=== PATIENT | female | born 1945 | race Caucasian/White ===

== ENCOUNTER → 2016-09-04 | Outpatient (CLI) | payer MEDICARE ==
--- NOTE | 2016-09-05 08:41 | US ---
EXAMINATION TYPE: US kidneys/renal and bladder DATE OF EXAM: 09/04/2016 5:45 PM COMPARISON: NONE CLINICAL HISTORY: E11.65 Type 2 diabetes w/hyperglycemia. EXAM MEASUREMENTS: Right Kidney: 10.5 x 5.2 x 4.9 cm Left Kidney: 10.2 x 4.8 x 4.7 cm Post Void Residual Volume: 9.6 mL Right Kidney: No hydronephrosis or masses seen Left Kidney: No hydronephrosis or masses seen Bladder: wnl Bilateral Jets seen: Yes Normal Post Void Residual: Yes IMPRESSION: No significant abnormalities.
== END | disposition home or self-care (01) ==
LOC: RADUSMAIN 17:23
PROVIDERS: ATTEND Family Medicine
DX: E11.65 Type 2 diabetes mellitus with hyperglycemia (principal)
CPT/HCPCS: 76770

== ENCOUNTER → 2017-01-24 | Outpatient (CLI) | payer MEDICARE ==
--- NOTE | 2017-01-25 11:05 | MM ---
Reason for exam: screening (asymptomatic). Last mammogram was performed 3 years ago. History: Patient is postmenopausal. Physical Findings: A clinical breast exam by your physician is recommended on an annual basis and results should be correlated with mammographic findings. MG 3D Screening Mammo W/Cad Bilateral CC and MLO view(s) were taken. Prior study comparison: January 28, 2014, bilateral MG screening mammo w CAD. July 25, 2012, bilateral digital screening mammo w/CAD. There are scattered fibroglandular densities. Benign calcifications in the left breast. No significant changes when compared with prior studies. ASSESSMENT: Benign, BI-RAD 2 RECOMMENDATION: Routine screening mammogram of both breasts in 1 year.
== END | disposition home or self-care (01) ==
LOC: RADMAMWWP 10:53
PROVIDERS: ATTEND Family Medicine
DX: Z12.31 Encounter for screening mammogram for malignant neoplasm of breast (principal)
CPT/HCPCS: 77063; G0202

== ENCOUNTER 2019-01-02 07:19 | Inpatient (IN) | payer MEDICARE ==
[2019-01-02] MEDS ORDERED: ASPIRIN 81 MG PO STA (07:35)
--- NOTE | 2019-01-02 07:39 | ED ---
General Adult HPI - General Chief complaint: Chest Pain Stated complaint: Chest Pain Time Seen by Provider: 01/02/19 07:28 Source: patient Mode of arrival: ambulatory Limitations: no limitations - History of Present Illness Initial comments: Dictation was produced using [employer] dictation software. please excuse any grammatical, word or spelling errors. Chief Complaint: 73-year-old female presents chief complaint of chest pain. History of Present Illness: Patient is 73-year-old female she presents today with chest pain. Patient was asleep when she was suddenly awoken by chest pain. She states that her symptoms, felt like epigastric abdominal pain. She did report some paresthesias to the left jaw and upper extremity. Patient has never had any symptoms like this before. She did feels nauseous however did not have any episodes of emesis. Patient has history of hypertension diabetes. Denies her seen toppiece chopper aspirin. Denies any worsening of symptoms with deep inspiration. She did feel slightly clammy however no diaphoresis. The ROS documented in this emergency department record has been reviewed and confirmed by me. Those systems with pertinent positive or negative responses have been documented in the HPI. All other systems are other negative and/or noncontributory. PHYSICAL EXAM: General Impression: Alert and oriented x3, mild distress secondary to pain HEENT: Normocephalic atraumatic, extra-ocular movements intact, pupils equal and reactive to light bilaterally, mucous membranes moist. Cardiovascular: Heart regular rate and rhythm, S1&S2 audible, no murmurs, rubs or gallops Chest: Lungs clear to auscultation bilaterally, no rhonchi, no wheeze, no rales Abdomen: Bowel sounds present, abdomen soft, non-tender, non-distended, no organomegaly Musculoskeletal: Pulses present and equal in all extremities, no peripheral edema Motor: no focal deficits noted Neurological: CN II-XII grossly intact, no focal motor or sensory deficits noted Skin: Intact with no visualized rashes Psych: Normal affect and mood ED course: 73-year-old female presents with chief complaint of chest pain. Clinical presentation is concerning for acute coronary syndrome given symptomatology. Vital signs upon arrival shows blood pressure 231/99. Rest vital signs within acceptable limits. EKG does not suggest ST segment elevation CT. Patient given aspirin and nitroglycerin with significant improvement of symptoms.Laboratory evaluation obtained. CBC, coag panel, metabolic panels obtained. Anemia is 1.1. Troponin 0.126. Patient reevaluated at bedside and is asymptomatic at this time. Repeat EKG was performed showing concerning findings for ischemia. There are T-wave inversions and possible ST elevations in the septal precordial leads that was not seen on initial EKG. There are no signs of reciprocal changes. Showed poor set her symptoms are very minimal at this time. Discussed patient case immediately with Dr. Reyes who will evaluate patient at bedside. Cardiology evaluated patient and will take patient to poultry farm laborer for coronary artery catheterization possible intervention. Discussed patient case with Dr. Harden who is willing to accept care for this patient. EKG interpretation: Ventricular rate 81, normal sinus rhythm, KS interval 152, care is 80, QTc 441. No KS prolongation, no QTC prolongation, no ST or T-wave changes noted. No old EKG for comparison. Overall, this EKG is unremarkable - Related Data Home Medications Medication Instructions Recorded Confirmed Omeprazole 20 mg PO QAM 08/01/15 01/02/19 Cetirizine HCl [Zyrtec] 10 mg PO DAILY 01/02/19 01/02/19 Losartan Potassium 100 mg PO BID 01/02/19 01/02/19 Multivit-Min/Iron/Folic/Lutein 1 tab PO DAILY 01/02/19 01/02/19 [Centrum Silver Women Tablet] sitaGLIPtin PHOS/metFORMIN HCL 1 tab PO BID 01/02/19 01/02/19 [Janumet 50-1,000 mg Tablet] Allergies Allergy/AdvReac Type Severity Reaction Status Date / Time codeine AdvReac Vomiting Verified 01/02/19 07:43 metoclopramide HCl AdvReac Hallucinati Verified 01/02/19 07:43 [From Reglan] ons morphine AdvReac Vomiting Verified 01/02/19 07:43 Review of Systems ROS Statement: Those systems with pertinent positive or pertinent negative responses have been documented in the HPI. ROS Other: All systems not noted in ROS Statement are negative. Past Medical History Past Medical History: Diabetes Mellitus, GERD/Reflux, Hypertension Additional Past Medical History / Comment(s): diarrhea since 01/2015 History of Any Multi-Drug Resistant Organisms: None Reported Past Surgical History: Tonsillectomy, Tubal Ligation Additional Past Surgical History / Comment(s): D & C Past Anesthesia/Blood Transfusion Reactions: Family History of Problems w/ Anesthesia, Postoperative Nausea & Vomiting (PONV) Past Psychological History: No Psychological Hx Reported Smoking Status: Never smoker Past Alcohol Use History: None Reported - Past Family History Mother Family Medical History: CVA/TIA, Diabetes Mellitus Additional Family Medical History / Comment(s): "blood clots in her legs when she was in her 40's from taking control" "she's 89" "just had a tia 3 months ago [05/2015] Father Family Medical History: Cancer, Congestive Heart Failure (CHF), Coronary Artery Disease (CAD), Diabetes Mellitus, Myocardial Infarction (CT) Additional Family Medical History / Comment(s): CA: skin ("tip top of his ear") General Exam Limitations: no limitations Course Vital Signs 01/02/19 01/02/19 01/02/19 07:21 07:59 08:01 Temperature 98 F Pulse Rate 85 87 87 Respiratory 18 18 18 Rate Blood Pressure 231/99 203/114 181/110 O2 Sat by Pulse 97 98 97 Oximetry 01/02/19 01/02/19 01/02/19 08:03 08:31 09:21 Temperature Pulse Rate 77 79 Respiratory 18 18 18 Rate Blood Pressure 154/95 163/110 O2 Sat by Pulse 97 96 Oximetry Medical Decision Making - Lab Data Result diagrams: 01/02/19 07:45 01/02/19 07:45 Lab Results 01/02/19 01/02/19 01/02/19 Range/Units 07:45 07:45 07:45 WBC 7.5 (3.8-10.6) k/uL RBC 4.81 (3.80-5.40) m/uL Hgb 13.2 (11.4-16.0) gm/dL Hct 39.8 (34.0-46.0) % MCV 82.7 (80.0-100.0) fL MCH 27.4 (25.0-35.0) pg MCHC 33.2 (31.0-37.0) g/dL RDW 15.0 (11.5-15.5) % Plt Count 219 (150-450) k/uL Neutrophils % 61 % Lymphocytes % 28 % Monocytes % 5 % Eosinophils % 3 % Basophils % 1 % Neutrophils # 4.6 (1.3-7.7) k/uL Lymphocytes # 2.1 (1.0-4.8) k/uL Monocytes # 0.4 (0-1.0) k/uL Eosinophils # 0.3 (0-0.7) k/uL Basophils # 0.1 (0-0.2) k/uL PT 10.0 (9.0-12.0) sec INR 0.9 (<1.2) APTT 24.3 (22.0-30.0) sec Sodium 144 (137-145) mmol/L Potassium 4.1 (3.5-5.1) mmol/L Chloride 107 (98-107) mmol/L Carbon Dioxide 23 (22-30) mmol/L Anion Gap 14 mmol/L BUN 22 H (7-17) mg/dL Creatinine 0.96 (0.52-1.04) mg/dL Est GFR (CKD-EPI)AfAm 69 (>60 ml/min/1.73 sqM) Est GFR (CKD-EPI)NonAf 60 (>60 ml/min/1.73 sqM) Glucose 242 H (74-99) mg/dL Calcium 10.2 (8.4-10.2) mg/dL Magnesium 1.1 L (1.6-2.3) mg/dL Total Bilirubin 0.5 (0.2-1.3) mg/dL AST 34 (14-36) U/L ALT 31 (9-52) U/L Alkaline Phosphatase 141 H (38-126) U/L Troponin I (0.000-0.034) ng/mL Total Protein 8.3 H (6.3-8.2) g/dL Albumin 4.7 (3.5-5.0) g/dL Lipase 165 (23-300) U/L 01/02/19 Range/Units 07:45 WBC (3.8-10.6) k/uL RBC (3.80-5.40) m/uL Hgb (11.4-16.0) gm/dL Hct (34.0-46.0) % MCV (80.0-100.0) fL MCH (25.0-35.0) pg MCHC (31.0-37.0) g/dL RDW (11.5-15.5) % Plt Count (150-450) k/uL Neutrophils % % Lymphocytes % % Monocytes % % Eosinophils % % Basophils % % Neutrophils # (1.3-7.7) k/uL Lymphocytes # (1.0-4.8) k/uL Monocytes # (0-1.0) k/uL Eosinophils # (0-0.7) k/uL Basophils # (0-0.2) k/uL PT (9.0-12.0) sec INR (<1.2) APTT (22.0-30.0) sec Sodium (137-145) mmol/L Potassium (3.5-5.1) mmol/L Chloride (98-107) mmol/L Carbon Dioxide (22-30) mmol/L Anion Gap mmol/L BUN (7-17) mg/dL Creatinine (0.52-1.04) mg/dL Est GFR (CKD-EPI)AfAm (>60 ml/min/1.73 sqM) Est GFR (CKD-EPI)NonAf (>60 ml/min/1.73 sqM) Glucose (74-99) mg/dL Calcium (8.4-10.2) mg/dL Magnesium (1.6-2.3) mg/dL Total Bilirubin (0.2-1.3) mg/dL AST (14-36) U/L ALT (9-52) U/L Alkaline Phosphatase (38-126) U/L Troponin I 0.126 H* (0.000-0.034) ng/mL Total Protein (6.3-8.2) g/dL Albumin (3.5-5.0) g/dL Lipase (23-300) U/L Disposition Clinical Impression: Chest pain Disposition: ADMITTED IP TO THIS HOSP Condition: Critical Decision Time: 09:32
[2019-01-02] MEDS: NITROGLYCERIN SL TABS 0.4 MG TAB SUBLINGUAL STA ×3 (07:46→08:08)
[2019-01-02 07:54] LABS: Basophils # (A) 0.1 k/uL (0-0.2); Basophils % (A) 1 %; Eosinophils # (A) 0.3 k/uL (0-0.7); Eosinophils % (A) 3 %; HCT 39.8 % (34.0-46.0); HGB 13.2 gm/dL (11.4-16.0); Lymphocytes # (A) 2.1 k/uL (1.0-4.8); Lymphocytes % (A) 28 %; MCH 27.4 pg (25.0-35.0); MCHC 33.2 g/dL (31.0-37.0); MCV 82.7 fL (80.0-100.0); Mean Platelet Volume 9.5; Monocytes # (A) 0.4 k/uL (0-1.0); Monocytes % (A) 5 %; Neutrophils # (A) 4.6 k/uL (1.3-7.7); Neutrophils % (A) 61 %; Platelet Count 219 k/uL (150-450); RBC 4.81 m/uL (3.80-5.40); WBC 7.5 k/uL (3.8-10.6)
[2019-01-02 08:04] LABS: Albumin 4.7 g/dL (3.5-5.0); Calcium 10.2 mg/dL (8.4-10.2); INR 0.9 (<1.2); Magnesium 1.1 mg/dL (1.6-2.3); Partial Thromboplastin Time 24.3 sec (22.0-30.0); Potassium 4.1 mmol/L (3.5-5.1); Total Bilirubin 0.5 mg/dL (0.2-1.3); Total Protein 8.3 g/dL (6.3-8.2)
[2019-01-02] MEDS ORDERED: NITROGLYCERIN OINT 1 INCH/GM PACKET TOPICAL STA (08:12)
--- NOTE | 2019-01-02 08:39 | XR ---
EXAMINATION TYPE: XR chest 2V DATE OF EXAM: 01/02/2019 COMPARISON: None INDICATION: Chest pain nausea TECHNIQUE: Frontal and lateral views of the chest are obtained. FINDINGS: The heart size is normal. The pulmonary vasculature is normal. The lungs are clear. IMPRESSION: 1. No acute pulmonary process.
--- NOTE | 2019-01-02 08:41 | XR ---
EXAMINATION TYPE: XR abdomen 1V DATE OF EXAM: 01/02/2019 COMPARISON: 07/02/2011 INDICATION: Nausea TECHNIQUE: Single view abdomen upright view FINDINGS: Specific bowel gas is present within the midabdomen. No free air is evident. No suspicious differenti al air-fluid levels are present. Psoas margins are normal. No organomegaly is present. There is a 0.8 cm calcification in the left hemipelvis, present previously. This may be within the sp bakari. IMPRESSION: 1. Stable left abdomen calcification. 2. Nonspecific abdomen
[2019-01-02] MEDS ORDERED: HEPARIN SODIUM,PORCINE 5,000 UNIT/ML 1 ML VIAL IV PRN (08:50)
[2019-01-02] MEDS ORDERED: HEPARIN SODIUM,PORCINE 5,000 UNIT/ML 1 ML VIAL IV ONE (08:50)
[2019-01-02] MEDS ORDERED: NITROGLYCERIN SL TABS 0.4 MG TAB SUBLINGUAL PRN ×3 (08:55→11:09)
[2019-01-02] MEDS ORDERED: METOPROLOL TARTRATE 25 MG TAB PO SCH (09:00)
[2019-01-02] MEDS ORDERED: HEPARIN SOD,PORK IN 0.45% NACL 25,000 UNIT in 0.45% NACL 1 250ML.BAG IV SCH (09:00)
[2019-01-02] MEDS: MAGNESIUM SULFATE-D5W PMX 1 GM in DEXTROSE/WATER 1 100ML.BAG IVPB SCH ×2 (09:12→11:42)
[2019-01-02] MEDS ORDERED: LIDOCAINE 1% INJ 10MG/ML (20 ML MDV) ONE (09:40)
[2019-01-02] MEDS ORDERED: VERAPAMIL 2.5 MG/ML 2 ML AMP ONE (09:40)
[2019-01-02] MEDS ORDERED: fentaNYL (PF) 50 MCG/ML 2 ML AMP ONE (09:40)
[2019-01-02] MEDS ORDERED: ALPRAZolam 0.5 MG TAB PO PRN (09:48)
[2019-01-02] MEDS ORDERED: ASPIRIN 325 MG TAB PO STA (09:48)
[2019-01-02] MEDS ORDERED: ATORVASTATIN 80 MG TAB PO STA (09:48)
[2019-01-02] MEDS ORDERED: ALPRAZolam 0.25 MG TAB PO PRN (09:48)
[2019-01-02] MEDS ORDERED: SODIUM CHLORIDE 0.9% 1,000 ML in EMPTY BAG 1 BAG IV ONE (09:48)
[2019-01-02] MEDS ORDERED: IV FLUID CONTINUATION 1,000 ML IV ONE (09:50)
[2019-01-02] MEDS ORDERED: fentaNYL (PF) 50 MCG/ML 2 ML AMP IV ONE (10:00)
[2019-01-02] MEDS ORDERED: LIDOCAINE 1% INJ 10MG/ML (20 ML MDV) SQ ONE (10:00)
[2019-01-02] MEDS ORDERED: NITROGLYCERIN SL TABS 0.4 MG TAB SUBLINGUAL ONE ×2 (10:01→10:02)
[2019-01-02] MEDS ORDERED: VERAPAMIL SYRINGE (5 MG/10 ML) INTRAARTER ONE (10:01)
[2019-01-02] MEDS ORDERED: BIVALIRUDIN BOLUS 250 MG/50 ML IV ONE (10:15)
[2019-01-02] MEDS ORDERED: BIVALIRUDIN 250 MG in SODIUM CHLORIDE 0.9% 50 ML IV ONE (10:16)
[2019-01-02] MEDS ORDERED: TICAGRELOR 90 MG TAB ONE (10:20)
[2019-01-02] MEDS ORDERED: TICAGRELOR 90 MG TAB PO ONE (10:23)
[2019-01-02] MEDS ORDERED: IOPAMIDOL-370 100ML BTL INJ ONE ×2 (10:24→10:44)
--- NOTE | 2019-01-02 10:35 | CONS ---
CONSULTATION Mrs. Jones is a 73-year-old female with known history of family history of premature coronary artery disease, history of diabetes, hypertension, no history of smoking, who presented with symptoms of chest discomfort. She started yesterday complaining of indigestion, subsequently had chest discomfort radiating to the neck and to the left arm. Because of her persistent symptoms, she came into the emergency room. The patient at the time of my evaluation, has improvement in her symptoms. She is usually average in exercise tolerance, has no exertional chest discomfort. She has mild dyspnea. No dizziness. No palpitation. No syncope. She has no prior documented history of obstructive coronary artery disease. She has no clear PND or orthopnea. No significant peripheral edema. Her initial EKG showed minimal ST-segment elevation on the lateral precordial leads. Subsequent EKG showed T-wave inversion in the anterolateral leads consistent with anterior wall ischemia. REVIEW OF SYSTEMS: RESPIRATORY SYSTEM: She has no documented history of asthma, emphysema or bronchitis. GI SYSTEM: She has history of reflux, but no recent GI bleeding. No peptic ulcer disease. SYSTEM: No dysuria or hematuria. NERVOUS SYSTEM: No history of stroke or seizure. SOCIAL HISTORY: She drinks about 4 cups of coffee a day. No history of alcohol intake. MEDICATIONS: Her medication her home include losartan 100 mg daily, Janumet 50-1000 daily, and omeprazole. PHYSICAL EXAMINATION: She is a 73-year-old female, alert, oriented, in no apparent distress. Blood pressure 163/110 with the heart rate in the 70s. HEAD: Normocephalic. EYES: Sclerae anicteric. NECK: Good carotid upstroke. No bruit. No jugular venous distention. LUNGS: Clear to auscultation. HEART: Regular rate and rhythm. S1, S2. No S3 with systolic murmur heard at the base, early peaking. No diastolic murmur. No rub. ABDOMEN: Soft, nontender. Positive bowel sounds. No organomegaly. EXTREMITIES: No edema. Intact distal pulses. LAB DATA: Lab data revealed a hemoglobin of 13.2. BUN and creatinine 22 and 0.96. Blood sugar 242. Troponin 0.126. Initial EKG revealed a sinus mechanism with a normal axis, evidence of left ventricular hypertrophy with minimal ST-segment elevation in lead V2 through V6. Subsequent EKG revealed T-wave inversion in the same leads with minimal ST-segment changes. IMPRESSION: 1. Evidence of acute myocardial infarction in a patient with multiple risk factors. 2. History of hypertension. 3. Diabetes. 4. Family history of premature coronary artery disease. RECOMMENDATION: I recommend proceeding with coronary angiography to assess her status and guide her treatment. The rationale behind the procedure as well as the risks and complications were discussed with the patient and her daughter and they are in full understanding and agreement. Thank you for this consult. We will follow with you. RITU / IJN: [id number] /
[2019-01-02] MEDS ORDERED: MAG HYDROX/AL HYDROX/SIMETH 30 ML CUP PO PRN (11:09)
[2019-01-02] MEDS ORDERED: ZOLPIDEM 5 MG TAB PO PRN (11:09)
[2019-01-02] MEDS ORDERED: ATROPINE SULFATE 0.1 MG/ML 10ML SYRINGE IV PRN (11:09)
[2019-01-02] MEDS ORDERED: RX INFO: IV CONTRAST WAS GIVEN 1 EACH MISC MISCELLANE PRN (11:09)
[2019-01-02] MEDS ORDERED: SODIUM CHLORIDE 0.9% 1,000 ML IV SCH (11:15)
[2019-01-02] MEDS: LOSARTAN 50 MG TAB PO SCH (11:43)
[2019-01-02 11:50] LABS: Glucose,Whole Blood 214 mg/dL (75-99)
[2019-01-02 12:29] LABS: Glucose,Whole Blood 219 mg/dL (75-99)
--- NOTE | 2019-01-02 12:35 | CC ---
CARDIAC CATHETERIZATION REPORT Mrs. Jones is a 73-year-old female with known history of diabetes, history of hypertension, family history of premature coronary disease who presented to the emergency room with symptoms of chest discomfort radiating to the neck and to the jaw. She had minimal ST-segment elevation initially and subsequently she had T-wave inversion in the anterolateral leads. In view of her presentation and her history, recommendation made regarding cardiac catheterization, the procedures, risks, and complications were discussed with the patient who is in full understanding and agreement. PROCEDURE: Patient was brought to sleep lab technician in a fasting semi-sedated state after receiving fentanyl and Benadryl and achieving moderate conscious sedated state. Using Xylocaine anesthesia and Seldinger technique, a 6-[place] sheath was introduced in the right radial artery. There was a big loop in the right subclavian artery that prevented torquing of the catheter. In view of that, using Xylocaine anesthesia and Seldinger technique, a 6-[place] sheath was introduced right femoral artery, left coronary angiography performed with 6-[place] FR4 guiding catheter after obtaining images of the left coronary system and angioplasty and stenting. A 6-[place] right Gurwinder catheter was used to cannulate the right coronary ostium and images of the right coronary artery was performed. Following that, a 6-[place] tight pigtail catheter was introduced in the left ventricle and pressures were calculated, following that, catheter and sheaths were removed. Hemostasis was obtained with deployment of an Angio-Seal in the right femoral artery and compression of the right radial artery. There was no immediate complication. Patient is returned to her room in stable condition. FINDINGS: LEFT MAIN: This is a large-sized vessel, bifurcating into left circumflex, left anterior descending artery. Left main coronary artery has no evidence of high-grade stenosis. LEFT ANTERIOR DESCENDING ARTERY: This is a large-sized vessel, reaching toward the apex, tapers down distally giving rise to a small diagonal branch proximally, the second diagonal branch is large in caliber, very tortuous. The LAD after the takeoff of second diagonal branch has a 99% stenosis with slow flow distally. The second diagonal branch is very tortuous and toward the distal segment has a lesion of 95%. LEFT CIRCUMFLEX: This is a nondominant vessel, giving rise to two obtuse marginal branch, the vessel is quite tortuous. The left circumflex proximally, prior to the takeoff of the obtuse marginal branch has a 30% plaque. The rest of the vessel has no high-grade stenosis. RIGHT CORONARY ARTERY: This is a large dominant vessel, bifurcating into PDA and posterolateral segment and branches. The right PDA reaches toward the infero apical wall of the right coronary artery as well as branches have no evidence of obstructive coronary artery disease. LEFT VENTRICULOGRAM: Left ventriculogram is not performed. HEMODYNAMICS: There was no gradient across the aortic valve, the left ventricular end-diastolic pressure was 24 to 26 mmHg. CONCLUSION: 1. 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 2. Critical stenosis and a very tortuous second obtuse marginal branch. 3. Mild to moderate disease in the proximal left circumflex. RECOMMENDATION: In view of finding anatomy, I recommend proceeding with angioplasty and stenting of the LAD. The procedures, risks and complication were discussed with the patient who is in full understanding and agreement. MMBALJEET / IJN: [id number] /
--- NOTE | 2019-01-02 12:56 | PTCA ---
PERCUTANEOUSTRANS CORORONARY ANGIOGRAPHY ANGIOPLASTY PROCEDURE NOTE: Mrs. Jones is a 73-year-old female who presented with an acute anterior myocardial infarction, underwent cardiac catheterization, was found to have critical stenosis involving the mid LAD. In view of that, recommendation made regarding angioplasty and stenting. The procedures, risks and complication were discussed with the patient who is in full understanding and agreement. PROCEDURE DESCRIPTION: Using the 6-[place] FR4 guiding catheter, a 0.014 balanced medium weight J-wire was advanced across the lesion, positioned distally. Then a 2.5 x 12 mm Trek balloon was advanced and one inflation was done at 8 atmospheres. Following that, the balloon was removed and a 3.0 x 18 mm Xience Kellen stent was deployed, postdilated to 16 atmospheres. After the last inflation, after appropriate wait, the balloon was withdrawn back in the guiding catheter. Following that, a 0.014 balanced medium weight J-wire was advanced in the system and passed into the second diagonal branch. Because of the severe tortuosity, there was inability to advance that wire. That wire was kept in place and another 0.014 whisper J-wire was advanced and positioned across the lesion. Subsequently, attempt to advance a 2.5 x 8 mm Trek balloon were unsuccessful because of the severe tortuosity at that point, the guiding wire, the balloon were withdrawn back in the guiding catheter. Images were obtained, repeated. Those images reveal stable successful stenting. At that point, the guiding catheter, the balloon and the guidewire were removed and right coronary angiography and left ventricular end- diastolic pressure were calculated. Following that catheter and sheaths were removed. Hemostasis was obtained with deployment of an Angio-Seal in the right femoral artery and TR band on the right radial artery. Of note, the patient received Angiomax per protocol as well as oral loading dose of Brilinta. She was pain-free at the end of the procedure. RESULTS: Successful stenting of the mid right coronary artery with reduction of stenosis from 99% to 0%. RECOMMENDATION: Patient will be continued on aspirin, Brilinta, beta ramos, IRWIN inhibitor, statin. The importance of dual antiplatelet treatment was discussed with the patient and her family and they are in full understanding and agreement. Duration of procedure is 51 minutes. MMODL / IJN: [id number] /
[2019-01-02] MEDS: INSULIN ASPART (NovoLOG) 100 UNIT/ML VIAL SQ SCH ×3 (13:01→20:46)
[2019-01-02 14:20] VITALS: BMI 31.1
[2019-01-02] MEDS ORDERED: METOPROLOL TARTRATE 25 MG TAB PO STA (15:07)
[2019-01-02] MEDS ORDERED: ONDANSETRON 4 MG/2 ML VIAL IVP PRN (15:08)
[2019-01-02 17:52] LABS: Glucose,Whole Blood 194 mg/dL (75-99)
[2019-01-02] MEDS ORDERED: FUROSEMIDE 10 MG/ML 2 ML VIAL IV ONE (19:01)
[2019-01-02] MEDS ORDERED: hydrALAZINE HCL 50 MG TAB PO SCH (19:02)
[2019-01-02] MEDS ORDERED: hydrALAZINE HCL 50 MG TAB PO STA (19:28)
[2019-01-02] MEDS: TICAGRELOR 90 MG TAB PO SCH (20:32)
[2019-01-02] MEDS: ATORVASTATIN 80 MG TAB PO SCH (20:32)
[2019-01-02 20:41] LABS: Glucose,Whole Blood 147 mg/dL (75-99)
[2019-01-02] MEDS ORDERED: hydrALAZINE HCL 25 MG TAB PO SCH (21:00)
[2019-01-02] MEDS: METOPROLOL TARTRATE 25 MG TAB PO SCH (22:15)
[2019-01-03 05:05] LABS: Basophils # (A) 0.1 k/uL (0-0.2); Basophils % (A) 0 %; Eosinophils # (A) 0.2 k/uL (0-0.7); Eosinophils % (A) 2 %; HCT 35.9 % (34.0-46.0); HGB 11.9 gm/dL (11.4-16.0); Lymphocytes # (A) 2.9 k/uL (1.0-4.8); Lymphocytes % (A) 23 %; MCH 26.9 pg (25.0-35.0); MCHC 33.1 g/dL (31.0-37.0); MCV 81.1 fL (80.0-100.0); Mean Platelet Volume 9.6; Monocytes # (A) 0.6 k/uL (0-1.0); Monocytes % (A) 5 %; Neutrophils # (A) 8.4 k/uL (1.3-7.7); Neutrophils % (A) 68 %; Platelet Count 218 k/uL (150-450); RBC 4.43 m/uL (3.80-5.40); RDW 15.1 % (11.5-15.5); WBC 12.4 k/uL (3.8-10.6)
[2019-01-03 05:17] LABS: Calcium 8.9 mg/dL (8.4-10.2); Potassium 3.8 mmol/L (3.5-5.1)
--- NOTE | 2019-01-03 06:45 | ECHOF ---
Referral Reason:mi MEASUREMENTS -------- HEIGHT: 157.5 cm WEIGHT: 77.1 kg BP: 163/92 RVIDd: 2.9 cm (< 3.3) IVSd: 1.3 cm (0.6 - 1.1) LVIDd: 4.2 cm (3.9 - 5.3) LVPWd: 1.3 cm (0.6 - 1.1) IVSs: 1.6 cm LVIDs: 2.7 cm LVPWs: 1.6 cm LA Diam: 3.4 cm (2.7 - 3.8) LAESV Index (A-L): 21.66 ml/m Ao Diam: 2.9 cm (2.0 - 3.7) AV Cusp: 1.9 cm (1.5 - 2.6) MV EXCURSION: 12.495 mm (> 18.000) MV EF SLOPE: 38 mm/s (70 - 150) EPSS: 1.4 cm MV E Moises: 0.59 m/s MV DecT: 282 ms MV A Moises: 0.99 m/s MV E/A Ratio: 0.59 FINDINGS -------- Sinus rhythm. This was a technically adequate study. The left ventricular size is normal. There is mild concentric left ventricular hypertrophy. Overa ll left ventricular systolic function is mild-moderately impaired with, an EF between 40 - 45 %. Ap ical anterior LV wall motion is hypokinetic. Apical inferior LV wall motion is hypokinetic. Api wes septum LV wall motion is hypokinetic. ?? Takatsubo The right ventricle is normal in size. Normal LA size by volume 22+/-6 ml/m2. The right atrium is normal in size. Interatrial and interventricular septum intact. There is mild aortic valve sclerosis. The mitral valve leaflets are mildly thickened. The tricuspid valve appears structurally normal. The pulmonic valve was not well visualized. The aortic root size is normal. Normal inferior vena cava with normal inspiratory collapse consistent with estimated right atrial pre ssure of 5 mmHg. There is no pericardial effusion. CONCLUSIONS -------- 1. Sinus rhythm. 2. This was a technically adequate study. 3. The left ventricular size is normal. 4. There is mild concentric left ventricular hypertrophy. 5. Apical anterior LV wall motion is hypokinetic. 6. Apical inferior LV wall motion is hypokinetic. 7. Apical septum LV wall motion is hypokinetic. 8. The right ventricle is normal in size. 9. Normal LA size by volume 22+/-6 ml/m2. 10. The right atrium is normal in size. 11. Interatrial and interventricular septum intact. 12. There is mild aortic valve sclerosis. 13. The mitral valve leaflets are mildly thickened. 14. The tricuspid valve appears structurally normal. 15. The pulmonic valve was not well visualized. 16. The aortic root size is normal. 17. Normal inferior vena cava with normal inspiratory collapse consistent with estimated right atrial pressure of 5 mmHg. 18. There is no pericardial effusion. AGRICULTURE LABORATORY TECHNICIAN: Becca Amos RDCS
[2019-01-03 06:57] LABS: Glucose,Whole Blood 213 mg/dL (75-99)
[2019-01-03] MEDS: INSULIN ASPART (NovoLOG) 100 UNIT/ML VIAL SQ SCH ×4 (07:02→21:15)
[2019-01-03] MEDS ORDERED: ASPIRIN 325 MG TAB PO SCH (09:00)
[2019-01-03] MEDS: ASPIRIN 81 MG PO SCH (10:13)
[2019-01-03] MEDS: hydrALAZINE HCL 50 MG TAB PO SCH ×3 (10:13→21:15)
[2019-01-03] MEDS: METOPROLOL TARTRATE 25 MG TAB PO SCH ×2 (10:14→21:15)
[2019-01-03] MEDS: TICAGRELOR 90 MG TAB PO SCH ×2 (10:14→21:17)
[2019-01-03] MEDS: LOSARTAN 50 MG TAB PO SCH (10:14)
[2019-01-03 11:31] LABS: Glucose,Whole Blood 240 mg/dL (75-99)
[2019-01-03] MEDS: PANTOPRAZOLE 40 MG TABLET PO SCH (12:26)
[2019-01-03] MEDS: amLODIPine 10 MG TAB PO SCH (12:26)
[2019-01-03] MEDS ORDERED: ACETAMINOPHEN TAB 500 MG TAB PO PRN (14:04)
--- NOTE | 2019-01-03 16:06 | P.HPIM ---
History of Present Illness This is a pleasant 73 years old female with past medical history of COPD, diabetes mellitus, hypertension, GERD. She presents with chest pain. Patient underwent cardiac cath yesterday with stent placement in LAD. Cardiology team are closely following the patient. Patient has no complaints today except for mild stomach upset. She has mild leukocytosis. Review of Systems CONSTITUTIONAL: No fever, no malaise, no fatigue. HEENT: No recent visual problems or hearing problems. Denied any sore throat. CARDIOVASCULAR: No orthopnea, PND, no palpitations, no syncope. PULMONARY: No shortness of breath, no cough, no hemoptysis. GASTROINTESTINAL: No diarrhea, no nausea, no vomiting, no abdominal pain. Normoactive bowel sounds. NEUROLOGICAL: No headaches, no weakness, no numbness. HEMATOLOGICAL: Denies any bleeding or petechiae. GENITOURINARY: Denies any burning micturition, frequency, or urgency. MUSCULOSKELETAL/RHEUMATOLOGICAL: Denies any joint pain, swelling, or any muscle pain. ENDOCRINE: Denies any polyuria or polydipsia. Past Medical History Past Medical History: COPD, Diabetes Mellitus, GERD/Reflux, Hypertension Additional Past Medical History / Comment(s): NIDDM type II, borderline high cholesterol, recently "pulled" R upper arm muscle, diarrhea on and off d/t metformin per pt, R leg varicosity, seasonal sinus problems. History of Any Multi-Drug Resistant Organisms: None Reported Past Surgical History: Tonsillectomy, Tubal Ligation Additional Past Surgical History / Comment(s): D & C, colonoscopy with cecal polypectomy, bilateral cataract removals/lens implants. Past Anesthesia/Blood Transfusion Reactions: Postoperative Nausea & Vomiting (PONV) Smoking Status: Never smoker - Past Family History Mother Family Medical History: CVA/TIA, Diabetes Mellitus, Deep Vein Thrombosis (DVT) Additional Family Medical History / Comment(s): "blood clots in her legs when she was in her 40's from taking control". TIAs Father Family Medical History: Cancer, Congestive Heart Failure (CHF), Coronary Artery Disease (CAD), Diabetes Mellitus, Myocardial Infarction (CT) Additional Family Medical History / Comment(s): Father had a CT at the age of 54yrs. CA: skin ("tip top of his ear"). He of CHF at the age of 84 yrs. Medications and Allergies Home Medications Medication Instructions Recorded Confirmed Type Omeprazole 20 mg PO QAM 08/01/15 01/02/19 History Cetirizine HCl [Zyrtec] 10 mg PO DAILY 01/02/19 01/02/19 History Losartan Potassium 100 mg PO BID 01/02/19 01/02/19 History Multivit-Min/Iron/Folic/Lutein 1 tab PO DAILY 01/02/19 01/02/19 History [Centrum Silver Women Tablet] sitaGLIPtin PHOS/metFORMIN HCL 1 tab PO BID 01/02/19 01/02/19 History [Janumet 50-1,000 mg Tablet] Allergies Allergy/AdvReac Type Severity Reaction Status Date / Time codeine AdvReac Vomiting Verified 01/02/19 07:43 metoclopramide HCl AdvReac Hallucinati Verified 01/02/19 07:43 [From Reglan] ons morphine AdvReac Vomiting Verified 01/02/19 07:43 Physical Exam Vitals: Vital Signs Temp Pulse Resp BP BP Pulse Ox 01/03/19 14:54 160/84 01/03/19 13:00 78 18 151/86 01/03/19 12:00 98.0 F 61 20 149/73 95 01/03/19 11:00 63 17 140/83 95 01/03/19 10:00 85 20 164/89 01/03/19 09:00 73 18 154/79 95 01/03/19 08:00 98.3 F 70 15 161/86 94 L 01/03/19 06:00 66 12 149/69 93 L 01/03/19 05:30 62 15 142/75 96 01/03/19 05:00 66 18 148/73 95 01/03/19 04:30 67 20 153/78 94 L 01/03/19 04:00 99.2 F 68 14 121/95 96 01/03/19 03:30 63 23 134/81 95 01/03/19 03:00 61 22 147/76 95 01/03/19 02:30 63 23 128/74 95 01/03/19 02:00 65 23 110/77 93 L 01/03/19 01:30 61 24 106/74 94 L 01/03/19 01:00 60 23 141/73 97 01/03/19 00:30 62 15 135/66 96 01/03/19 00:00 99.5 F 62 18 124/67 97 01/02/19 23:30 63 12 109/96 96 01/02/19 23:00 69 18 159/89 95 01/02/19 22:30 77 14 145/73 96 01/02/19 22:00 78 12 140/80 97 01/02/19 21:30 78 17 160/80 97 01/02/19 21:00 73 23 166/89 95 01/02/19 20:30 72 155/86 95 01/02/19 20:00 99.8 F H 70 140/126 95 01/02/19 19:00 69 30 H 170/99 96 01/02/19 18:30 72 17 173/94 96 01/02/19 18:00 67 16 178/90 98 01/02/19 17:30 62 25 H 179/90 98 01/02/19 17:00 61 24 166/97 97 01/02/19 16:40 61 18 166/97 98 01/02/19 16:30 60 10 L 176/86 98 01/02/19 16:10 66 18 192/118 99 Intake and Output 01/03/19 01/03/19 01/03/19 06:59 14:59 22:59 Intake Total 800 1300 Output Total 635 750 Balance 165 550 Intake: IV 800 800 Sodium Chloride 0.9% 1, 800 800 000 ml @ 100 mls/hr IV . Q10H COUNTS INCLUDE 234 BEDS AT THE [facility] Rx#:[id number] Oral 500 Output: Urine 635 750 Other: Voiding Method Indwelling Catheter Indwelling Catheter Weight 82.1 kg GENERAL: The patient is alert and oriented x3, not in any acute distress. Well developed, well nourished. HEENT: Pupils are round and equally reacting to light. EOMI. No scleral icterus. No conjunctival pallor. Normocephalic, atraumatic. No pharyngeal erythema. No thyromegaly. CARDIOVASCULAR: S1 and S2 present. No murmurs, rubs, or gallops. PULMONARY: Chest is clear to auscultation, no wheezing or crackles. ABDOMEN: Soft, nontender, nondistended, normoactive bowel sounds. No palpable organomegaly. MUSCULOSKELETAL: No joint swelling or deformity. EXTREMITIES: No cyanosis, clubbing, or pedal edema. NEUROLOGICAL: Gross neurological examination did not reveal any focal deficits. SKIN: No rashes. Results CBC & Chem 7: 01/03/19 04:24 01/03/19 04:24 Labs: Abnormal Lab Results - Last 24 Hours (Table) 01/02/19 01/02/19 01/02/19 Range/Units 17:51 18:02 20:39 WBC (3.8-10.6) k/uL Neutrophils # (1.3-7.7) k/uL Chloride (98-107) mmol/L Carbon Dioxide (22-30) mmol/L Glucose (74-99) mg/dL POC Glucose (mg/dL) 194 H 147 H (75-99) mg/dL Troponin I 1.290 H* (0.000-0.034) ng/mL 01/02/19 01/03/19 01/03/19 Range/Units 23:32 04:24 04:24 WBC 12.4 H (3.8-10.6) k/uL Neutrophils # 8.4 H (1.3-7.7) k/uL Chloride 108 H (98-107) mmol/L Carbon Dioxide 21 L (22-30) mmol/L Glucose 178 H (74-99) mg/dL POC Glucose (mg/dL) (75-99) mg/dL Troponin I 2.190 H* (0.000-0.034) ng/mL 01/03/19 01/03/19 Range/Units 06:55 11:29 WBC (3.8-10.6) k/uL Neutrophils # (1.3-7.7) k/uL Chloride (98-107) mmol/L Carbon Dioxide (22-30) mmol/L Glucose (74-99) mg/dL POC Glucose (mg/dL) 213 H 240 H (75-99) mg/dL Troponin I (0.000-0.034) ng/mL Thrombosis Risk Factor Assmnt - Choose All That Apply Any of the Below Risk Factors Present?: Yes Each Factor Represents 1 point: Abnormal pulmonary function (COPD), Obesity (BMI >25) Other Risk Factors: Yes Each Risk Factor Represents 2 Points: Age 61-74 years Other congenital or acquired thrombophilia - If yes, enter type in comment: No Thrombosis Risk Factor Assessment Total Risk Factor Score: 4 Thrombosis Risk Factor Assessment Level: Moderate Risk Assessment and Plan Assessment: Chest pain. Status post cardiac cath and stent placement Diabetes mellitus Hypertension mild leukocytosis, mostly reactive COPD with no acute exacerbation Plan: This is a pleasant 73 years old female who presents because of chest pain. She underwent cardiac cath and stent placement by program research specialist team. Continue with aspirin and Brilinta Labs and medication were reviewed.. Continue same treatment. Continue with symptomatic treatment. Resume home medication. Monitor lytes and vitals. DVT and GI prophylaxis. Further recommendations of the clinical course of the patient DVT prophylaxis: Subcutaneous Lovenox GI Prophylaxis: Pepcid
[2019-01-03 16:56] LABS: Glucose,Whole Blood 264 mg/dL (75-99)
--- NOTE | 2019-01-03 20:42 | PN ---
PROGRESS NOTE This is a 73-year-old lady that was admitted to hospital with non ST-segment elevation [place]. Underwent cardiac catheterization and angioplasty of mid LAD. This morning, the patient is doing well and is free of significant symptoms. On exam, blood pressure is elevated at 150/79, respiratory rate is 18. Chest exam reveals good air entry bilaterally. Heart exam reveals first and second heart sounds. No gallop. Exam of extremities did not reveal any edema. Groin is free of bleeding, bruit, hematoma. The radial artery site appears normal. ASSESSMENT: 1. Acute non ST-segment elevation myocardial infarction, status post angioplasty of LAD. 2. Uncontrolled hypertension. PLAN: I will add amlodipine 10 mg daily for optimal blood pressure control. An echocardiogram on this admission shows an ejection fraction of 40-45 percent. MMMASTERL / IJN: [id number] /
[2019-01-03] MEDS: ATORVASTATIN 80 MG TAB PO SCH (21:15)
[2019-01-03] MEDS: FAMOTIDINE 20 MG/2 ML VIAL IV SCH (21:15)
[2019-01-03 21:25] LABS: Glucose,Whole Blood 183 mg/dL (75-99)
[2019-01-03] MEDS ORDERED: Magnesium Replacement Protocol 1 EACH MISC MISCELLANE PRN (21:25)
[2019-01-04 05:40] LABS: Basophils # (A) 0.1 k/uL (0-0.2); Basophils % (A) 1 %; Eosinophils # (A) 0.2 k/uL (0-0.7); Eosinophils % (A) 3 %; HGB 12.3 gm/dL (11.4-16.0); Lymphocytes # (A) 2.2 k/uL (1.0-4.8); Lymphocytes % (A) 22 %; MCH 27.2 pg (25.0-35.0); MCHC 33.2 g/dL (31.0-37.0); MCV 81.9 fL (80.0-100.0); Mean Platelet Volume 9.7; Monocytes # (A) 0.6 k/uL (0-1.0); Monocytes % (A) 6 %; Neutrophils # (A) 6.4 k/uL (1.3-7.7); Neutrophils % (A) 66 %; Platelet Count 216 k/uL (150-450); RBC 4.51 m/uL (3.80-5.40); RDW 15.2 % (11.5-15.5); WBC 9.6 k/uL (3.8-10.6)
[2019-01-04 05:48] LABS: Calcium 9.7 mg/dL (8.4-10.2); Magnesium 1.7 mg/dL (1.6-2.3); Potassium 4.5 mmol/L (3.5-5.1)
[2019-01-04] MEDS: INSULIN DETEMIR (LEVEMIR) 100 UNIT/ML SYR SQ SCH ×2 (06:36→21:20)
[2019-01-04] MEDS: PANTOPRAZOLE 40 MG TABLET PO SCH (06:42)
[2019-01-04] MEDS: INSULIN ASPART (NovoLOG) 100 UNIT/ML VIAL SQ SCH ×4 (06:42→20:17)
[2019-01-04 06:52] LABS: Glucose,Whole Blood 227 mg/dL (75-99)
[2019-01-04] MEDS: METOPROLOL TARTRATE 25 MG TAB PO SCH ×2 (08:02→20:16)
[2019-01-04] MEDS: amLODIPine 10 MG TAB PO SCH (08:02)
[2019-01-04] MEDS: hydrALAZINE HCL 50 MG TAB PO SCH ×2 (08:02→20:16)
[2019-01-04] MEDS: ASPIRIN 81 MG PO SCH (08:02)
[2019-01-04] MEDS: HEPARIN SODIUM,PORCINE 5,000 UNIT/ML 1 ML VIAL SQ SCH ×2 (08:02→20:17)
[2019-01-04] MEDS: LOSARTAN 50 MG TAB PO SCH (08:02)
[2019-01-04] MEDS: TICAGRELOR 90 MG TAB PO SCH ×2 (08:02→20:17)
[2019-01-04] MEDS: FAMOTIDINE 20 MG/2 ML VIAL IV SCH ×2 (08:04→20:16)
[2019-01-04] MEDS ORDERED: ENOXAPARIN 40 MG/0.4 ML SYRINGE SQ SCH (09:00)
[2019-01-04 11:50] LABS: Glucose,Whole Blood 223 mg/dL (75-99)
--- NOTE | 2019-01-04 13:02 | P.PN ---
Objective - Vital Signs Vital signs: Vital Signs Temp 97.9 F 01/04/19 11:50 Pulse 68 01/04/19 11:50 Resp 18 01/04/19 11:50 BP 173/88 01/04/19 11:50 Pulse Ox 97 01/04/19 11:50 Intake & Output 01/03/19 01/04/19 01/04/19 18:59 06:59 18:59 Intake Total 1540 Output Total 750 Balance 790 Weight 79.7 kg Intake: IV 800 Sodium Chloride 0.9% 1, 800 000 ml @ 100 mls/hr IV . Q10H DIP[facility] Rx#:[id number] Oral 740 Output: Urine 750 Other: Voiding Method Indwelling Catheter Toilet # Voids 1 - Exam This is a pleasant 73 years old female with past medical history of COPD, diabetes mellitus, hypertension, GERD. She presents with chest pain. Patient underwent cardiac cath yesterday with stent placement in LAD. Cardiology team are closely following the patient. Patient has no complaints today except for mild stomach upset. She has mild leukocytosis. 01/04/2019 Patient is awake and alert. She denies chest pain and or dyspnea today. Yesterday night she had 5 minute duration of chest pain which is resolved. Her mild epigastric discomfort also was relieved. Her blood pressure is still elevated this morning it was 93/88. Heart rate is 61-71. We will increase her hydralazine dose 200 mg twice daily. - Labs CBC & Chem 7: 01/04/19 05:03 01/04/19 05:03 Labs: Abnormal Lab Results - Last 24 Hours (Table) 01/03/19 01/03/19 01/04/19 Range/Units 16:46 21:11 05:03 Chloride 109 H (98-107) mmol/L Glucose 223 H (74-99) mg/dL POC Glucose (mg/dL) 264 H 183 H (75-99) mg/dL 01/04/19 01/04/19 Range/Units 06:35 11:45 Chloride (98-107) mmol/L Glucose (74-99) mg/dL POC Glucose (mg/dL) 227 H 223 H (75-99) mg/dL Assessment and Plan Assessment: Chest pain. Status post cardiac cath and stent placement Diabetes mellitus Hypertension mild leukocytosis, mostly reactive COPD with no acute exacerbation Plan: This is a pleasant 73 years old female who presents because of chest pain. She underwent cardiac cath and stent placement by aboriginal education teacher team. Continue with aspirin and Brilinta Labs and medication were reviewed.. Continue same treatment. Continue with symptomatic treatment. Resume home medication. Monitor lytes and vitals. DVT and GI prophylaxis. Further recommendations of the clinical course of the patient DVT prophylaxis: Subcutaneous Lovenox GI Prophylaxis: Pepcid
[2019-01-04 17:12] LABS: Glucose,Whole Blood 233 mg/dL (75-99)
[2019-01-04 20:08] LABS: Glucose,Whole Blood 225 mg/dL (75-99)
[2019-01-04] MEDS: ATORVASTATIN 80 MG TAB PO SCH (20:16)
--- NOTE | 2019-01-04 22:05 | CONS ---
CONSULTATION Marcella is a 73-year-old lady was admitted to hospital with non ST-segment elevation [place]. Underwent cardiac catheterization and angioplasty. This morning patient is doing well and is free of significant cardiac symptoms. Her ejection fraction is 40-45 percent. EXAM: Comfortable at rest. Blood pressure is elevated. There is no jugular venous distention. Carotid upstroke is normal. There is no bruit. Chest exam reveals good air entry bilaterally. Heart exam reveals first and second heart sounds. No gallop. No murmur. Abdomen is soft, nontender. Exam of extremities did not reveal any edema. Peripheral pulses are palpable. ASSESSMENT: 1. Coronary artery disease status post angioplasty. 2. Uncontrolled hypertension. PLAN: I am going to add hydralazine to her medical regimen. She is stable for discharge tomorrow. MMODL / IJN: [id number] /
[2019-01-04] MEDS ORDERED: INSULIN DETEMIR (LEVEMIR) 100 UNIT/ML SYR SQ ONE (22:25)
[2019-01-05 06:32] LABS: Glucose,Whole Blood 252 mg/dL (75-99)
[2019-01-05 06:38] LABS: Calcium 10.1 mg/dL (8.4-10.2); Potassium 4.1 mmol/L (3.5-5.1)
[2019-01-05] MEDS: PANTOPRAZOLE 40 MG TABLET PO SCH (06:55)
[2019-01-05] MEDS: INSULIN ASPART (NovoLOG) 100 UNIT/ML VIAL SQ SCH (06:55)
[2019-01-05] MEDS: FAMOTIDINE 20 MG/2 ML VIAL IV SCH (08:22)
[2019-01-05 08:36] VITALS: RESP 18
[2019-01-05] MEDS: METOPROLOL TARTRATE 25 MG TAB PO SCH (08:37)
[2019-01-05] MEDS: LOSARTAN 50 MG TAB PO SCH (08:37)
[2019-01-05] MEDS: ASPIRIN 81 MG PO SCH (08:37)
[2019-01-05] MEDS: TICAGRELOR 90 MG TAB PO SCH (08:37)
[2019-01-05] MEDS: amLODIPine 10 MG TAB PO SCH (08:37)
[2019-01-05] MEDS: hydrALAZINE HCL 50 MG TAB PO SCH (08:38)
[2019-01-05] MEDS: HEPARIN SODIUM,PORCINE 5,000 UNIT/ML 1 ML VIAL SQ SCH (08:41)
[2019-01-05] MEDS ORDERED: METOPROLOL TARTRATE 50 MG TAB PO SCH (09:00)
[2019-01-05] MEDS ORDERED: METOPROLOL TARTRATE 25 MG TAB PO STA (09:28)
[2019-01-05 11:19] VITALS: BP 144/82; PULSE 87; TEMP 97.8
[2019-01-05 11:34] LABS: Glucose,Whole Blood 250 mg/dL (75-99)
--- NOTE | 2019-01-05 12:08 | PN ---
PROGRESS NOTE Marcella is a 73-year-old lady that was admitted to hospital with non ST-segment elevation [place]. Underwent cardiac catheterization and angioplasty of LAD. She has a lesion in the diagonal branch which will be managed medically at this time. On exam, patient is comfortable at rest. Vital signs are stable. Blood pressure is elevated at 156/86. There is no jugular venous distention. Carotid upstroke is normal. Chest exam reveals good air entry bilaterally. Heart exam reveals first and second heart sounds. No gallop. Exam of extremities did not reveal any edema. Peripheral pulses are palpable. Patient is currently on metoprolol 25 b.i.d., losartan 100 daily, Lipitor, Norvasc 10 daily, and Brilinta 90 b.i.d. Given the poorly controlled blood pressures, I am going to increase her metoprolol to 50 b.i.d. ASSESSMENT: Acute non ST-segment elevation myocardial infarction. PLAN: Patient is doing well. She is stable for discharge. Follow up in our office. MMODL / IJN: [id number] /
[2019-01-05] MEDS ORDERED: INSULIN DETEMIR (LEVEMIR) 100 UNIT/ML SYR SQ SCH (21:00)
[2019-01-06 10:52] LABS: Hemoglobin A1C 8.9 % (4.0-6.0)
--- NOTE | 2019-01-09 07:36 | P.DS ---
Providers Date of admission: 01/02/19 08:55 Attending physician: Dale Harden Consults: 01/02/19 08:55 Consult Physician Urgent Consulting Provider: Benigno Bonilla Consult Reason/Comments: nstemi Do you want consulting provider notified?: Yes 01/02/19 11:09 Consult Physician Routine Consulting Provider: [facility] Consult Reason/Comments: Post Interventional patient Do you want consulting provider notified?: Already Contacted Primary care physician: Dale Harden Hospital Course: Diagnoses: Chest pain. Status post cardiac cath and stent placement in LAD Diabetes mellitus Hypertension , better controlled mild leukocytosis, mostly reactive. Resolved COPD with no acute exacerbation Hospital course: This is a pleasant 73 years old female with past medical history of COPD, diabetes mellitus, hypertension, GERD. She presents with chest pain. Patient has been evaluated by cardiology team. Patient underwent cardiac cath with stent placement in LAD. Patient's symptoms resolved with no more chest pain or dyspnea. No other complaint of abdominal pain. She is tolerating diet well. No change in urine or bowel habits. No fever. Blood pressure medications were adjusted including adding hydralazine, her blood pressure upon discharge improved to 156/86. Because patient got contrast within the cardiac cath as recommended to hold metformin for at least a week and follow-up with her PCP to check her kidney function before starting again. Patient informed about this and she agrees. Patient refused to take insulin at home. Also she was on sitagliptin/metformin 50-1000 mg. Going to increase the dose of her sitagliptin to 100 mg daily. Prescription is provided. Also patient was instructed to check her sugar 4 times daily before each meals and at bedtime, and it is a level more than 350 was then 70 to come to emergency room and call 911. She verbalized understanding and agreement. Also importance of compliance with medication is explained to the patient Patient has transient dizziness the last couple nights which is resolved now. Cardiology evaluated the patient and cleared the patient for discharge. I had a lengthy discussion with the patient and offered to keep her one more day for monitoring including monitoring her sugar, however patient declined stating that her is sick at home and she is worried about him. She told me since the director of gift planning cleared her for discharge shows wants to leave today and she'll follow-up as an outpatient. Problems and management plan were discussed with the patient and he verbalized understanding and acceptance Patient was found stable and can be discharged home however he needs follow-up as an outpatient She told me she will follow up with her PCP Dr. Harden and his this practical Radha whom she sees sooner than later within one week which is recommended for her. Also she was follow-up with cardiology in 1-2 weeks and with brand representative. Contact information for follow-up is provided for her. Appointment could not made for her today as it is holiday up . Gen: patient is a AAOx3, no distress CVS: S1-S2, RRR, no murmur Lungs: B/L CTA, no wheezing Abdomen: soft, no distention, no tenderness, positive bowel sounds Extremity: no leg edema or induration Time spent more than 35 minutes Patient Condition at Discharge: Critical Plan - Discharge Summary Discharge Rx Participant: No New Discharge Prescriptions: New hydrALAZINE HCL [Apresoline] 100 mg PO BID #120 tab Aspirin 81 mg PO DAILY #30 chew Losartan [Cozaar] 100 mg PO DAILY #60 tab sitaGLIPtin [Januvia] 100 mg PO DAILY #30 tab Atorvastatin [Lipitor] 80 mg PO HS #30 tab Metoprolol Tartrate [Lopressor] 50 mg PO BID #60 tab Nitroglycerin Sl Tabs [Nitrostat] 0.4 mg SUBLINGUAL Q5M PRN #20 tab PRN Reason: Chest Pain amLODIPine [Norvasc] 10 mg PO DAILY #30 tab Ticagrelor [Brilinta] 90 mg PO BID #60 tab Continue Omeprazole 20 mg PO QAM Discontinued sitaGLIPtin PHOS/metFORMIN HCL [Janumet 50-1,000 mg Tablet] 1 tab PO BID Multivit-Min/Iron/Folic/Lutein [Centrum Silver Women Tablet] 1 tab PO DAILY Cetirizine HCl [Zyrtec] 10 mg PO DAILY Losartan Potassium 100 mg PO BID Discharge Medication List Omeprazole 20 mg PO QAM 08/01/15 [History] Aspirin 81 mg PO DAILY #30 chew 01/05/19 [Rx] Atorvastatin [Lipitor] 80 mg PO HS #30 tab 01/05/19 [Rx] Losartan [Cozaar] 100 mg PO DAILY #60 tab 01/05/19 [Rx] Metoprolol Tartrate [Lopressor] 50 mg PO BID #60 tab 01/05/19 [Rx] Nitroglycerin Sl Tabs [Nitrostat] 0.4 mg SUBLINGUAL Q5M PRN #20 tab 01/05/19 [Rx] Ticagrelor [Brilinta] 90 mg PO BID #60 tab 01/05/19 [Rx] amLODIPine [Norvasc] 10 mg PO DAILY #30 tab 01/05/19 [Rx] hydrALAZINE HCL [Apresoline] 100 mg PO BID #120 tab 01/05/19 [Rx] sitaGLIPtin [Januvia] 100 mg PO DAILY #30 tab 01/05/19 [Rx] Follow up Appointment(s)/Referral(s): Arslan Gleason MD [STAFF PHYSICIAN] - 1 Week (Office closed - please call to make appointment) Rowdy Snider MD [REFERRING] - 1 Week (Office closed - please call to make appointment) Dale Harden MD [Primary Care Provider] - 1-2 days (Office closed - please call to make appointment) Patient Instructions/Handouts: Angina (DC), Heart Attack (DC) Activity/Diet/Wound Care/Special Instructions: Diabetic diet Activity is limited till you see your doctor we recommend to check blood sugar 4 times daily before each meals and at bedtime, and it is a level more than 350 or less then 70 then to come to emergency room and call 911. Discharge Disposition: HOME SELF-CARE
== END 2019-01-05 13:20 | disposition home or self-care (01) | DRG 247 ==
LOC: EC 07:19 → 3SCARD 08:55 → 2SICU 10:54 → 3SCARD 01-03 15:03
PROVIDERS: ADMIT Family Medicine; ATTEND Family Medicine
PROC: B2111ZZ Fluoroscopy of Multiple Coronary Arteries using Low Osmolar Contrast (ICD-10-PCS; 2019-01-02)
PROC: 027034Z Dilation of Coronary Artery, One Artery with Drug-eluting Intraluminal Device, Percutaneous Approach (ICD-10-PCS; principal; 2019-01-02 09:33)
PROC: 4A023N7 Measurement of Cardiac Sampling and Pressure, Left Heart, Percutaneous Approach (ICD-10-PCS; 2019-01-02 09:33)
DX: I21.09 ST elevation (STEMI) myocardial infarction involving other coronary artery of anterior wall (principal); D72.829 Elevated white blood cell count, unspecified; E11.9 Type 2 diabetes mellitus without complications; E78.00 Pure hypercholesterolemia, unspecified; I10 Essential (primary) hypertension; I25.10 Atherosclerotic heart disease of native coronary artery without angina pectoris; J44.9 Chronic obstructive pulmonary disease, unspecified; K21.9 Gastro-esophageal reflux disease without esophagitis; Z79.84 Long term (current) use of oral hypoglycemic drugs; Z82.49 Family history of ischemic heart disease and other diseases of the circulatory system; Z83.3 Family history of diabetes mellitus; Z98.42 Cataract extraction status, left eye; Z98.41 Cataract extraction status, right eye; Z96.1 Presence of intraocular lens; Z86.010 Personal history of colon polyps; Z83.2 Family history of diseases of the blood and blood-forming organs and certain disorders involving the immune mechanism; Z79.899 Other long term (current) drug therapy
CPT/HCPCS: 36415; 71046; 74018; 80048; 80053; 83036; 83690; 83735; 84484; 85025; 85610; 85730; 93005; 93306; 93458; 96365; 96376; 99285; C1874

== ENCOUNTER 2019-01-11 08:33 | Observation (INO) | payer MEDICARE ==
[2019-01-11] MEDS ORDERED: ASPIRIN 81 MG PO STA (08:38)
[2019-01-11] MEDS ORDERED: NITROGLYCERIN OINT 1 INCH/GM PACKET TOPICAL STA (08:38)
[2019-01-11] MEDS ORDERED: LORazepam 2 MG/ML INJ IV STA ×2 (08:39→09:54)
--- NOTE | 2019-01-11 08:41 | ED ---
General Adult HPI - General Stated complaint: Chest pain Time Seen by Provider: 01/11/19 08:33 Source: RN notes reviewed - History of Present Illness Initial comments: This is a 74-year-old female presents emergency department stating that a week and half ago she had a heart attack and has stent placed. Patient states she has diabetes hypertension high cholesterol as well. Patient comes in today stating she was having difficulty breathing and some chest tightness and she was worried she was having another heart attack. Patient states this could very well be most anxiety because her is in the hospital currently and she is living alone. Patient states she still has shortness of breath and some chest tightness at this time. Patient denies any radiation of the discomfort. Patient denies any diaphoresis. Patient denies any nausea. Patient denies abdominal pain patient denies any vomiting or diarrhea recently. Patient denies any recent fever chills or cough. Patient denies being lightheaded dizzy or hav ing any near syncopal episode. Patient denies headache patient denies any numbness weakness. Patient denies any leg swelling or calf tenderness. - Related Data Home Medications Medication Instructions Recorded Confirmed Omeprazole 20 mg PO QAM 08/01/15 01/11/19 Previous Rx's Medication Instructions Recorded Aspirin 81 mg PO DAILY #30 chew 01/05/19 Atorvastatin [Lipitor] 80 mg PO HS #30 tab 01/05/19 Losartan [Cozaar] 100 mg PO DAILY #60 tab 01/05/19 Metoprolol Tartrate [Lopressor] 50 mg PO BID #60 tab 01/05/19 Nitroglycerin Sl Tabs [Nitrostat] 0.4 mg SUBLINGUAL Q5M PRN #20 tab 01/05/19 Ticagrelor [Brilinta] 90 mg PO BID #60 tab 01/05/19 amLODIPine [Norvasc] 10 mg PO DAILY #30 tab 01/05/19 hydrALAZINE HCL [Apresoline] 100 mg PO BID #120 tab 01/05/19 sitaGLIPtin [Januvia] 100 mg PO DAILY #30 tab 01/05/19 Allergies Allergy/AdvReac Type Severity Reaction Status Date / Time codeine AdvReac Vomiting Verified 01/11/19 09:15 metoclopramide HCl AdvReac Hallucinati Verified 01/11/19 09:15 [From Reglan] ons morphine AdvReac Vomiting Verified 01/11/19 09:15 Review of Systems ROS Statement: Those systems with pertinent positive or pertinent negative responses have been documented in the HPI. ROS Other: All systems not noted in ROS Statement are negative. Past Medical History Past Medical History: COPD, Diabetes Mellitus, GERD/Reflux, Hypertension Additional Past Medical History / Comment(s): NIDDM type II, borderline high cholesterol, recently "pulled" R upper arm muscle, diarrhea on and off d/t metformin per pt, R leg varicosity, seasonal sinus problems. History of Any Multi-Drug Resistant Organisms: None Reported Past Surgical History: Tonsillectomy, Tubal Ligation Additional Past Surgical History / Comment(s): D & C, colonoscopy with cecal polypectomy, bilateral cataract removals/lens implants. Past Anesthesia/Blood Transfusion Reactions: Postoperative Nausea & Vomiting (PONV) Smoking Status: Never smoker - Past Family History Mother Family Medical History: CVA/TIA, Diabetes Mellitus, Deep Vein Thrombosis (DVT) Additional Family Medical History / Comment(s): "blood clots in her legs when she was in her 40's from taking control". TIAs Father Family Medical History: Cancer, Congestive Heart Failure (CHF), Coronary Artery Disease (CAD), Diabetes Mellitus, Myocardial Infarction (NH) Additional Family Medical History / Comment(s): Father had a NH at the age of 54yrs. CA: skin ("tip top of his ear"). He of CHF at the age of 84 yrs. General Exam - General Exam Comments Initial Comments: GENERAL: Patient is well-developed and well-nourished. Patient is nontoxic and well- hydrated and is in mild distress. ENT: Neck is soft and supple. No significant lymphadenopathy is noted. Oropharynx is clear. Moist mucous membranes. Neck has full range of motion without eliciting any pain. EYES: The sclera were anicteric and conjunctiva were pink and moist. Extraocular movements were intact and pupils were equal round and reactive to light. Eyelids were unremarkable. PULMONARY: Unlabored respirations. Good breath sounds bilaterally. No audible rales r honchi or wheezing was noted. CARDIOVASCULAR: There is a regular rate and rhythm without any murmurs gallops or rubs. ABDOMEN: Soft and nontender with normal bowel sounds. No palpable organomegaly was noted. There is no palpable pulsatile mass. SKIN: Skin is clear with no lesions or rashes and otherwise unremarkable. NEUROLOGIC: Patient is alert and oriented x3. Cranial nerves II through XII are grossly intact. Motor and sensory are also intact. Normal speech, volume and content. Symmetrical smile. MUSCULOSKELETAL: Normal extremities with adequate strength and full range of motion. LYMPHATICS: No significant lymphadenopathy is noted PSYCHIATRIC: Mild anxiety Course Vital Signs 01/11/19 08:35 Temperature 98.2 F Pulse Rate 60 Respiratory 18 Rate Blood Pressure 156/82 O2 Sat by Pulse 97 Oximetry Medical Decision Making - Medical Decision Making EKG shows sinus bradycardia 57 bpm ND interval 160 QRS is 94 Q-T intervals 516 QTC is 502. Patient's EKG shows T-wave inversions in leads 1 and 2 and aVL as well as precordial leads V2 through V6. I compared this to an old EKG there are no acute abnormalities noted. Patient's chest x-ray shows no acute abnormality. Patient received nitro paste aspirin and Ativan in the emergency department she was feeling considerably better. Patient's troponin came back normal. I spoke Dr. Griffith he agreed to admit the patient admitted the patient I wrote admitting orders. I consult cardiology. - Lab Data Result diagrams: 01/11/19 08:50 01/11/19 08:50 Lab Results 01/11/19 01/11/19 01/11/19 Range/Units 08:50 08:50 08:50 WBC 10.3 (3.8-10.6) k/uL RBC 4.54 (3.80-5.40) m/uL Hgb 12.4 (11.4-16.0) gm/dL Hct 37.0 (34.0-46.0) % MCV 81.6 (80.0-100.0) fL MCH 27.3 (25.0-35.0) pg MCHC 33.5 (31.0-37.0) g/dL RDW 15.5 (11.5-15.5) % Plt Count 268 (150-450) k/uL Neutrophils % 68 % Lymphocytes % 21 % Monocytes % 5 % Eosinophils % 3 % Basophils % 1 % Neutrophils # 7.0 (1.3-7.7) k/uL Lymphocytes # 2.2 (1.0-4.8) k/uL Monocytes # 0.5 (0-1.0) k/uL Eosinophils # 0.3 (0-0.7) k/uL Basophils # 0.1 (0-0.2) k/uL PT 10.1 (9.0-12.0) sec INR 0.9 (<1.2) APTT 23.6 (22.0-30.0) sec Sodium 140 (137-145) mmol/L Potassium 5.0 (3.5-5.1) mmol/L Chloride 109 H (98-107) mmol/L Carbon Dioxide 18 L (22-30) mmol/L Anion Gap 13 mmol/L BUN 22 H (7-17) mg/dL Creatinine 0.92 (0.52-1.04) mg/dL Est GFR (CKD-EPI)AfAm 72 (>60 ml/min/1.73 sqM) Est GFR (CKD-EPI)NonAf 63 (>60 ml/min/1.73 sqM) Glucose 315 H (74-99) mg/dL Calcium 10.1 (8.4-10.2) mg/dL Magnesium 1.9 (1.6-2.3) mg/dL Total Bilirubin 0.9 (0.2-1.3) mg/dL AST 34 (14-36) U/L ALT 27 (9-52) U/L Alkaline Phosphatase 131 H (38-126) U/L Troponin I (0.000-0.034) ng/mL Total Protein 8.1 (6.3-8.2) g/dL Albumin 4.5 (3.5-5.0) g/dL 01/11/19 Range/Units 08:50 WBC (3.8-10.6) k/uL RBC (3.80-5.40) m/uL Hgb (11.4-16.0) gm/dL Hct (34.0-46.0) % MCV (80.0-100.0) fL MCH (25.0-35.0) pg MCHC (31.0-37.0) g/dL RDW (11.5-15.5) % Plt Count (150-450) k/uL Neutrophils % % Lymphocytes % % Monocytes % % Eosinophils % % Basophils % % Neutrophils # (1.3-7.7) k/uL Lymphocytes # (1.0-4.8) k/uL Monocytes # (0-1.0) k/uL Eosinophils # (0-0.7) k/uL Basophils # (0-0.2) k/uL PT (9.0-12.0) sec INR (<1.2) APTT (22.0-30.0) sec Sodium (137-145) mmol/L Potassium (3.5-5.1) mmol/L Chloride (98-107) mmol/L Carbon Dioxide (22-30) mmol/L Anion Gap mmol/L BUN (7-17) mg/dL Creatinine (0.52-1.04) mg/dL Est GFR (CKD-EPI)AfAm (>60 ml/min/1.73 sqM) Est GFR (CKD-EPI)NonAf (>60 ml/min/1.73 sqM) Glucose (74-99) mg/dL Calcium (8.4-10.2) mg/dL Magnesium (1.6-2.3) mg/dL Total Bilirubin (0.2-1.3) mg/dL AST (14-36) U/L ALT (9-52) U/L Alkaline Phosphatase (38-126) U/L Troponin I <0.012 (0.000-0.034) ng/mL Total Protein (6.3-8.2) g/dL Albumin (3.5-5.0) g/dL Disposition Clinical Impression: Chest pain, Anxiety Disposition: ADMITTED IP TO THIS HOSP Referrals: Dale Harden MD [Primary Care Provider] - 1-2 days Time of Disposition: 09:44
[2019-01-11 09:09] LABS: Basophils # (A) 0.1 k/uL (0-0.2); Basophils % (A) 1 %; Eosinophils # (A) 0.3 k/uL (0-0.7); Eosinophils % (A) 3 %; HGB 12.4 gm/dL (11.4-16.0); Lymphocytes # (A) 2.2 k/uL (1.0-4.8); Lymphocytes % (A) 21 %; MCH 27.3 pg (25.0-35.0); MCHC 33.5 g/dL (31.0-37.0); MCV 81.6 fL (80.0-100.0); Mean Platelet Volume 9.9; Monocytes # (A) 0.5 k/uL (0-1.0); Monocytes % (A) 5 %; Neutrophils % (A) 68 %; Platelet Count 268 k/uL (150-450); RBC 4.54 m/uL (3.80-5.40); RDW 15.5 % (11.5-15.5); WBC 10.3 k/uL (3.8-10.6)
--- NOTE | 2019-01-11 09:15 | XR ---
EXAMINATION TYPE: XR chest 2V DATE OF EXAM: 01/11/2019 COMPARISON: 01/02/2019 HISTORY: Chest tightness and shortness of breath. Recent cardiac stent placement. TECHNIQUE: Frontal and lateral views of the chest are obtained. FINDINGS: There is no focal air space opacity, pleural effusion, or pneumothorax seen. Slight right hemidiaphragm eventration is noted. The cardiac silhouette size is mildly enlarged, overall similar to the prior of 01/02/2019. The osseous structures are intact. Moderate multilevel degenerative basilio ges of the spine are noted. IMPRESSION: Mildly enlarged cardiomediastinal silhouette. Otherwise no acute cardiopulmonary process .
[2019-01-11 09:16] LABS: Albumin 4.5 g/dL (3.5-5.0); Calcium 10.1 mg/dL (8.4-10.2); Magnesium 1.9 mg/dL (1.6-2.3); Total Bilirubin 0.9 mg/dL (0.2-1.3); Total Protein 8.1 g/dL (6.3-8.2)
[2019-01-11 09:27] LABS: INR 0.9 (<1.2); Partial Thromboplastin Time 23.6 sec (22.0-30.0); Prothrombin Time 10.1 sec (9.0-12.0)
[2019-01-11] MEDS ORDERED: NITROGLYCERIN SL TABS 0.4 MG TAB SUBLINGUAL PRN (09:48)
[2019-01-11 11:37] LABS: Glucose,Whole Blood 296 mg/dL (75-99)
[2019-01-11] MEDS: INSULIN ASPART (NovoLOG) 100 UNIT/ML VIAL SQ SCH ×3 (12:07→21:14)
--- NOTE | 2019-01-11 15:14 | CONS ---
CONSULTATION This is a 74-year-old lady who was recently in the hospital with an acute anterior non ST elevation LA and underwent stenting of LAD performed by Dr. Reyes. She went home and her has amyotrophic lateral sclerosis and he was hospitalized. She was alone at home. She felt very anxious and came into the hospital with episode of chest pain. She insists that her pain was related to anxiety. The pain has resolved completely. She is resting comfortably without symptoms, but there is a certain amount of anxiety involved. Her initial troponin is normal. EKG revealed sinus mechanism with ST changes suggestive of evolving anterior LA changes. Her is still in the hospital. PAST MEDICAL HISTORY: 1. Recent anterior non ST elevation LA and stenting of LAD. 2. Type 2 diabetes. 3. Hypertension. 4. Hyperlipidemia. 5. The patient is status post tubal ligation and tonsillectomy. ALLERGIES: SHE IS ALLERGIC TO CODEINE AND REGLAN AND MORPHINE. MEDICATIONS: Include atorvastatin 80 mg daily, losartan 100 mg daily, Lopressor 50 mg b.i.d., sublingual nitroglycerin p.r.n., Brilinta 90 mg b.i.d., Norvasc 10 mg daily, hydralazine 100 mg b.i.d., Januvia 100 mg daily. She takes aspirin 81 mg daily. PHYSICAL EXAMINATION: On examination, blood pressure is 127/70, pulse rate is 60 per minute and regular. HEENT unremarkable. Fundus was not examined by me. Neck is supple. No JVD. I do not hear a carotid bruit. There is no thyromegaly. Heart exam reveals S1, S2 heard normally. No rub, murmur or gallop. Lungs are clear. Abdomen is soft, nontender. Lower extremities reveal normal pulses. No edema. Central nervous system is normal. EKG revealed sinus mechanism with ST abnormality and deep T-wave inversion in precordial leads suggestive of evolving anterior LA changes. IMPRESSION: 1. Atypical chest pain in a patient with recent non ST elevation myocardial infarction. 2. Hypertension. 3. Hyperlipidemia. 4. Type 2 diabetes mellitus. 5. History of anxiety disorder. RECOMMENDATIONS: I am recommending that we will continue to watch her closely. Place her on subcu heparin. Resume her home medications. We will do serial troponins and if these are normal she can be discharged. Based on my clinical evaluation, her presentation does not suggest acute ischemic syndrome and I explained this to the patient. We will observe her till tomorrow and then make a definitive decision. I will review her angiograms if possible today. Thank you very much for the consult. RITU / STEPHANIA: [id number] /
--- NOTE | 2019-01-11 15:38 | HP ---
HISTORY AND PHYSICAL DATE OF SERVICE: 01/11/2019 CHIEF COMPLAINT: Chest pain. I am covering for Dr. Harden. HISTORY OF PRESENT ILLNESS: This 74-year-old woman with a past medical history of COPD, diabetes, GERD, hypertension, history of high cholesterol, history of tonsillectomy, being followed by Dr. Harden in the outpatient setting, recently had a heart attack. The patient underwent cardiac cath and has a stent in the LAD. Currently the patient is complaining of chest pain and some chest tightness and shortness of breath and the patient was worried that the patient was having another heart attack. The patient came to [facility] and admitted to the hospital for further evaluation and treatment. There is no history of fever, rigors or chills. No history of headache, loss of consciousness, seizures. The troponins are negative. The initial EKG showed diffuse ST-T changes, not much different on the previous EKGs. There is no history of fever, rigors or chills. No history of headache, loss of consciousness or seizures. The pain is reported as mild to moderate in intensity, not associated with sweating or palpitations. PAST MEDICAL HISTORY: History of COPD, history of recent CAD stenting, history of diabetes, GERD, hypertension. MEDICATIONS: Prior to admission include home medications are: 1. Janumet mg 50 mg p.o. b.i.d. 2. Apresoline 100 mg p.o. b.i.d. 3. Norvasc 10 mg p.o. daily. 4. Brilinta 90 mg p.o. b.i.d. 5. Omeprazole 20 mg q.a.m. 6. Nitrostat 0.4 mg sublingual p.r.n. 7. Lopressor 50 mg p.o. b.i.d. 8. Cozaar 100 mg. 9. Lipitor 80 mg q.h.s. 10.Aspirin 81 mg daily. ALLERGIES: CODEINE, REGLAN, MORPHINE. FAMILY HISTORY: History of CVA, TIA, diabetes, DVT, blood clots. SOCIAL HISTORY: No history of smoking. No history of alcohol. REVIEW OF SYSTEMS: ENT: No diminished vision. No diminished hearing. CARDIOVASCULAR system as mentioned earlier. RESPIRATORY: As mentioned earlier. GI no nausea or vomiting. : No dysuria. CENTRAL NERVOUS SYSTEM: No numbness or weakness. ALLERGY/IMMUNOLOGY: No asthma or hayfever. MUSCULOSKELETAL as mentioned earlier. HEMATOLOGY/ONCOLOGY: No anemia. ENDOCRINE: No history of diabetes or hypothyroidism. CONSTITUTIONAL: As mentioned earlier. DERMATOLOGY: Negative. RHEUMATOLOGY negative. PSYCHIATRY as mentioned earlier. PHYSICAL EXAM: Patient is alert, oriented x3. The pulse is 53, blood pressure 111/72, respirations 16, temperature 97.6, pulse ox 100 percent on 2 L. HEENT: Conjunctivae normal. Oral mucosa moist. NECK is no jugular venous distention. No carotid bruit. No lymph node enlargement. Cardiovascular S1, S2 muffled. No S3, no S4. RESPIRATORY: Breath sounds diminished in the bases. No rhonchi. No crackles. ABDOMEN: Soft, nontender. No mass palpable. LEGS: No edema. No swelling. NERVOUS SYSTEM: Higher functions as mentioned. Moves all four limbs. No focal deficits. LYMPHATICS: No lymph nodes palpable in the neck, axillae or groin. SKIN: No ulcers, no rashes and no bleeding. JOINTS: No active deforming arthropathy. LABS: At this time shows CBC within normal limits and BUN is 22, glucose 359 and 296. ASSESSMENT: 1. Chest pain possible unstable angina. 2. History of recent cardiac arrest, LAD stent. 3. Diabetes type 2 with hyperglycemia. 4. History of chronic obstructive pulmonary disease. 5. Gastroesophageal reflux disease. 6. Hypertension. 7. History of pulled right upper arm muscle recently. 8. History of postop nausea, vomiting. RECOMMENDATIONS AND DISCUSSION: This 74-year-old woman who presented with multiple complex medical issues, at this time, I recommend to continue current medications, continue with symptomatic treatment. Resume the home medications. Cardiology consult to rule out myocardial infarction. Prognosis guarded because of multiple complex medical issues. A copy of dictation being forwarded to Dr. Harden who is the primary physician. Dr. Harden will follow tomorrow. MMODL / IJN: [id number] /
[2019-01-11 16:43] LABS: Glucose,Whole Blood 323 mg/dL (75-99)
[2019-01-11] MEDS: NITROGLYCERIN OINT 1 INCH/GM PACKET TOPICAL SCH ×2 (16:57→20:33)
[2019-01-11] MEDS: metFORMIN 500 MG TAB PO SCH (17:00)
[2019-01-11 19:54] LABS: Glucose,Whole Blood 212 mg/dL (75-99)
[2019-01-11] MEDS ORDERED: ATORVASTATIN 80 MG TAB PO SCH (21:00)
[2019-01-11] MEDS: METOPROLOL TARTRATE 50 MG TAB PO SCH (21:14)
[2019-01-11] MEDS: TICAGRELOR 90 MG TAB PO SCH (21:14)
[2019-01-11] MEDS: hydrALAZINE HCL 50 MG TAB PO SCH (21:14)
[2019-01-11] MEDS: HEPARIN SODIUM,PORCINE 5,000 UNIT/ML 1 ML VIAL SQ SCH ×2 (21:14→21:21)
[2019-01-12] MEDS: NITROGLYCERIN OINT 1 INCH/GM PACKET TOPICAL SCH ×3 (00:36→12:03)
[2019-01-12 02:05] LABS: Cholesterol 127 mg/dL (<200); HDL Cholesterol 46 mg/dL (40-60); LDL Cholesterol,Calculated 46 mg/dL (0-99); Triglycerides 174 mg/dL (<150)
[2019-01-12 06:59] LABS: Glucose,Whole Blood 239 mg/dL (75-99)
[2019-01-12 07:27] VITALS: BP 138/79; PULSE 64; RESP 17; TEMP 98.2
[2019-01-12] MEDS ORDERED: PANTOPRAZOLE 40 MG TABLET PO SCH (07:30)
--- NOTE | 2019-01-12 08:25 | P.DS ---
Providers Date of admission: 01/11/19 09:48 Attending physician: Dale Harden Consults: 01/11/19 09:48 Consult Physician Urgent Consulting Provider: [facility] Consult Reason/Comments: Chest pain Do you want consulting provider notified?: Yes Primary care physician: Dale Harden Hospital Course: This is a discharge summary 74-year-old white female essentially meant for chest pain. History of coronary artery stent in the past. Once cleared by cardiology the patient will be discharged in stable condition. No enzymatic elevation was done. Question element of anxiety. Plan - Discharge Summary Discharge Rx Participant: No New Discharge Prescriptions: Continue Omeprazole 20 mg PO QAM hydrALAZINE HCL [Apresoline] 100 mg PO BID #120 tab Aspirin 81 mg PO DAILY #30 chew Losartan [Cozaar] 100 mg PO DAILY #60 tab Atorvastatin [Lipitor] 80 mg PO HS #30 tab Metoprolol Tartrate [Lopressor] 50 mg PO BID #60 tab Nitroglycerin Sl Tabs [Nitrostat] 0.4 mg SUBLINGUAL Q5M PRN #20 tab PRN Reason: Chest Pain amLODIPine [Norvasc] 10 mg PO DAILY #30 tab Ticagrelor [Brilinta] 90 mg PO BID #60 tab sitaGLIPtin PHOS/metFORMIN HCL [Janumet 50-1,000 mg Tablet] 50 mg PO BID Discharge Medication List Omeprazole 20 mg PO QAM 08/01/15 [History] Aspirin 81 mg PO DAILY #30 chew 01/05/19 [Rx] Atorvastatin [Lipitor] 80 mg PO HS #30 tab 01/05/19 [Rx] Losartan [Cozaar] 100 mg PO DAILY #60 tab 01/05/19 [Rx] Metoprolol Tartrate [Lopressor] 50 mg PO BID #60 tab 01/05/19 [Rx] Nitroglycerin Sl Tabs [Nitrostat] 0.4 mg SUBLINGUAL Q5M PRN #20 tab 01/05/19 [Rx] Ticagrelor [Brilinta] 90 mg PO BID #60 tab 01/05/19 [Rx] amLODIPine [Norvasc] 10 mg PO DAILY #30 tab 01/05/19 [Rx] hydrALAZINE HCL [Apresoline] 100 mg PO BID #120 tab 01/05/19 [Rx] sitaGLIPtin PHOS/metFORMIN HCL [Janumet 50-1,000 mg Tablet] 50 mg PO BID 01/11/19 [History] Follow up Appointment(s)/Referral(s): Dale Harden MD [Primary Care Provider] - 1-2 days ( or Saturday ) Discharge Disposition: HOME SELF-CARE
[2019-01-12] MEDS ORDERED: ASPIRIN 81 MG PO SCH (09:00)
[2019-01-12] MEDS ORDERED: amLODIPine 10 MG TAB PO SCH (09:00)
[2019-01-12] MEDS ORDERED: LOSARTAN 50 MG TAB PO SCH (09:00)
[2019-01-12] MEDS ORDERED: ASPIRIN 325 MG TAB PO SCH (09:00)
[2019-01-12] MEDS ORDERED: LINAGLIPTIN 5 MG TABLET PO SCH (09:00)
[2019-01-12] MEDS: INSULIN ASPART (NovoLOG) 100 UNIT/ML VIAL SQ SCH (09:42)
[2019-01-12] MEDS: metFORMIN 500 MG TAB PO SCH (09:44)
[2019-01-12] MEDS: HEPARIN SODIUM,PORCINE 5,000 UNIT/ML 1 ML VIAL SQ SCH (09:44)
[2019-01-12] MEDS: hydrALAZINE HCL 50 MG TAB PO SCH (09:45)
[2019-01-12] MEDS: METOPROLOL TARTRATE 50 MG TAB PO SCH (09:45)
[2019-01-12] MEDS: TICAGRELOR 90 MG TAB PO SCH (09:45)
[2019-01-12 12:54] LABS: Hemoglobin A1C 9.1 % (4.0-6.0)
== END 2019-01-12 12:12 | disposition home or self-care (01) ==
LOC: EC 08:33 → 1SOBS 09:48
PROVIDERS: ADMIT Family Medicine; ATTEND Family Medicine
DX: R07.89 Other chest pain (principal); Z95.5 Presence of coronary angioplasty implant and graft; J44.9 Chronic obstructive pulmonary disease, unspecified; E11.9 Type 2 diabetes mellitus without complications; K21.9 Gastro-esophageal reflux disease without esophagitis; I10 Essential (primary) hypertension; I25.2 Old myocardial infarction; R06.02 Shortness of breath; E11.65 Type 2 diabetes mellitus with hyperglycemia; M79.621 Pain in right upper arm; E78.00 Pure hypercholesterolemia, unspecified; E78.5 Hyperlipidemia, unspecified; I21.4 Non-ST elevation (NSTEMI) myocardial infarction; I25.10 Atherosclerotic heart disease of native coronary artery without angina pectoris; F41.9 Anxiety disorder, unspecified; Z86.74 Personal history of sudden cardiac arrest; Z79.02 Long term (current) use of antithrombotics/antiplatelets; Z79.84 Long term (current) use of oral hypoglycemic drugs; Z79.899 Other long term (current) drug therapy; Z79.82 Long term (current) use of aspirin; Z88.8 Allergy status to other drugs, medicaments and biological substances; Z88.5 Allergy status to narcotic agent; Z82.3 Family history of stroke; Z83.3 Family history of diabetes mellitus; Z83.2 Family history of diseases of the blood and blood-forming organs and certain disorders involving the immune mechanism; Z80.8 Family history of malignant neoplasm of other organs or systems; Z82.49 Family history of ischemic heart disease and other diseases of the circulatory system
CPT/HCPCS: 96376; 96374; 99285; 36415; 93005; 80061; 80053; 83735; 84484; 85025; 85610; 85730; 83036; 71046; G0378 ×2; J2060

== ENCOUNTER 2019-12-21 06:12 | Day surgery (SDC) | payer MEDICARE ==
[2019-12-15 10:44] VITALS: BMI 32.9
[~2019-12-21 06:12] MED LIST: ALPRAZolam 0.25 MG TAB PO PRN; ALPRAZolam 0.5 MG TAB PO PRN; ASPIRIN 325 MG TAB PO STA; ATORVASTATIN 80 MG TAB PO STA; NITROGLYCERIN SL TABS 0.4 MG TAB SUBLINGUAL PRN; SODIUM CHLORIDE 0.9% 1,000 ML in EMPTY BAG 1 BAG IV ONE
[2019-12-21] MEDS ORDERED: ASPIRIN 81 MG ONE (06:39)
[2019-12-21 06:46] LABS: Glucose,Whole Blood 161 mg/dL (75-99)
[2019-12-21 07:03] LABS: Basophils # (A) 0.1 k/uL (0-0.2); Basophils % (A) 1 %; Eosinophils # (A) 0.3 k/uL (0-0.7); Eosinophils % (A) 4 %; HCT 35.3 % (34.0-46.0); HGB 11.1 gm/dL (11.4-16.0); Lymphocytes # (A) 2.1 k/uL (1.0-4.8); Lymphocytes % (A) 24 %; MCH 26.5 pg (25.0-35.0); MCHC 31.4 g/dL (31.0-37.0); MCV 84.3 fL (80.0-100.0); Mean Platelet Volume 9.5; Monocytes # (A) 0.7 k/uL (0-1.0); Monocytes % (A) 7 %; Neutrophils # (A) 5.5 k/uL (1.3-7.7); Neutrophils % (A) 61 %; Platelet Count 189 k/uL (150-450); RBC 4.19 m/uL (3.80-5.40); RDW 15.1 % (11.5-15.5)
[2019-12-21] MEDS ORDERED: LIDOCAINE 1% INJ 10MG/ML (20 ML MDV) SQ ONE (08:08)
[2019-12-21] MEDS ORDERED: MIDAZOLAM 2 MG/2 ML VIAL IVP ONE (08:09)
[2019-12-21] MEDS ORDERED: fentaNYL (PF) 50 MCG/ML 2 ML AMP IVP ONE (08:09)
[2019-12-21] MEDS ORDERED: BIVALIRUDIN BOLUS 250 MG/50 ML IV ONE (08:29)
[2019-12-21] MEDS ORDERED: BIVALIRUDIN 250 MG in SODIUM CHLORIDE 0.9% 38 ML IV ONE (08:30)
[2019-12-21] MEDS ORDERED: IOPAMIDOL-370 125ML BTL INJ ONE (08:33)
[2019-12-21] MEDS ORDERED: NITROGLYCERIN 1000MCG/10ML SYRINGE INTRACORON ONE (08:50)
[2019-12-21] MEDS ORDERED: IOPAMIDOL-370 100ML BTL INJ ONE (08:58)
[2019-12-21] MEDS ORDERED: NITROGLYCERIN SL TABS 0.4 MG TAB SUBLINGUAL PRN ×2 (09:14→09:16)
[2019-12-21] MEDS ORDERED: MAG HYDROX/AL HYDROX/SIMETH 30 ML CUP PO PRN (09:14)
[2019-12-21] MEDS ORDERED: ATROPINE SULFATE 0.1 MG/ML 10ML SYRINGE IV PRN (09:14)
[2019-12-21] MEDS ORDERED: ZOLPIDEM 5 MG TAB PO PRN (09:14)
[2019-12-21] MEDS ORDERED: RX INFO: IV CONTRAST WAS GIVEN 1 EACH MISC MISCELLANE PRN (09:14)
[2019-12-21] MEDS ORDERED: SODIUM CHLORIDE 0.9% 1,000 ML IV SCH (09:15)
--- NOTE | 2019-12-21 09:46 | CC ---
CARDIAC CATHETERIZATION REPORT Mrs Jones is a 74-year-old female with known history of hypertension, hyperlipidemia, history of diabetes mellitus as well history of coronary artery disease with stenting of the LAD in December 2018 who presented with symptoms of chest discomfort and abnormal myocardial perfusion imaging, consistent with stress-induced ischemia in the diagonal branch territory. In view of that, recommendation made regarding cardiac catheterization. The procedures, risks, and complication were discussed with the patient who is in full understanding and agreement. PROCEDURE: Patient was brought to lab associate in a fasting state after receiving fentanyl and Benadryl and achieving moderate conscious sedated state. Using Xylocaine anesthesia and Seldinger technique, a 6-[place]orese sheath was introduced in the right femoral artery. Selective right and left coronary angiography performed 6-[place]orese 4 bend right and left Gurwinder catheter. Multiple views of the coronary artery including hemiaxial views obtained. Following that, catheter removed images were reviewed. FINDING: Left main: This is a large-sized vessel bifurcating in left circumflex, left anterior descending artery. Left main coronary artery has no evidence of high-grade stenosis. Left anterior descending artery: This is a large-sized vessel that tapers down distal third. The stented segment is patent, has mild intimal disease distal to it of 20%-30% without any evidence of high-grade stenosis. It gives rise to a large diagonal branch in the proximal segment. The mid segment of the diagonal branch has a critical stenosis of 99%. The vessel is quite tortuous. Left circumflex: This is a nondominant size vessel, moderate in caliber, giving rise to 2 obtuse marginal branch, tortuous. The proximal left circumflex has 20% to 30% without any evidence of high-grade stenosis. Right coronary artery: This is a large dominant vessel bifurcating distally in the PDA and posterolateral segment branches. The right coronary artery as well as its branches have no evidence of obstructive coronary artery disease. LEFT VENTRICULOGRAM: Not performed. CONCLUSION: 1. Patent stented segment to the left anterior descending. 2. Critical stenosis in the first diagonal branch. 3. Mild disease in the left circumflex. RECOMMENDATION: In view of finding anatomy, I recommend proceeding with angioplasty and stenting of the diagonal branch. The procedures, risks and complication were discussed with the patient who is in full understanding and agreement. MMODL / IJN: [id number] /
--- NOTE | 2019-12-21 09:49 | PTCA ---
PERCUTANEOUSTRANS CORORONARY ANGIOGRAPHY Mrs. Jones is a 74-year-old female with known history of hypertension, hyperlipidemia, diabetes mellitus, and history of coronary artery disease who presented with symptoms of chest discomfort and abnormal myocardial perfusion imaging. She underwent cardiac catheterization was found to have critical stenosis involving the first diagonal branch. In view of that, recommendation regarding angioplasty and stenting, the procedures, risks, and complication were discussed with the patient who is in full understanding and agreement. PROCEDURE: A 6-Amharic FR4 guiding catheter was introduced into the system. After stenting the left main, a 0.014 balanced medium weight J-wire was advanced into the diagonal branch, but could not cross the lesion. That wire was left in the same place and a 0.014 Whisper J- wire with a SuperCross was used to cross the lesion and the wire was exchanged with SuperCross to a 0.014 balanced medium weight J-wire. Subsequently, a 2.5 x 12 mm Trek balloon was advanced and inflation at 10 atmospheres were unsuccessful in opening the lesion. That balloon was removed and a 2.25 x 12 mm NC Trek balloon was advanced and the lesion opened up at 16 atmospheres. Following that, the balloon was removed and a 2.5 x 12 mm Xience stent was advanced, deployed and post dilated to 16 atmospheres after the last inflation. After appropriate wait, the balloon and the guidewire were withdrawn back in the guiding catheter. Images were obtained and repeated and those images reveal stable successful stenting. At that point, the guiding catheter, the balloon and the guidewire were removed. The sheath was removed. Hemostasis was obtained with deployment of Angio-Seal. There was no immediate complication. Patient was returned to her room in stable condition. Of note, the patient had mild EKG changes that resolved at the end of the procedure. She had no chest discomfort. She received Angiomax per protocol as well as continuing on clopidogrel. RESULTS: Successful stenting of the mid diagonal branch with reduction of stenosis from 99% to 0%. RECOMMENDATION: Patient will be continued on aspirin, Plavix, beta ramos, and angiotensin receptor ramos. The importance of dual antiplatelet treatment were discussed with the patient and her family and they are in full understanding and agreement. DURATION OF SEDATION: 43 minutes. MMODL / IJN: [id number] /
--- NOTE | 2019-12-21 09:55 | LTR ---
DATE OF SERVICE: 12/21/2019 RE: Marcella Jones. Dear Dr. Harden: I had the pleasure to perform cardiac catheterization and coronary angioplasty and stenting on Mrs. Jones at [facility] on 12/21/2019. A full copy of the procedure note will be forwarded to you. In brief, she underwent successful stenting of her 1st diagonal branch. The LAD stent that was placed last year is patent with no evidence of a significant in-stent restenosis. I am hopeful that this procedure will stabilize her status. Thank you again for allowing me to participate in this patient's care. Please feel free to call for any questions. Sincerely yours, Leda Reyes M.D. RITU / STEPHANIA: [id number] /
[2019-12-21] MEDS: METOPROLOL TARTRATE 50 MG TAB PO SCH ×2 (11:09→20:08)
[2019-12-21 11:30] LABS: Glucose,Whole Blood 223 mg/dL (75-99)
[2019-12-21] MEDS: INSULIN ASPART (NovoLOG) 100 UNIT/ML VIAL SQ SCH ×3 (12:42→20:08)
[2019-12-21 16:47] LABS: Glucose,Whole Blood 206 mg/dL (75-99)
[2019-12-21 19:14] VITALS: RESP 18
[2019-12-21 19:55] LABS: Glucose,Whole Blood 203 mg/dL (75-99)
[2019-12-21] MEDS: hydrALAZINE HCL 50 MG TAB PO SCH (20:08)
[2019-12-21] MEDS ORDERED: ATORVASTATIN 80 MG TAB PO SCH (21:00)
[2019-12-22 06:39] LABS: Glucose,Whole Blood 141 mg/dL (75-99)
[2019-12-22 06:44] LABS: African American GFR (CKD) >90 (>60 ml/min/1.73 sqM); Anion Gap 4 mmol/L; Blood Urea Nitrogen 14 mg/dL (7-17); Calcium 8.9 mg/dL (8.4-10.2); Carbon Dioxide 26 mmol/L (22-30); Chloride 108 mmol/L (98-107); Glucose 132 mg/dL (74-99); Non-African American GFR(CKD) 80 (>60 ml/min/1.73 sqM); Potassium 4.1 mmol/L (3.5-5.1); Sodium 138 mmol/L (137-145)
[2019-12-22] MEDS: INSULIN ASPART (NovoLOG) 100 UNIT/ML VIAL SQ SCH (06:52)
[2019-12-22] MEDS ORDERED: PANTOPRAZOLE 40 MG TABLET PO SCH (07:30)
--- NOTE | 2019-12-22 07:48 | PN ---
PROGRESS NOTE Mrs. Jones is a 74-year-old female who presented with symptoms of chest discomfort and abnormal myocardial perfusion imaging, underwent cardiac catheterization, was found to have critical stenosis involving the diagonal branch, underwent stenting of that vessel. She is doing well this morning. She denies any chest pain. Her breathing has been stable. She denies any dizziness or palpitation. She denies any nausea. She continues to be in sinus mechanism. She is on aspirin once a day, Lipitor 80 mg daily, amlodipine 10 mg daily, Plavix 75 mg daily, hydralazine 100 mg twice a day, losartan 100 mg daily, metoprolol tartrate 50 mg twice a day. PHYSICAL EXAMINATION: Blood pressure 150/70 with the heart in the 60s. LUNGS: Clear. HEART: Regular rate and rhythm. S1, S2. No S3. No rub with a systolic murmur. ABDOMEN: Soft, obese, nontender. RIGHT GROIN: No hematoma. LAB DATA: Lab data revealed BUN and creatinine 14 and 0.75, potassium 4.1. EKG revealed no acute changes. IMPRESSION: 1. Status post stenting of the diagonal branch. 2. Patent left anterior descending artery. 3. Hypertension. 4. Hyperlipidemia. 5. Diabetes mellitus. RECOMMENDATION: Patient will be discharged home today and followed as an outpatient. She will resume her metformin in 48 hours. MMODL / IJN: [id number] /
[2019-12-22 08:05] VITALS: BP 153/76; PULSE 63; TEMP 97.7
[2019-12-22] MEDS: hydrALAZINE HCL 50 MG TAB PO SCH (08:57)
[2019-12-22] MEDS: METOPROLOL TARTRATE 50 MG TAB PO SCH (08:57)
[2019-12-22] MEDS ORDERED: ESCITALOPRAM 10 MG TAB PO SCH (09:00)
[2019-12-22] MEDS ORDERED: PIOGLITAZONE 30 MG TAB PO SCH (09:00)
[2019-12-22] MEDS ORDERED: amLODIPine 10 MG TAB PO SCH (09:00)
[2019-12-22] MEDS ORDERED: ASPIRIN 81 MG PO SCH (09:00)
[2019-12-22] MEDS ORDERED: CLOPIDOGREL 75 MG TAB PO SCH (09:00)
[2019-12-22] MEDS ORDERED: LOSARTAN 50 MG TAB PO SCH (09:00)
== END 2019-12-22 10:00 | disposition home or self-care (01) ==
LOC: CATHCVL 06:12 → 3NCARDOBS 09:04 → CATHCVL 12-22 10:00
PROVIDERS: ATTEND Internal Medicine Interventional Cardiology
DX: I25.10 Atherosclerotic heart disease of native coronary artery without angina pectoris (principal); I25.5 Ischemic cardiomyopathy; I10 Essential (primary) hypertension; E78.2 Mixed hyperlipidemia; E11.9 Type 2 diabetes mellitus without complications; K21.9 Gastro-esophageal reflux disease without esophagitis; Z95.5 Presence of coronary angioplasty implant and graft; Z79.02 Long term (current) use of antithrombotics/antiplatelets; Z79.82 Long term (current) use of aspirin; Z79.899 Other long term (current) drug therapy; Z88.5 Allergy status to narcotic agent; Z88.8 Allergy status to other drugs, medicaments and biological substances; Z90.89 Acquired absence of other organs; Z87.891 Personal history of nicotine dependence; Z82.49 Family history of ischemic heart disease and other diseases of the circulatory system
CPT/HCPCS: 93458; 80048; 85025; C9600; C1769 ×6; C1760; C1887 ×2; C1725 ×2; C1894; C1874; J2250; J2001; J3010; J0583; Q9967 ×2

== ENCOUNTER 2021-03-09 06:49 | Emergency (ER) | payer MEDICARE ==
[2021-03-09 06:54] VITALS: BP 159/80; PULSE 80; RESP 19; TEMP 99.1
[2021-03-09] MEDS ORDERED: HYDROmorphone 1 MG/ML 1 ML SYRINGE IM STA (06:59)
--- NOTE | 2021-03-09 07:46 | XR ---
EXAMINATION TYPE: XR Hip LT and AP Pelvis, XR knee 4V LT, XR femur LT DATE OF EXAM: 03/09/2021 COMPARISON: NONE HISTORY: Fall injury 2 days ago with pain TECHNIQUE: A single AP view of the pelvis is obtained. Two views of the left hip and femur are obtain ed. 4 views left knee. FINDINGS: There is no acute fracture/dislocation evident in the pelvis. [id number] axial joint space loss in both hips left greater than right. Sacroiliac joints symmetric and within normal limit s. Pubic symphysis is intact. The overlying soft tissue appears unremarkable. Two views of left hip and femur show no acute fracture or dislocation. No focal lytic or sclerotic l esion seen in the femur. The overlying soft tissue is unremarkable. Images of the left knee show overlying clothing or bandage material. No acute fracture or dislocation is seen. Some lateral tilting or subluxation patella noted on sunrise view. Moderate patellofemoral compartment narrowing. Ossified flabella is incidentally noted. IMPRESSION: There is no acute fracture or dislocation in the pelvis, left hip, femur, or knee.
--- NOTE | 2021-03-09 08:03 | ED ---
Lower Extremity Injury HPI - General Chief Complaint: Extremity Injury, Lower Stated Complaint: Fall, LT knee pain Time Seen by Provider: 03/09/21 06:53 Source: patient, EMS, RN notes reviewed Mode of arrival: EMS - History of Present Illness Initial Comments: Patient is a 76-year-old female that presents to the emergency department complaining of left knee and hip pain. She notes she was in the shower when she slipped on some shampoo and her body went one way and her knee went the other way. She notes that this happened approximately 2 days ago. She notes that she came in this morning for evaluation for possible fractures. She notes that she does have tenderness over the medial aspect of her left knee and lateral aspect of her left hip. Patient was otherwise well-appearing. She notes her pain was approximately a 6-7 out of 10 with no relief or mental medications. She denied any other issues or complaints. She denied chest pain shortness of breath headache nausea vomiting diarrhea constipation fever fatigue chills. - Related Data Home Medications Medication Instructions Recorded Confirmed sitaGLIPtin PHOS/metFORMIN HCL 50 mg PO BID 01/11/19 12/21/19 [Janumet 50-1,000 mg Tablet] Cetirizine HCl [Zyrtec] 10 mg PO DAILY 12/15/19 12/15/19 Clopidogrel [Plavix] 75 mg PO DAILY 12/15/19 12/21/19 Escitalopram [Lexapro] 10 mg PO DAILY 12/15/19 12/15/19 Metoprolol Tartrate [Lopressor] 50 mg PO BID 12/15/19 12/21/19 Multivitamins, Thera [Multivitamin 1 tab PO DAILY 12/15/19 12/21/19 (formulary)] Omeprazole [PriLOSEC] 40 mg PO QAM 12/15/19 12/21/19 Pioglitazone [Actos] 30 mg PO QAM 12/15/19 12/21/19 Vit C/E/Zn/Coppr/Lutein/Zeaxan 1 each PO DAILY 12/15/19 12/21/19 [Preservision Areds 2 Softgel] Previous Rx's Medication Instructions Recorded Aspirin 81 mg PO DAILY #30 chew 01/05/19 Atorvastatin [Lipitor] 80 mg PO HS #30 tab 01/05/19 Losartan [Cozaar] 100 mg PO DAILY #60 tab 01/05/19 Nitroglycerin Sl Tabs [Nitrostat] 0.4 mg SUBLINGUAL Q5M PRN #20 tab 01/05/19 amLODIPine [Norvasc] 10 mg PO DAILY #30 tab 01/05/19 hydrALAZINE HCL [Apresoline] 100 mg PO BID #120 tab 01/05/19 Allergies Allergy/AdvReac Type Severity Reaction Status Date / Time codeine AdvReac Vomiting Verified 03/09/21 06:54 metoclopramide HCl AdvReac Hallucinati Verified 03/09/21 06:54 [From Reglan] ons morphine AdvReac Vomiting Verified 03/09/21 06:54 ticagrelor [From Brilinta] AdvReac Nausea & Verified 03/09/21 06:54 Vomiting Review of Systems ROS Statement: Those systems with pertinent positive or pertinent negative responses have been documented in the HPI. ROS Other: All systems not noted in ROS Statement are negative. Past Medical History Past Medical History: COPD, Diabetes Mellitus, GERD/Reflux, Hyperlipidemia, Hypertension, Myocardial Infarction (SD) Additional Past Medical History / Comment(s): diarrhea on and off d/t metformin per pt, seasonal sinus problems. states no current RX for COPD Last Myocardial Infarction Date:: 01/02/19 History of Any Multi-Drug Resistant Organisms: None Reported Past Surgical History: Heart Catheterization With Stent, Tonsillectomy, Tubal Ligation Additional Past Surgical History / Comment(s): D & C, colonoscopy with cecal polypectomy, bilateral cataract removals/lens implants. Past Anesthesia/Blood Transfusion Reactions: Postoperative Nausea & Vomiting (PONV) Additional Past Anesthesia/Blood Transfusion Reaction / Comment(s): had hallucinations with Reglan in post op Date of Last Stent Placement:: 01/02/19 Past Psychological History: Anxiety Smoking Status: Never smoker Past Alcohol Use History: None Reported Past Drug Use History: None Reported - Past Family History Mother Family Medical History: CVA/TIA, Diabetes Mellitus, Deep Vein Thrombosis (DVT) Additional Family Medical History / Comment(s): "blood clots in her legs when she was in her 40's from taking control". TIAs Father Family Medical History: Cancer, Congestive Heart Failure (CHF), Coronary Artery Disease (CAD), Diabetes Mellitus, Myocardial Infarction (SD) Additional Family Medical History / Comment(s): Father had a SD at the age of 54yrs. CA: skin ("tip top of his ear"). He of CHF at the age of 84 yrs. General Exam General appearance: alert, in no apparent distress Head exam: Present: atraumatic, normocephalic, normal inspection Eye exam: Present: normal appearance, PERRL, EOMI. Absent: scleral icterus, conjunctival injection, periorbital swelling ENT exam: Present: normal exam, mucous membranes moist Neck exam: Present: normal inspection Respiratory exam: Present: normal lung sounds bilaterally. Absent: respiratory distress, wheezes, rales, rhonchi, stridor Cardiovascular Exam: Present: regular rate, normal rhythm, normal heart sounds. Absent: systolic murmur, diastolic murmur, rubs, gallop, clicks Left Hip exam: Present: normal inspection, full ROM, tenderness (Lateral aspect). Absent: swelling, abrasion, laceration, ecchymosis, deformity, crepitus, dislocation Upper Leg exam: Present: normal inspection, full ROM, tenderness (Lateral aspect proximal to the knee). Absent: swelling, abrasion, laceration, ecchymosis, deformity Knee exam: Present: normal inspection, tenderness (Medial aspect), swelling (Minimal), ecchymosis (Medial aspect of the knee). Absent: full ROM (Secondary to pain), abrasion, laceration Neurological exam: Present: alert, oriented X3 Psychiatric exam: Present: normal affect, normal mood Skin exam: Present: warm, dry, intact, normal color. Absent: rash Course Vital Signs 03/09/21 06:51 Temperature 99.1 F Pulse Rate 80 Respiratory 19 Rate Blood Pressure 159/80 O2 Sat by Pulse 98 Oximetry Medical Decision Making - Medical Decision Making 76-year-old female complaining of left knee and hip pain after slipping in the shower 2 days ago. X-ray of the left hip, femur, knee ordered. 1 mg of Dilaudid ordered for pain. X-rays negative for any acute fractures or dislocations. Patient most likely suffered a knee sprain and hip sprain secondary to falling. Patient will be given referral to orthopedics. Case discussed with Dr. Ramirez, patient discharge home. - Radiology Data Radiology results: report reviewed, image reviewed X-ray of the left hip and pelvis, knee, femur: There is no acute fracture dislocation the pelvis left hip femur or knee. Disposition Clinical Impression: Left knee sprain, Sprain of left hip Disposition: HOME SELF-CARE Condition: Stable Instructions (If sedation given, give patient instructions): Knee Sprain (ED) Additional Instructions: Please return to the Emergency Department if symptoms worsen or any other concerns. Follow-up with primary care 1-2 days. Follow-up with orthopedics as possible. Weightbearing as tolerated. Take Tylenol and Motrin as needed for pain. Is patient prescribed a controlled substance at d/c from ED?: No Referrals: Dale Harden MD [Primary Care Provider] - 1-2 days Nayeli Friedn DO [Doctor of Osteopathic Medicine] - 1-2 days Time of Disposition: 08:03
[2021-03-09] MEDS ORDERED: ONDANSETRON 4 MG TAB PO STA (08:26)
[2021-03-09] MEDS ORDERED: ONDANSETRON 4 MG ODT STARTER PACK 2 TAB BTL PO STA (08:35)
== END 2021-03-09 09:10 | disposition home or self-care (01) ==
LOC: EC 06:49
DX: S83.92XA Sprain of unspecified site of left knee, initial encounter (principal); S73.102A Unspecified sprain of left hip, initial encounter; J44.9 Chronic obstructive pulmonary disease, unspecified; E11.36 Type 2 diabetes mellitus with diabetic cataract; K21.9 Gastro-esophageal reflux disease without esophagitis; E78.5 Hyperlipidemia, unspecified; I10 Essential (primary) hypertension; I25.2 Old myocardial infarction; F41.9 Anxiety disorder, unspecified; Z79.84 Long term (current) use of oral hypoglycemic drugs; Z79.02 Long term (current) use of antithrombotics/antiplatelets; Z79.82 Long term (current) use of aspirin; Z88.5 Allergy status to narcotic agent; Z88.1 Allergy status to other antibiotic agents; Z90.89 Acquired absence of other organs; Z98.51 Tubal ligation status; W01.0XXA Fall on same level from slipping, tripping and stumbling without subsequent striking against object, initial encounter
CPT/HCPCS: 99284; 96372; 73502; 73552; 73564; J1170; S0119

== ENCOUNTER 2021-12-07 19:14 | Emergency (ER) | payer MEDICARE ==
[2021-12-07 19:21] VITALS: BP 155/105; PULSE 92; RESP 18; TEMP 98.6
[2021-12-07] MEDS ORDERED: SODIUM CHLORIDE 0.9% 1,000 ML IV STA (19:32)
[2021-12-07 20:33] LABS: Basophils # (A) 0.1 k/uL (0-0.2); Basophils % (A) 1 %; Eosinophils % (A) 0 %; HCT 40.2 % (34.0-46.0); HGB 13.2 gm/dL (11.4-16.0); Lymphocytes # (A) 0.8 k/uL (1.0-4.8); Lymphocytes % (A) 13 %; MCH 26.5 pg (25.0-35.0); MCHC 32.8 g/dL (31.0-37.0); Mean Platelet Volume 9.8; Monocytes # (A) 0.4 k/uL (0-1.0); Monocytes % (A) 8 %; Neutrophils # (A) 4.4 k/uL (1.3-7.7); Neutrophils % (A) 74 %; Platelet Count 177 k/uL (150-450); RBC 4.96 m/uL (3.80-5.40); RDW 15.4 % (11.5-15.5); WBC 5.9 k/uL (3.8-10.6)
--- NOTE | 2021-12-07 20:43 | XR ---
EXAMINATION TYPE: XR chest 2V DATE OF EXAM: 12/07/2021 COMPARISON: 01/11/2019 HISTORY: Weakness TECHNIQUE: Frontal and lateral views of the chest are obtained. FINDINGS: There is mild bibasilar streaky opacities. No pleural effusion, or pneumothorax seen. The cardiac silhouette size is within normal limits. The osseous structures are intact. IMPRESSION: Mild bibasilar opacities, probably atelectasis.
--- NOTE | 2021-12-07 20:47 | ED ---
General Adult HPI - General Chief complaint: Weakness Stated complaint: Weakness, covid+ Time Seen by Provider: 12/07/21 19:22 Source: patient, EMS, RN notes reviewed, old records reviewed Mode of arrival: EMS - History of Present Illness Initial comments: Patient is a 76-year-old female with past medical history remarkable for COPD, diabetes, hypertension, CAD who took a home Covid test and found to be positive. Over the last few days, patient's been feeling more weak. Endorses generalized body fatigue and aches. Denies nausea, vomiting, diarrhea. Endorses mild nonproductive cough. States she has fallen multiple times. However when I do ask her about this, she states she is not actively falling, but rather slides down from the couch on her bottom to sit on the ground. States she feels weak. Has not struck her head. No injuries from sliding down. Took a home Covid test which was positive. Was vaccinated and boosted. Presents for further evaluation of this time. Is not on oxygen at home. - Related Data Home Medications Medication Instructions Recorded Confirmed sitaGLIPtin PHOS/metFORMIN HCL 50 mg PO BID 01/11/19 12/21/19 [Janumet 50-1,000 mg Tablet] Cetirizine HCl [Zyrtec] 10 mg PO DAILY 12/15/19 12/15/19 Clopidogrel [Plavix] 75 mg PO DAILY 12/15/19 12/21/19 Escitalopram [Lexapro] 10 mg PO DAILY 12/15/19 12/15/19 Metoprolol Tartrate [Lopressor] 50 mg PO BID 12/15/19 12/21/19 Multivitamins, Thera [Multivitamin 1 tab PO DAILY 12/15/19 12/21/19 (formulary)] Omeprazole [PriLOSEC] 40 mg PO QAM 12/15/19 12/21/19 Pioglitazone [Actos] 30 mg PO QAM 12/15/19 12/21/19 Vit C/E/Zn/Coppr/Lutein/Zeaxan 1 each PO DAILY 12/15/19 12/21/19 [Preservision Areds 2 Softgel] Previous Rx's Medication Instructions Recorded Aspirin 81 mg PO DAILY #30 chew 01/05/19 Atorvastatin [Lipitor] 80 mg PO HS #30 tab 01/05/19 Losartan [Cozaar] 100 mg PO DAILY #60 tab 01/05/19 Nitroglycerin Sl Tabs [Nitrostat] 0.4 mg SUBLINGUAL Q5M PRN #20 tab 01/05/19 amLODIPine [Norvasc] 10 mg PO DAILY #30 tab 01/05/19 hydrALAZINE HCL [Apresoline] 100 mg PO BID #120 tab 01/05/19 Albuterol Inhaler [Ventolin Hfa 1 puff INHALATION RT-TID #8 gm 12/07/21 Inhaler] dexAMETHasone [Decadron] 6 mg PO DAILY 4 Days #4 tablet 12/07/21 Allergies Allergy/AdvReac Type Severity Reaction Status Date / Time codeine AdvReac Vomiting Verified 03/09/21 06:54 metoclopramide HCl AdvReac Hallucinati Verified 03/09/21 06:54 [From Reglan] ons morphine AdvReac Vomiting Verified 03/09/21 06:54 ticagrelor [From Brilinta] AdvReac Nausea & Verified 03/09/21 06:54 Vomiting Review of Systems ROS Statement: Those systems with pertinent positive or pertinent negative responses have been documented in the HPI. Review of Systems: CONST: Denies fever EYES: Denies blurry vision ENT: Endorses nasal congestion C/V: Denies Chest pain RESP: Denies shortness of breath GI: Denies abdominal pain : Denies dysuria SKIN: Denies rash. MSK: Endorses generalized joint aches NEURO: Endorses fatigue ROS Other: All systems not noted in ROS Statement are negative. Past Medical History Past Medical History: COPD, Diabetes Mellitus, GERD/Reflux, Hyperlipidemia, Hypertension, Myocardial Infarction (PA) Additional Past Medical History / Comment(s): diarrhea on and off d/t metformin per pt, seasonal sinus problems. states no current RX for COPD Last Myocardial Infarction Date:: 01/02/19 History of Any Multi-Drug Resistant Organisms: None Reported Past Surgical History: Heart Catheterization With Stent, Tonsillectomy, Tubal Ligation Additional Past Surgical History / Comment(s): D & C, colonoscopy with cecal polypectomy, bilateral cataract removals/lens implants. Past Anesthesia/Blood Transfusion Reactions: Postoperative Nausea & Vomiting (PONV) Additional Past Anesthesia/Blood Transfusion Reaction / Comment(s): had hallucinations with Reglan in post op Date of Last Stent Placement:: 01/02/19 Past Psychological History: Anxiety Smoking Status: Never smoker Past Alcohol Use History: None Reported Past Drug Use History: None Reported - Past Family History Mother Family Medical History: CVA/TIA, Diabetes Mellitus, Deep Vein Thrombosis (DVT) Additional Family Medical History / Comment(s): "blood clots in her legs when she was in her 40's from taking control". TIAs Father Family Medical History: Cancer, Congestive Heart Failure (CHF), Coronary Artery Disease (CAD), Diabetes Mellitus, Myocardial Infarction (PA) Additional Family Medical History / Comment(s): Father had a PA at the age of 54yrs. CA: skin ("tip top of his ear"). He of CHF at the age of 84 yrs. General Exam - General Exam Comments Initial Comments: General: Appears in no acute distress. HEAD: Normal with no signs of head trauma. EYES: PERRLA, EOMI, conjunctiva normal, no discharge. ENT: Hearing grossly intact, normal oropharynx. RESPIRATORY: Clear breath sounds bilaterally. No wheezes, rales, or rhonchi. Intermittent hypoxia at rest, with pulse ox ranging from 93% to 98%. No increased work of breathing. C/V: Regular rate and rhythm. S1 and S2 auscultated, no edema, peripheral pulses 2+ and intact throughout ABD: Abd is soft, nontender, nondistended EXT: Normal range of motion, no obvious deformity SKIN: No rashes or lesions observed on exposed skin. NEURO: Alert and oriented 4. Course Vital Signs 12/07/21 19:15 Temperature 98.6 F Pulse Rate 92 Respiratory 18 Rate Blood Pressure 155/105 O2 Sat by Pulse 93 L Oximetry Medical Decision Making - Medical Decision Making Based on the patient's presentation and physical exam, I'm concerned for COVID-19 infection. Exam is relatively unremarkable. She is mostly not hypoxic. Has had some mild reduced by mouth intake over the last few days. Did discuss obtain basic labs, COVID-19 testing, chest x-ray, screening EKG with her. She was in agreement this plan. We'll give her IV fluids as well she is not requiring oxygen. No severe hypoxia. No increased work of breathing. Vital signs are within normal limits otherwise. EKG shows no acute changes and no signs of acute ischemia. Chest x-ray reveals what appears to be chronic bibasilar hazy opacities which is likely atelectasis. Patient's laboratory studies are remarkable for positive Covid test. The remainder of the labs are unremarkable. Flu is negative. On reevaluation, vital signs remained within normal limits. Discussed with her the results of laboratory studies and imaging. She is feeling improved. I did discuss with her believe it is safer to be discharged home, however I would like to provide her with medical antibodies. She was in agreement this plan. She consented to therapy. We'll also be given Decadron for home with her history of COPD. She'll be given a dose prior to discharge. She was in agreement this plan. We discussed obtaining a pulse oximeter which she has. We also discussed quarentine. Patient was in agreement with this plan. Patient tolerated monoclonal antibodies well. Will be discharged home after an hour of observation. I will provide the patient with a prescription for Decadron. I instructed the patient to follow up with their PCP in the next 1-3 days. I explained that the patient should return to the emergency department if they experience any worsening symptoms. Strict return precautions were discussed with the patient. The patient expressed understanding of these instructions. I answered all questions that the patient had. The patient was discharged home in good condition with their prescriptions and follow up information. - Lab Data Result diagrams: 12/07/21 20:26 12/07/21 20:26 Lab Results 12/07/21 12/07/21 12/07/21 Range/Units 20:26 20:26 20:26 WBC 5.9 (3.8-10.6) k/uL RBC 4.96 (3.80-5.40) m/uL Hgb 13.2 (11.4-16.0) gm/dL Hct 40.2 (34.0-46.0) % MCV 81.0 (80.0-100.0) fL MCH 26.5 (25.0-35.0) pg MCHC 32.8 (31.0-37.0) g/dL RDW 15.4 (11.5-15.5) % Plt Count 177 (150-450) k/uL MPV 9.8 Neutrophils % 74 % Lymphocytes % 13 % Monocytes % 8 % Eosinophils % 0 % Basophils % 1 % Neutrophils # 4.4 (1.3-7.7) k/uL Lymphocytes # 0.8 L (1.0-4.8) k/uL Monocytes # 0.4 (0-1.0) k/uL Eosinophils # 0.0 (0-0.7) k/uL Basophils # 0.1 (0-0.2) k/uL Sodium 136 L (137-145) mmol/L Potassium 4.1 (3.5-5.1) mmol/L Chloride 106 (98-107) mmol/L Carbon Dioxide 20 L (22-30) mmol/L Anion Gap 10 mmol/L BUN 18 H (7-17) mg/dL Creatinine 1.02 (0.52-1.04) mg/dL Est GFR (CKD-EPI)AfAm 63 (>60 ml/min/1.73 sqM) Est GFR (CKD-EPI)NonAf 55 (>60 ml/min/1.73 sqM) Glucose 137 H (74-99) mg/dL Calcium 9.6 (8.4-10.2) mg/dL Magnesium 1.8 (1.6-2.3) mg/dL Total Bilirubin 0.5 (0.2-1.3) mg/dL AST 37 H (14-36) U/L ALT 20 (4-34) U/L Alkaline Phosphatase 112 (38-126) U/L Total Protein 7.9 (6.3-8.2) g/dL Albumin 4.6 (3.5-5.0) g/dL Coronavirus (PCR) (Not Detectd) Influenza Type A RNA Not Detected (Not Detectd) Influenza Type B (PCR) Not Detected (Not Detectd) 12/07/21 Range/Units 20:26 WBC (3.8-10.6) k/uL RBC (3.80-5.40) m/uL Hgb (11.4-16.0) gm/dL Hct (34.0-46.0) % MCV (80.0-100.0) fL MCH (25.0-35.0) pg MCHC (31.0-37.0) g/dL RDW (11.5-15.5) % Plt Count (150-450) k/uL MPV Neutrophils % % Lymphocytes % % Monocytes % % Eosinophils % % Basophils % % Neutrophils # (1.3-7.7) k/uL Lymphocytes # (1.0-4.8) k/uL Monocytes # (0-1.0) k/uL Eosinophils # (0-0.7) k/uL Basophils # (0-0.2) k/uL Sodium (137-145) mmol/L Potassium (3.5-5.1) mmol/L Chloride (98-107) mmol/L Carbon Dioxide (22-30) mmol/L Anion Gap mmol/L BUN (7-17) mg/dL Creatinine (0.52-1.04) mg/dL Est GFR (CKD-EPI)AfAm (>60 ml/min/1.73 sqM) Est GFR (CKD-EPI)NonAf (>60 ml/min/1.73 sqM) Glucose (74-99) mg/dL Calcium (8.4-10.2) mg/dL Magnesium (1.6-2.3) mg/dL Total Bilirubin (0.2-1.3) mg/dL AST (14-36) U/L ALT (4-34) U/L Alkaline Phosphatase (38-126) U/L Total Protein (6.3-8.2) g/dL Albumin (3.5-5.0) g/dL Coronavirus (PCR) Detected A (Not Detectd) Influenza Type A RNA (Not Detectd) Influenza Type B (PCR) (Not Detectd) - EKG Data -: EKG Interpreted by Me EKG Comments: 12-lead Electrocardiogram Interpretation Note EKG was reviewed and interpreted by myself. 12-lead ECG performed at 2022 is interpreted by me as revealing normal sinus rhythm at a rate of 79 beats per minute. Left axis deviation. OK interval of 159 ms, QRS duration is 88 ms, QTc is 411 ms.. Chronic T-wave inversion in lead III. There were no acute ST or T wave abnormalities to suggest myocardial ischemia or injury. R wave progression across the precordium was satisfactory. By my interpretation this EKG is non- diagnostic for acute ischemia. Disposition Clinical Impression: COVID-19 virus infection Disposition: HOME SELF-CARE Condition: Good Instructions (If sedation given, give patient instructions): COVID-19 (Coronavirus Disease 2019) (ED) Additional Instructions: Quarentine until 2 days symptom free. Monitor pulse oximetry and return if pulse ox is less than 90%. Prescriptions: dexAMETHasone [Decadron] 6 mg PO DAILY 4 Days #4 tablet Albuterol Inhaler [Ventolin Hfa Inhaler] 1 puff INHALATION RT-TID #8 gm Is patient prescribed a controlled substance at d/c from ED?: No Referrals: Dale Harden MD [Primary Care Provider] - 1-2 days Time of Disposition: 21:00
[2021-12-07 20:55] LABS: Albumin 4.6 g/dL (3.5-5.0); Calcium 9.6 mg/dL (8.4-10.2); Magnesium 1.8 mg/dL (1.6-2.3); Potassium 4.1 mmol/L (3.5-5.1); Total Bilirubin 0.5 mg/dL (0.2-1.3); Total Protein 7.9 g/dL (6.3-8.2)
[2021-12-07] MEDS ORDERED: DEXAMETHASONE SOD PHOSPHATE 10 MG/ML 1 ML VIAL IVP STA (21:04)
[2021-12-07] MEDS ORDERED: BEBTELOVIMAB (EUA) 175 MG/2 ML VIAL IV ONE (21:30)
== END 2021-12-07 23:09 | disposition home or self-care (01) ==
LOC: EC 19:14
DX: U07.1 COVID-19 (principal); E11.9 Type 2 diabetes mellitus without complications; J44.9 Chronic obstructive pulmonary disease, unspecified; K21.9 Gastro-esophageal reflux disease without esophagitis; E78.5 Hyperlipidemia, unspecified; I25.2 Old myocardial infarction; I10 Essential (primary) hypertension; Z88.5 Allergy status to narcotic agent; Z88.8 Allergy status to other drugs, medicaments and biological substances; Z79.84 Long term (current) use of oral hypoglycemic drugs; Z79.899 Other long term (current) drug therapy; Z79.02 Long term (current) use of antithrombotics/antiplatelets
CPT/HCPCS: 36415; 93005; 80053; 83735; 85025; 87502; 87635; 71046; 99285; 96374; J1100; Q0222

== ENCOUNTER → 2022-02-26 | Outpatient (CLI) | payer MEDICARE ==
--- NOTE | 2022-02-27 07:08 | US ---
EXAMINATION TYPE: US carotid duplex BILAT DATE OF EXAM: 02/26/2022 COMPARISON: NONE CLINICAL HISTORY: G45.9 TIA. TECHNIQUE: Carotid duplex ultrasound examination. Indirect Doppler criteria was utilized. FINDINGS: EXAM MEASUREMENTS: RIGHT: Peak Systolic Velocity (PSV) cm/sec ----- Right CCA: 58.5 ----- Right ICA: 90.4 ----- Right ECA: 77.7 ICA/CCA ratio: 1.5 RIGHT: End Diastole cm/sec ----- Right CCA: 12.7 ----- Right ICA: 23.7 ----- Right ECA: 8.8 LEFT: Peak Systolic Velocity (PSV) cm/sec ----- Left CCA: 65.5 ----- Left ICA: 98.0 ----- Left ECA: 78.5 ICA/CCA ratio: 1.5 LEFT: End Diastole cm/sec ----- Left CCA: 16.3 ----- Left ICA: 35.4 ----- Left ECA: 10.5 VERTEBRALS (direction of flow): Right Vertebral: Antegrade Left Vertebral: Antegrade Mild atherosclerotic calcification of the carotid bulbs. IMPRESSION: No evidence for hemodynamically significant stenosis of the internal carotid arteries. Criteria for Assigning % of Stenosis / Diameter reduction (Estimation based on the indirect measurements of the internal carotid artery velocities (ICA PSV). 1. Normal (no stenosis)=ICA PSV < 125 cm/s: ratio < 2.0: ICA EDV<40 cm/s. 2. Less than 50% stenosis=ICA PSV < 125 cm/s: ratio < 2.0: ICA EDV<40 cm/s. 3. 50 to 69% stenosis=ICA PSV of 125 to 230 cm/s: ration 2.0 ? 4.0: ICA EDV 40-100 cm/s. 4. Greater than 70% stenosis to near occlusion= ICA PSV > 230 cm/s: ratio > 4.0: ICA EDV > 100 cm/s. 5. Near occlusion= ICA PSV velocities may be low or undetectable: variable ratio and ICA EDV. 6. Total occlusion=unable to detect flow.
--- NOTE | 2022-02-27 07:25 | CT ---
EXAMINATION TYPE: CT brain wo con CT DLP: 1089.3 mGycm, Automated exposure control for dose reduction was used. DATE OF EXAM: 02/26/2022 4:31 PM COMPARISON: None. CLINICAL INDICATION:Female, 77 years old with history of G45.9 TIA, TIA TECHNIQUE: Brain: Axial CT images of the brain were obtained with coronal and sagittal reformats created and rev iewed. Contrast used: None. Oral contrast used: None. FINDINGS: Brain: Extra-axial spaces: No abnormal extra-axial fluid collections. Ventricular system: Within normal limits Cerebral parenchyma: No acute intraparenchymal hemorrhage or mass effect. The loo-white junction is well differentiated. Cerebellum: Unremarkable. Mass effect: No evidence of midline shift. Intracranial vasculature: Atherosclerotic calcifications of the intracranial vessels. Soft tissues: Normal. Calvarium/osseous structures: No depressed skull fracture. Paranasal sinuses and mastoid air cells: Mild scattered paranasal sinus disease. Visualized orbits: Bilateral aphakia IMPRESSION: No acute intracranial process.
== END | disposition home or self-care (01) ==
LOC: RADUSWWP 15:28
PROVIDERS: ATTEND Family Medicine
DX: G45.9 Transient cerebral ischemic attack, unspecified (principal)
CPT/HCPCS: 70450; 93880

== ENCOUNTER → 2022-03-21 | Outpatient (CLI) | payer MEDICARE ==
--- NOTE | 2022-03-22 07:03 | CA ---
Transthoracic Echo Report Name: Marcella Jones Age: 77 Gender: F : 1945 Exam Date: 03/21/2022 14:23 Exam Location: [place] [facility] Ht (in): 66 Wt (lb): 175 Ordering Physician: Dale Harden MD Attending/Referring Phys: [employer] Head Matcher Bharti Garcia RDCS Procedure CPT: Indications: TIA G45.9 Cardiac Hx: Technical Quality: Fair Contrast 1: Total Dose (mL): Contrast 2: Total Dose (mL): MEASUREMENTS (Male / Female) Normal Values 2D ECHO LV Diastolic Diameter PLAX 3.8 cm 4.2 - 5.9 / 3.9 - 5.3 cm LV Systolic Diameter PLAX 2.4 cm IVS Diastolic Thickness 1.4 cm 0.6 - 1.0 / 0.6 - 0.9 cm LVPW Diastolic Thickness 1.4 cm 0.6 - 1.0 / 0.6 - 0.9 cm LV Relative Wall Thickness 0.8 RV Internal Dim ED PLAX 3.5 cm LA Volume 42.4 cm??? 18 - 58 / 22 - 52 cm??? M-MODE Aortic Root Diameter MM 2.9 cm LA Systolic Diameter MM 4.7 cm LA Ao Ratio MM 1.6 AV Cusp Separation MM 1.5 cm DOPPLER AV Peak Velocity 131.8 cm/s AV Peak Gradient 7.0 mmHg AV Mean Velocity 98.8 cm/s AV Mean Gradient 4.4 mmHg AV Velocity Time Integral 22.8 cm LVOT Peak Velocity 83.7 cm/s LVOT Peak Gradient 2.8 mmHg MV Area PHT 4.9 cm??? Mitral E Point Velocity 38.5 cm/s Mitral A Point Velocity 80.4 cm/s Mitral E to A Ratio 0.5 MV Deceleration Time 154.7 ms MV E' Velocity 5.8 cm/s Mitral E to MV E' Ratio 6.7 FINDINGS Left Ventricle Moderately increased left ventricular wall thickness. Normal left ventricular systolic function with no obvious regional wall motion abnormalities. Left ventricular ejection fraction is estimated at 55-60 %. Right Ventricle Mild right ventricular dilatation. Right ventricular systolic pressure within normal limits. Right Atrium Normal right atrial size. Left Atrium Normal left atrial size. Mitral Valve Structurally normal mitral valve. No evidence for mitral valve prolapse. No mitral stenosis. Trace to mild mitral regurgitation. Aortic Valve Trileaflet aortic valve. No aortic valve stenosis or regurgitation. Tricuspid Valve Structurally normal tricuspid valve. Trace to mild tricuspid regurgitation. Pulmonic Valve Pulmonic valve not well visualized. Pericardium No pericardial effusion. Aorta Normal size aortic root and proximal ascending aorta. CONCLUSIONS 1. Normal size and systolic function with moderate left ventricular hypertrophy 2. Trace to mild mitral and tricuspid regurgitation Previewed by: Dr. Leda Reyes MD (Electronically Signed) Final Date: 22 March 2022 07:02
== END | disposition home or self-care (01) ==
LOC: RADECHMAIN 14:10
PROVIDERS: ATTEND Family Medicine
DX: I08.1 Rheumatic disorders of both mitral and tricuspid valves (principal); G45.9 Transient cerebral ischemic attack, unspecified
CPT/HCPCS: 93306

== ENCOUNTER 2022-04-28 23:16 | Observation (INO) | payer MEDICARE ==
[2022-04-28 23:26] LABS: Glucose,Whole Blood 259 mg/dL (70-110)
[2022-04-28] MEDS ORDERED: SODIUM CHLORIDE 0.9% 1,000 ML IV STA (23:28)
[2022-04-28] MEDS ORDERED: MECLIZINE 12.5 MG TAB PO STA (23:30)
--- NOTE | 2022-04-28 23:34 | ED ---
Dizziness HPI - General Chief Complaint: Dizziness Stated Complaint: Fall, dizziness Time Seen by Provider: 04/28/22 23:20 Source: EMS, RN notes reviewed Mode of arrival: EMS Limitations: no limitations - History of Present Illness Initial Comments: This is a pleasant 77-year-old female who presents to the emergency department via EMS after having a fall at home. Patient states she has been having an ongoing problem with dizziness. Patient states she got dizzy in her kitchen and fell. Patient recalls the entire event. No loss of consciousness. No blood thinners. Denies any significant pain. Patient denied any preceding symptomology other than the dizziness. There was no chest pain. No shortness of breath. No abdominal pain. No focal weakness. Patient states she had an episode such as this last month and was evaluated here in the ER. Patient not taking anything for dizziness or vertigo. Denies any vision or hearing changes. No slurred speech. No headache. Patient has a history of diabetes mellitus, COPD, hypertension, vertigo. Interestingly, patient believes that her blood sugar went to high because she did not eat all day then went to [facility] for dinner. Patient also states that she was not taking any of her medications for the last few months. Patient states she restarted them yesterday after her daughter advised her to. DIZZINESS, spinning sensation. No headache, no fever or chills, no changes in vision or hearing, no sore throat or difficulty with speech, no neck pain, no chest pain or shortness of breath, no abdominal pain, no nausea or vomiting, no changes in urination or bowel movements, no numbness or tingling, no extremity pain, no skin rashes or lesions. Ongoing and chronic gait disturbance which the patient relates to dizziness. Past medical, surgical, social, and family history reviewed. Note that the patient states after she fell she could not get up. Patient really denying any injury. - Related Data Home Medications Medication Instructions Recorded Confirmed sitaGLIPtin PHOS/metFORMIN HCL 50 mg PO BID 01/11/19 12/21/19 [Janumet 50-1,000 mg Tablet] Cetirizine HCl [Zyrtec] 10 mg PO DAILY 12/15/19 12/15/19 Clopidogrel [Plavix] 75 mg PO DAILY 12/15/19 12/21/19 Escitalopram [Lexapro] 10 mg PO DAILY 12/15/19 12/15/19 Metoprolol Tartrate [Lopressor] 50 mg PO BID 12/15/19 12/21/19 Multivitamins, Thera [Multivitamin 1 tab PO DAILY 12/15/19 12/21/19 (formulary)] Omeprazole [PriLOSEC] 40 mg PO QAM 12/15/19 12/21/19 Pioglitazone [Actos] 30 mg PO QAM 12/15/19 12/21/19 Vit C/E/Zn/Coppr/Lutein/Zeaxan 1 each PO DAILY 12/15/19 12/21/19 [Preservision Areds 2 Softgel] Previous Rx's Medication Instructions Recorded Aspirin 81 mg PO DAILY #30 chew 01/05/19 Atorvastatin [Lipitor] 80 mg PO HS #30 tab 01/05/19 Losartan [Cozaar] 100 mg PO DAILY #60 tab 01/05/19 Nitroglycerin Sl Tabs [Nitrostat] 0.4 mg SUBLINGUAL Q5M PRN #20 tab 01/05/19 amLODIPine [Norvasc] 10 mg PO DAILY #30 tab 01/05/19 hydrALAZINE HCL [Apresoline] 100 mg PO BID #120 tab 01/05/19 Albuterol Inhaler [Ventolin Hfa 1 puff INHALATION RT-TID #8 gm 12/07/21 Inhaler] dexAMETHasone [Decadron] 6 mg PO DAILY 4 Days #4 tablet 12/07/21 Allergies Allergy/AdvReac Type Severity Reaction Status Date / Time codeine AdvReac Vomiting Verified 03/09/21 06:54 metoclopramide HCl AdvReac Hallucinati Verified 03/09/21 06:54 [From Reglan] ons morphine AdvReac Vomiting Verified 03/09/21 06:54 ticagrelor [From Brilinta] AdvReac Nausea & Verified 03/09/21 06:54 Vomiting Review of Systems ROS Statement: Those systems with pertinent positive or pertinent negative responses have been documented in the HPI. ROS Other: All systems not noted in ROS Statement are negative. Past Medical History Past Medical History: COPD, Diabetes Mellitus, GERD/Reflux, Hyperlipidemia, Hypertension, Myocardial Infarction (NH) Additional Past Medical History / Comment(s): diarrhea on and off d/t metformin per pt, seasonal sinus problems. states no current RX for COPD Last Myocardial Infarction Date:: 01/02/19 History of Any Multi-Drug Resistant Organisms: None Reported Past Surgical History: Heart Catheterization With Stent, Tonsillectomy, Tubal Ligation Additional Past Surgical History / Comment(s): D & C, colonoscopy with cecal po lypectomy, bilateral cataract removals/lens implants. Past Anesthesia/Blood Transfusion Reactions: Postoperative Nausea & Vomiting (PONV) Additional Past Anesthesia/Blood Transfusion Reaction / Comment(s): had hallucinations with Reglan in post op Date of Last Stent Placement:: 01/02/19 Past Psychological History: Anxiety Smoking Status: Never smoker Past Alcohol Use History: None Reported Past Drug Use History: None Reported - Past Family History Mother Family Medical History: CVA/TIA, Diabetes Mellitus, Deep Vein Thrombosis (DVT) Additional Family Medical History / Comment(s): "blood clots in her legs when she was in her 40's from taking control". TIAs Father Family Medical History: Cancer, Congestive Heart Failure (CHF), Coronary Artery Disease (CAD), Diabetes Mellitus, Myocardial Infarction (NH) Additional Family Medical History / Comment(s): Father had a NH at the age of 54yrs. CA: skin ("tip top of his ear"). He of CHF at the age of 84 yrs. General Exam - General Exam Comments Initial Comments: Patient mildly hypertensive. Remainder of the vital signs are stable. Does not appear to be ill or toxic. Capillary refill less than 2 seconds. Moist mucous membranes. No mottling Limitations: no limitations General appearance: alert, in no apparent distress Head exam: Present: atraumatic, normocephalic, normal inspection Eye exam: Present: normal appearance, PERRL, EOMI. Absent: scleral icterus, conjunctival injection, periorbital swelling ENT exam: Present: normal exam, normal oropharynx, mucous membranes moist, normal external ear exam. Absent: mucous membranes dry Neck exam: Present: normal inspection, full ROM. Absent: tenderness, meningismus, lymphadenopathy Respiratory exam: Present: normal lung sounds bilaterally. Absent: respiratory distress, wheezes, rales, rhonchi, stridor Cardiovascular Exam: Present: regular rate, normal rhythm, normal heart sounds. Absent: systolic murmur, diastolic murmur, rubs, gallop, clicks GI/Abdominal exam: Present: soft, normal bowel sounds. Absent: distended, tenderness, guarding, rebound, rigid Extremities exam: Present: normal inspection, full ROM, normal capillary refill. Absent: tenderness, pedal edema, joint swelling, calf tenderness Back exam: Present: normal inspection Neurological exam: Present: alert, oriented X3, CN II-XII intact Expanded Patient oriented to: Present: person Speech: Present: fluid speech Cranial nerves: EOM's Intact: Normal, Gag Reflex: Normal, Tongue Deviation: Normal, Nystagmus: Normal, Facial Sensation: Normal, Facial Palsy with Forehead Movement: Normal, Facial Palsy without Forehead Movement: Normal Cerebellar function: Finger to Nose: Normal, Heel to Wolf: Normal Upper motor neuron: Farooq Neglect: Normal, Pronator Drift: Abnormal Right (Patient does have a hint of pronator drift with regard to the right hand), Babinski Sign: Normal, Sensory Extinction: Normal Motor strength exam: RUE: 5, LUE: 5, RLE: 5, LLE: 5 Eye Response: (4) open spontaneously Motor Response: (6) obeys commands Verbal Response: (5) oriented [place] Total: 15 Psychiatric exam: Present: normal affect, normal mood Skin exam: Present: warm, dry, intact, normal color. Absent: rash Course Vital Signs 04/28/22 04/28/22 04/28/22 23:21 23:25 23:55 Temperature 98.2 F 98 F Pulse Rate 76 75 Pulse Rate [ 69 Pulse Oximetery ] Respiratory 16 16 16 Rate Blood Pressure 147/81 Blood Pressure [Right Arm Sitting] Blood Pressure 139/67 [Right Arm Supine] O2 Sat by Pulse 97 98 97 Oximetry 04/29/22 04/29/22 04/29/22 00:00 00:59 01:11 Temperature 98.2 F Pulse Rate 69 Pulse Rate [ 70 Pulse Oximetery ] Respiratory 16 16 16 Rate Blood Pressure 134/68 Blood Pressure 140/69 [Right Arm Sitting] Blood Pressure [Right Arm Supine] O2 Sat by Pulse 98 97 Oximetry - Reevaluation(s) Reevaluation #1: 04/29/22 00:12 Received further history from the patient's daughter called. Apparently the patient has been getting confused at night, was not taking her medications appropriately until yesterday. Also was hallucinating that there were fleas in the house which apparently the daughter is adamant there are not. This does raise the suspicion of possible sundowning Reevaluation #2: 04/29/22 01:22 Patient reevaluated, possibly mildly improved. - Consultations Consultation #1: Case discussed with the hospitalist physician from [facility] hospitalist group, Dr. Wilkerson. Acute sepsis admission for further evaluation and treatment. Neurology consultation. EKG Findings - EKG Comments: EKG Findings:: EKG interpreted independently by me at 2353 revealed sinus rhythm with a rate of 71. Normal intervals. Left axis deviation. No evidence of significant ST or T-wave changes. Poor R-wave progression noted. Normal QRS morphology otherwise. When compared to the previous study from December 2021 there is no significant change. Medical Decision Making - Medical Decision Making Was pt. sent in by a medical professional or institution? @ -[no] Did you speak to anyone other than the patient for history? @ -[EMS, daughter] Did you review nursing and triage notes? @ -[Concur] Were old charts reviewed? @ -[Previous hospital records reviewed] Differential Diagnosis? @ -[Near syncope, CVA, ataxia, metabolic disturbance, electrolyte disturbance, cardiac etiology, myocardial infarction, this is not a all-inclusive list] EKG interpreted by me (3pts min.)? @ -[Interpreted by me] X-rays interpreted by me (1pt min.)? @ -[Independent interpretation by me] CT interpreted by me (1pt min.)? @ -[Interpreted by me, reviewed radiographic interpretation] Did you discuss the management of the patient with other professionals? @ -[ED attending physician, hospitalist physician, Dr. Wilkerson] Did you reconcile home meds? @ -[Yes] Was smoking cessation discussed for >3mins.? @ -[Not applicable] Was critical care preformed (if so, how long)? @ -[none] Were there social determinants of health that impacted care today? How? (Homeles sness, low income, unemployed, alcoholism, drug addiction, transportation, low edu. Level, literacy, decrease access to med. care, correction, rehab)? @ -Patient lives at home alone. Patient is a fall risk. Was there de-escalation of care discussed even if they declined? (Discuss DNR or withdrawal of care, Hospice)? @ -[Discuss DNR or withdrawal of care, Hospice?] What co-morbidities impacted this encounter? (DM, HTN, Smoking, COPD, CAD, Cancer, CVA, Hep., AIDS, mental health diagnosis, sleep apnea, morbid obesity)? @ -Diabetes, hypertension, cardiac disease, COPD Was patient admitted / discharged? @ -Patient was met at the hospital for near syncope, intractable vertigo, further evaluation, neurology consultation. All findings discussed with the patient. Patient was relatively stable throughout the course of stay here in the ER. Patient concurs with this treatment plan. Renal insufficiency with urinary tract infection. Patient started on antibiotics.Patient's chloride was 110, carbon dioxide level XVI, BUN 25 creatinine 1.36, glucose 275, phosphorus 5.2, alkaline phosphatase 172. Negative troponin. No EKG changes. Urinalysis consistent with urinary tract infection. We'll treat accordingly. Undiagnosed new problem with uncertain prognosis? @ - Progressive problem with uncertain prognosis Drug Therapy requiring intensive monitoring for toxicity (Heparin, Nitro, Insulin, Cardizem)? @ -[none] Were any procedures done? @ -[none] Diagnosis/symptom? @ -Vertigo, ambulatory difficulty, near syncope Acute, or Chronic, or Acute on Chronic? @ -Acute on chronic Uncomplicated (without systemic symptoms) or Complicated (systemic symptoms)? @ -Complicated Side effects of treatment? @ -[none] Exacerbation, Progression, or Severe Exacerbation] @ -[no] Poses a threat to life or bodily function? @ -[no] The case was discussed in detail with ED attending physician. Presentation, findings, treatment plan discussed in detail. Supervising physician Dr. Fong - Lab Data Result diagrams: 04/28/22 23:31 04/28/22 23:31 Lab Results 04/28/22 04/28/22 04/28/22 Range/Units 23:23 23:31 23:31 WBC 9.2 (3.8-10.6) k/uL RBC 5.28 (3.80-5.40) m/uL Hgb 15.4 (11.4-16.0) gm/dL Hct 43.7 (34.0-46.0) % MCV 82.8 (80.0-100.0) fL MCH 29.2 (25.0-35.0) pg MCHC 35.2 (31.0-37.0) g/dL RDW 14.3 (11.5-15.5) % Plt Count 235 (150-450) k/uL MPV 10.1 Neutrophils % 66 % Lymphocytes % 23 % Monocytes % 6 % Eosinophils % 2 % Basophils % 1 % Neutrophils # 6.1 (1.3-7.7) k/uL Lymphocytes # 2.1 (1.0-4.8) k/uL Monocytes # 0.5 (0-1.0) k/uL Eosinophils # 0.2 (0-0.7) k/uL Basophils # 0.1 (0-0.2) k/uL PT Cancelled INR Cancelled APTT 23.2 (22.0-30.0) sec Sodium (137-145) mmol/L Potassium (3.5-5.1) mmol/L Chloride (98-107) mmol/L Carbon Dioxide (22-30) mmol/L Anion Gap mmol/L BUN (7-17) mg/dL Creatinine (0.52-1.04) mg/dL Est GFR (CKD-EPI)AfAm (>60 ml/min/1.73 sqM) Est GFR (CKD-EPI)NonAf (>60 ml/min/1.73 sqM) Glucose (74-99) mg/dL POC Glucose (mg/dL) 259 H (70-110) mg/dL POC Glu Legal Billing Analyst ID Dmitry Amaro Calcium (8.4-10.2) mg/dL Phosphorus (2.5-4.5) mg/dL Magnesium (1.6-2.3) mg/dL Total Bilirubin (0.2-1.3) mg/dL AST (14-36) U/L ALT (4-34) U/L Alkaline Phosphatase (38-126) U/L Troponin I (0.000-0.034) ng/mL Total Protein (6.3-8.2) g/dL Albumin (3.5-5.0) g/dL Urine Color Urine Appearance (Clear) Urine pH (5.0-8.0) Ur Specific [place] (1.001-1.035) Urine Protein (Negative) Urine Glucose (UA) (Negative) Urine Ketones (Negative) Urine Blood (Negative) Urine Nitrite (Negative) Urine Bilirubin (Negative) Urine Urobilinogen (<2.0) mg/dL Ur Leukocyte Esterase (Negative) Urine RBC (0-5) /hpf Urine WBC (0-5) /hpf Urine WBC Clumps (None) /hpf Ur Squamous Epith Cells (0-4) /hpf Urine Bacteria (None) /hpf Urine Mucus (None) /hpf 04/28/22 04/28/22 04/29/22 Range/Units 23:31 23:31 00:10 WBC (3.8-10.6) k/uL RBC (3.80-5.40) m/uL Hgb (11.4-16.0) gm/dL Hct (34.0-46.0) % MCV (80.0-100.0) fL MCH (25.0-35.0) pg MCHC (31.0-37.0) g/dL RDW (11.5-15.5) % Plt Count (150-450) k/uL MPV Neutrophils % % Lymphocytes % % Monocytes % % Eosinophils % % Basophils % % Neutrophils # (1.3-7.7) k/uL Lymphocytes # (1.0-4.8) k/uL Monocytes # (0-1.0) k/uL Eosinophils # (0-0.7) k/uL Basophils # (0-0.2) k/uL PT INR APTT (22.0-30.0) sec Sodium 139 (137-145) mmol/L Potassium 4.8 (3.5-5.1) mmol/L Chloride 110 H (98-107) mmol/L Carbon Dioxide 16 L (22-30) mmol/L Anion Gap 13 mmol/L BUN 25 H (7-17) mg/dL Creatinine 1.36 H (0.52-1.04) mg/dL Est GFR (CKD-EPI)AfAm 44 (>60 ml/min/1.73 sqM) Est GFR (CKD-EPI)NonAf 38 (>60 ml/min/1.73 sqM) Glucose 275 H (74-99) mg/dL POC Glucose (mg/dL) (70-110) mg/dL POC Glu Legal Billing Analyst ID Calcium 9.0 (8.4-10.2) mg/dL Phosphorus 5.2 H (2.5-4.5) mg/dL Magnesium 1.7 (1.6-2.3) mg/dL Total Bilirubin 0.7 (0.2-1.3) mg/dL AST 31 (14-36) U/L ALT 19 (4-34) U/L Alkaline Phosphatase 172 H (38-126) U/L Troponin I <0.012 (0.000-0.034) ng/mL Total Protein 7.0 (6.3-8.2) g/dL Albumin 4.0 (3.5-5.0) g/dL Urine Color Light Yellow Urine Appearance Clear (Clear) Urine pH 5.0 (5.0-8.0) Ur Specific [place] 1.029 (1.001-1.035) Urine Protein Negative (Negative) Urine Glucose (UA) 4+ H (Negative) Urine Ketones Trace H (Negative) Urine Blood Trace H (Negative) Urine Nitrite Negative (Negative) Urine Bilirubin Negative (Negative) Urine Urobilinogen <2.0 (<2.0) mg/dL Ur Leukocyte Esterase Small H (Negative) Urine RBC 5 (0-5) /hpf Urine WBC 46 H (0-5) /hpf Urine WBC Clumps Rare H (None) /hpf Ur Squamous Epith Cells <1 (0-4) /hpf Urine Bacteria Rare H (None) /hpf Urine Mucus Rare H (None) /hpf Disposition Clinical Impression: Syncope, near, Vertigo, Confusion, Difficulty in walking, Hyperglycemia, Urinary tract infection Disposition: ADMITTED IP TO THIS [facility] Condition: Fair Is patient prescribed a controlled substance at d/c from ED?: No Referrals: Dale Harden MD [Primary Care Provider] - 1-2 days Time of Disposition: 01:08 Decision to Admit Reason: Admit from EC Decision Time: 01:08
[2022-04-28 23:58] LABS: Basophils # (A) 0.1 k/uL (0-0.2); Basophils % (A) 1 %; Eosinophils # (A) 0.2 k/uL (0-0.7); Eosinophils % (A) 2 %; HCT 43.7 % (34.0-46.0); HGB 15.4 gm/dL (11.4-16.0); Lymphocytes # (A) 2.1 k/uL (1.0-4.8); Lymphocytes % (A) 23 %; MCH 29.2 pg (25.0-35.0); MCHC 35.2 g/dL (31.0-37.0); MCV 82.8 fL (80.0-100.0); Mean Platelet Volume 10.1; Monocytes # (A) 0.5 k/uL (0-1.0); Monocytes % (A) 6 %; Neutrophils # (A) 6.1 k/uL (1.3-7.7); Neutrophils % (A) 66 %; Platelet Count 235 k/uL (150-450); RBC 5.28 m/uL (3.80-5.40); RDW 14.3 % (11.5-15.5); WBC 9.2 k/uL (3.8-10.6)
[2022-04-29 00:07] LABS: Magnesium 1.7 mg/dL (1.6-2.3); Phosphorus 5.2 mg/dL (2.5-4.5); Total Bilirubin 0.7 mg/dL (0.2-1.3)
[2022-04-29 00:19] LABS: Potassium 4.8 mmol/L (3.5-5.1)
--- NOTE | 2022-04-29 00:32 | CT ---
EXAMINATION TYPE: CT brain cspine wo con DATE OF EXAM: 04/28/2022 COMPARISON: CT brain 02/26/2022 HISTORY: fall Pain CT DLP: 1292.2 mGycm Automated exposure control for dose reduction was used. Images obtained of the brain and cervical spine with no contrast. There is cerebral cortical atrophy. There is no mass effect or midline shift. No sign of intracranial hemorrhage. Calvarium is intact. The skull base is intact. There is normal aeration of the mastoid s inuses. The cervical vertebra have normal alignment. There is degenerative disc space narrowing from C3 to T1 with mild spurring of the endplates. There is multilevel cervical hypertrophic facet arthropathy. No subluxation. Skull base is intact. IMPRESSION: Multilevel cervical spondylotic changes. No fracture seen. No acute bony abnormality. Cerebral atrophy. No acute intracranial abnormality. Brain unchanged compared to old exam.
--- NOTE | 2022-04-29 00:38 | XR ---
EXAMINATION TYPE: XR chest 1V portable DATE OF EXAM: 04/28/2022 COMPARISON: 12/07/2021 HISTORY: Weakness TECHNIQUE: FINDINGS: There is some minimal infiltrate in the left lower lobe behind the heart. The other lung fi elds are clear. There are chest leads. Bony thorax is intact. IMPRESSION: Minimal infiltrate left lower lobe. This appears new compared to old exam. Normal heart. No heart failure.
[2022-04-29 00:40] LABS: Appearance,Urine Clear (Clear); Bacteria,Urine Rare /hpf; Bilirubin,Urine Negative (Negative); Blood,Urine Trace (Negative); Color,Urine Light Yellow; Glucose,Urine (UA) 4+ (Negative); Ketones,Urine Trace (Negative); Leukocyte Esterase,Urine Small (Negative); Mucus,Urine Rare /hpf; Nitrite,Urine Negative (Negative); Protein,Urine Negative (Negative); RBC,Urine 5 /hpf (0-5); Specific Gravity,Urine 1.029 (1.001-1.035); Squamous Epithelial Cell,Urine <1 /hpf (0-4); Urobilinogen,Urine <2.0 mg/dL (<2.0); WBC,Urine 46 /hpf (0-5)
[2022-04-29] MEDS ORDERED: NALOXONE 0.4 MG/ML 1 ML VIAL IV PRN (01:17)
[2022-04-29] MEDS ORDERED: ONDANSETRON 4 MG/2 ML VIAL IVP PRN (01:17)
[2022-04-29] MEDS ORDERED: ACETAMINOPHEN TAB 325 MG TAB PO PRN (01:17)
[2022-04-29] MEDS ORDERED: DEXTROSE 50% SYRINGE 50 ML IVP PRN ×2 (01:21)
[2022-04-29] MEDS ORDERED: cefTRIAXone IN SWFI 1,000 MG/10 ML SYRINGE IVP STA (01:29)
[2022-04-29 01:45] LABS: Glucose,Whole Blood 195 mg/dL (70-110)
[2022-04-29] MEDS: ALBUTEROL NEBULIZED 2.5 MG/3 ML INHALATION SCH ×5 (02:21→21:16)
[2022-04-29 06:26] LABS: Glucose,Whole Blood 243 mg/dL (70-110)
[2022-04-29] MEDS: INSULIN ASPART (NovoLOG) 100 UNIT/ML VIAL SQ SCH ×4 (06:37→20:52)
[2022-04-29] MEDS: HEPARIN SODIUM,PORCINE/PF 5,000 UNIT/0.5 ML SYRINGE SQ SCH ×2 (08:28→20:53)
[2022-04-29] MEDS: PANTOPRAZOLE 40 MG TABLET PO SCH (08:28)
[2022-04-29] MEDS: ASPIRIN 81 MG PO SCH (08:28)
[2022-04-29 12:33] LABS: Glucose,Whole Blood 201 mg/dL (70-110)
[2022-04-29] MEDS: amLODIPine 10 MG TAB PO SCH (12:49)
--- NOTE | 2022-04-29 12:49 | P.CNNES ---
History of Present Illness Consult date: 04/29/22 Requesting physician: Michi Diaz Reason for Consult: near syncope, vertigo, gait difficulty History of Present Illness: This is a 77-year-old woman with history of diabetes, myocardial infarction, hypertension, hyperlipidemia who presented to the emergency department after a fall at home. Some of the history is obtained from the patient's nurse and the medical record. According to the patient she said that that she's been feeling dizzy and noticed right leg weakness since January 2022. Patient states that she feel dizzy with moving around but could not describe her dizziness. She denies of any nausea or vomiting. She does have ringing in both ears. She feels when she is walking she noticed that she's having right leg weakness. She denies of any neck pain or back pain. The seems that the patient the felt dizzy yesterday and she fell in her kitchen but she denies any loss of consciousness. She denies of any visual disturbance. She stated that the regarding her dizziness and she has been followed up with her primary care physician (Dr. Harden) and thought she had a recent MRI of the brain and he has been the managing her dizziness according to the patient. According to the nurse her daughter stated that that she's been having visual hallucination (seeing flees) recently and has not been taking her medication and somewhat confused. Patient denies history of seizures. Denies history of stroke. Some of the workup during his hospital visit consisted of: CBC with differential is unremarkable Chemistry panel is initial POC glucose is 259, creatinine is 1.36 BUN is 25, phosphorus is 5.2 which is slightly elevated in normal supposed to be between 2.5-4.5., AST and ALT is within normal limits as well as calcium. Urinalysis seems possible suggestive of urinary tract infection CT of the brain is reported as cerebral atrophy. No acute intracranial abnormality. Brain unchanged compared to old exam and that was in 02/26/2022. I personally reviewed the CT of the head and there is no acute subacute ischemia and there is known to protocol hemorrhage. I feel the patient generalized atrophy is normal for age. CT cervical spine was reported as multilevel cervical spondylitic changes there is no fracture. No acute bony abnormality. Review of Systems Review of system: The 12 point system was reviewed and apparent positive and negative per HPI. Past Medical History Past Medical History: COPD, Diabetes Mellitus, GERD/Reflux, Hyperlipidemia, Hypertension, Myocardial Infarction ([place]) Additional Past Medical History / Comment(s): diarrhea on and off d/t metformin per pt, seasonal sinus problems. states no current RX for COPD Last Myocardial Infarction Date:: 01/02/19 History of Any Multi-Drug Resistant Organisms: None Reported Past Surgical History: Heart Catheterization With Stent, Tonsillectomy, Tubal Ligation Additional Past Surgical History / Comment(s): D & C, colonoscopy with cecal polypectomy, bilateral cataract removals/lens implants. 2 cardiac stents. Past Anesthesia/Blood Transfusion Reactions: Postoperative Nausea & Vomiting (PONV) Additional Past Anesthesia/Blood Transfusion Reaction / Comment(s): had hallucinations with Reglan in post op Date of Last Stent Placement:: 2019 Past Psychological History: Anxiety Smoking Status: Never smoker Past Alcohol Use History: None Reported Past Drug Use History: None Reported - Past Family History Mother Family Medical History: CVA/TIA, Diabetes Mellitus, Deep Vein Thrombosis (DVT) Additional Family Medical History / Comment(s): "blood clots in her legs when she was in her 40's from taking control". TIAs Father Family Medical History: Cancer, Congestive Heart Failure (CHF), Coronary Artery Disease (CAD), Diabetes Mellitus, Myocardial Infarction ([place]) Additional Family Medical History / Comment(s): Father had a [place] at the age of 54yrs. CA: skin ("tip top of his ear"). He of CHF at the age of 84 yrs. Medications and Allergies Home Medications Medication Instructions Recorded Confirmed Type Aspirin 81 mg PO DAILY #30 chew 01/05/19 12/21/19 Rx Atorvastatin [Lipitor] 80 mg PO HS #30 tab 01/05/19 12/21/19 Rx Losartan [Cozaar] 100 mg PO DAILY #60 tab 01/05/19 12/21/19 Rx Nitroglycerin Sl Tabs [Nitrostat] 0.4 mg SUBLINGUAL Q5M PRN #20 tab 01/05/19 12/21/19 Rx amLODIPine [Norvasc] 10 mg PO DAILY #30 tab 01/05/19 12/21/19 Rx hydrALAZINE HCL [Apresoline] 100 mg PO BID #120 tab 01/05/19 12/21/19 Rx sitaGLIPtin PHOS/metFORMIN HCL 50 mg PO BID 01/11/19 12/21/19 History [Janumet 50-1,000 mg Tablet] Cetirizine HCl [Zyrtec] 10 mg PO DAILY 12/15/19 12/15/19 History Clopidogrel [Plavix] 75 mg PO DAILY 12/15/19 12/21/19 History Escitalopram [Lexapro] 10 mg PO DAILY 12/15/19 12/15/19 History Metoprolol Tartrate [Lopressor] 50 mg PO BID 12/15/19 12/21/19 History Multivitamins, Thera [Multivitamin 1 tab PO DAILY 12/15/19 12/21/19 History (formulary)] Omeprazole [PriLOSEC] 40 mg PO QAM 12/15/19 12/21/19 History Pioglitazone [Actos] 30 mg PO QAM 12/15/19 12/21/19 History Vit C/E/Zn/Coppr/Lutein/Zeaxan 1 each PO DAILY 12/15/19 12/21/19 History [Preservision Areds 2 Softgel] Albuterol Inhaler [Ventolin Hfa 1 puff INHALATION RT-TID #8 gm 12/07/21 Rx Inhaler] dexAMETHasone [Decadron] 6 mg PO DAILY 4 Days #4 tablet 12/07/21 Rx Allergies Allergy/AdvReac Type Severity Reaction Status Date / Time codeine AdvReac Vomiting Verified 03/09/21 06:54 metoclopramide HCl AdvReac Hallucinati Verified 03/09/21 06:54 [From Reglan] ons morphine AdvReac Vomiting Verified 03/09/21 06:54 ticagrelor [From Brilinta] AdvReac Nausea & Verified 03/09/21 06:54 Vomiting Physical Examination - Vital Signs Vital Signs: Vital Signs Temp Pulse Pulse Resp BP BP BP 04/29/22 07:09 04/29/22 03:42 70 16 04/29/22 03:10 97.7 F 73 16 151/69 04/29/22 02:00 98.4 F 72 16 150/104 04/29/22 01:11 69 16 134/68 04/29/22 00:59 16 04/29/22 00:00 98.2 F 70 16 140/69 04/28/22 23:55 98 F 69 16 139/67 04/28/22 23:25 75 16 04/28/22 23:21 98.2 F 76 16 147/81 Pulse Ox 04/29/22 07:09 95 04/29/22 03:42 04/29/22 03:10 95 04/29/22 02:00 97 04/29/22 01:11 97 04/29/22 00:59 04/29/22 00:00 98 04/28/22 23:55 97 04/28/22 23:25 98 04/28/22 23:21 97 Intake and Output 04/28/22 04/29/22 04/29/22 22:59 06:59 14:59 Other: Voiding Method Bedside Commode # Voids 2 Weight 74.843 kg GENERAL: The patient is lying in bed and is not in acute distress. CHEST: The heart rate is regular rate rhythm. No murmurs to auscultation. LUNG: Clear to auscultation bilaterally no wheezing noted throughout. Not labored breathing. ABDOMEN/GI: Bowel sounds present in all 4 quadrants. No tenderness to palpation throughout. NEUROLOGICAL: Higher mental function: The patient is awake, alert, oriented to self, place and time. Patient is following commands. No aphasia and no neglect. Cranial nerves: The pupils are round, equal and reactive to light and accommodation. Visual huynh are full to confrontation throughout. Extraocular movement is intact no nystagmus is noted. Facial sensation is normal to touch throughout. The facial strength is normal throughout. Hearing is normal bilaterally to hand rub. Tongue is midline and moved [id number] without any difficulty. No dysarthria is noted. Shoulder shrug is normal bilaterally. Motor: The strength is right hip is 4+ to 5-, right knee is 4-4+, ankle. Otherwise rest are 5/5. 5 over 5 throughout. Normal tone and bulk. Cerebellum: Normal finger to nose heel to chin bilaterally. Sensation: Sensation is normal to touch throughout. Reflexes (right/left): 2+ uppers while lowers are 1+. Plantars are mute bilaterally. Results - Laboratory Findings CBC and BMP: 04/28/22 23:31 04/28/22 23:31 Abnormal Lab Findings: Abnormal Labs 04/28/22 04/28/22 04/28/22 23:23 23:31 23:31 Chloride 110 H Carbon Dioxide 16 L BUN 25 H Creatinine 1.36 H Glucose 275 H POC Glucose (mg/dL) 259 H Hemoglobin A1c 12.2 H Phosphorus 5.2 H Alkaline Phosphatase 172 H Urine Glucose (UA) Urine Ketones Urine Blood Ur Leukocyte Esterase Urine WBC Urine WBC Clumps Urine Bacteria Urine Mucus 04/29/22 04/29/22 04/29/22 00:10 01:44 06:24 Chloride Carbon Dioxide BUN Creatinine Glucose POC Glucose (mg/dL) 195 H 243 H Hemoglobin A1c Phosphorus Alkaline Phosphatase Urine Glucose (UA) 4+ H Urine Ketones Trace H Urine Blood Trace H Ur Leukocyte Esterase Small H Urine WBC 46 H Urine WBC Clumps Rare H Urine Bacteria Rare H Urine Mucus Rare H Assessment and Plan Assessment: Recent fall without loss of consciousness with dizziness since 01/2022 as well right leg weakness for the same duration. Rule out any severe lumbar spondylosis causes her right leg weakness vs stroke not seen on CT. Visual hallucination with some confusion at home. Rule out any central cause vs metabolic encephalopathy (hyperphosphatemia and uncontrolled DM) vs possible underlying cognitive impairement/dementia. Currently alert, oriented X4. Possible acute UTI DM and is uncontrolled (HbA1c 12.2) Slight elevated hyperphosphatemia Acute kidney insufficiency History of myocardial infarction Plan: I ordered MRI lumbar spine to rule out any severe lumbar spondylosis explaining her right leg weakness. Patient stated she had a recent MRI and it does not seem she had it over our facility and will try to find out if she had a somewhat else will try to obtain a report if not then now recommend pursuing MRI the brain. Ordered routine EEG because of her confusion to rule out any underlying seizure seems unlikely Ordered TSH, vitamin B12, folate. Recommend orthostatic vitals Continue neuro checks PT is consulted as well as I consulted OT We'll defer the rest of the medical management to the primary team. The plan was discussed with the patient as well as his nurse Thank you for the consultation Dr. Bertrand will start neurology service tomorrow a.m. Time with Patient: Greater than 30
[2022-04-29 17:20] LABS: Glucose,Whole Blood 222 mg/dL (70-110)
[2022-04-29 19:38] LABS: Glucose,Whole Blood 337 mg/dL (70-110)
--- NOTE | 2022-04-29 19:41 | P.HPIM ---
History of Present Illness H&P Date: 04/29/22 Chief Complaint: Status post fall Ms. Jones is a 77-year-old female with a past medical history of COPD, diabetes mellitus, hypertension, hyperlipidemia, CAD admitted to the hospital after having a fall. Patient states that she was having generalized weakness and was feeling very thirsty for the past few days and when she tried to get up and go to the bathroom her right leg buckled up and she had a fall on the bathroom floor. Patient denies having any loss of consciousness or visual disturbance. She mentions that she has been following with her primary care physician Dr. Harden regarding dizziness and recently had an MRI. As per discussion with the nursing staff, her daughter complained that the patient was having some visual hallucinations that she has been seeing fleas. On having a discussion with the patient, she said she has been dealing with fleas in her house and also showed some bite oreilly on her upper and lower extremities when questioned about this. Patient also mentions about being started on a statin recently, she felt that this was giving her pain in her lower extremities so she stopped taking it. As she was not sure that it could be the statin, so she stopped taking all her medications for few months and recently decided to start one medication at a time. But she is not sure what she has missed and what she is taking currently. In the ED at the time of admission patient's vital signs temperature 98.2 heart rate 76 respiratory 16, blood pressure 147/81 saturating at 97% on room air. On reviewing the patient's labs white count of 9.2 hemoglobin 15.4 platelets 235. Sodium 139 potassium 4.8 chloride 110 bicarb 16 BUN 25 creatinine 1.36 blood sugars around 200s. Urine analysis showed 4+ glucose with small leukocyte e sterase and 46 WBCs. Patient also had a CT of the head that was negative for any acute intracranial abnormality. And an EKG showing normal sinus rhythm. Review of Systems REVIEW OF SYSTEMS: PSYCH: No anxiety or depression NEURO:No c/o weakness of the extremties or speech abnormalities. HEMATOLOGIC: No history of easy bleeding and bruising . No recent infections . RESPIRATORY: No cough, No SOB, No chest discomfort. 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 GI: No abdominal pain, Nausea or vomiting. No constipation or diarrhea. Past Medical History Past Medical History: COPD, Diabetes Mellitus, GERD/Reflux, Hyperlipidemia, Hypertension, Myocardial Infarction ([place]) Additional Past Medical History / Comment(s): diarrhea on and off d/t metformin per pt, seasonal sinus problems. states no current RX for COPD Last Myocardial Infarction Date:: 01/02/19 History of Any Multi-Drug Resistant Organisms: None Reported Past Surgical History: Heart Catheterization With Stent, Tonsillectomy, Tubal Ligation Additional Past Surgical History / Comment(s): D & C, colonoscopy with cecal polypectomy, bilateral cataract removals/lens implants. 2 cardiac stents. Past Anesthesia/Blood Transfusion Reactions: Postoperative Nausea & Vomiting (PONV) Additional Past Anesthesia/Blood Transfusion Reaction / Comment(s): had hallucinations with Reglan in post op Date of Last Stent Placement:: 2019 Past Psychological History: Anxiety Smoking Status: Never smoker Past Alcohol Use History: None Reported Past Drug Use History: None Reported - Past Family History Mother Family Medical History: CVA/TIA, Diabetes Mellitus, Deep Vein Thrombosis (DVT) Additional Family Medical History / Comment(s): "blood clots in her legs when she was in her 40's from taking control". TIAs Father Family Medical History: Cancer, Congestive Heart Failure (CHF), Coronary Artery Disease (CAD), Diabetes Mellitus, Myocardial Infarction ([place]) Additional Family Medical History / Comment(s): Father had a [place] at the age of 54yrs. CA: skin ("tip top of his ear"). He of CHF at the age of 84 yrs. Medications and Allergies Home Medications Medication Instructions Recorded Confirmed Type Aspirin 81 mg PO DAILY #30 chew 01/05/19 04/29/22 Rx Losartan [Cozaar] 100 mg PO DAILY #60 tab 01/05/19 04/29/22 Rx Nitroglycerin Sl Tabs [Nitrostat] 0.4 mg SUBLINGUAL Q5M PRN #20 tab 01/05/19 04/29/22 Rx amLODIPine [Norvasc] 10 mg PO DAILY #30 tab 01/05/19 04/29/22 Rx hydrALAZINE HCL [Apresoline] 100 mg PO BID #120 tab 01/05/19 04/29/22 Rx sitaGLIPtin PHOS/metFORMIN HCL 50 mg PO BID 01/11/19 04/29/22 History [Janumet 50-1,000 mg Tablet] Metoprolol Tartrate [Lopressor] 50 mg PO BID 12/15/19 04/29/22 History Omeprazole [PriLOSEC] 40 mg PO BID 12/15/19 04/29/22 History Pioglitazone [Actos] 30 mg PO DAILY 12/15/19 04/29/22 History Empagliflozin [Jardiance] 25 mg PO DAILY 04/29/22 04/29/22 History Ezetimibe [Zetia] 10 mg PO DAILY 04/29/22 04/29/22 History Allergies Allergy/AdvReac Type Severity Reaction Status Date / Time codeine AdvReac Vomiting Verified 03/09/21 06:54 metoclopramide HCl AdvReac Hallucinati Verified 03/09/21 06:54 [From Reglan] ons morphine AdvReac Vomiting Verified 03/09/21 06:54 ticagrelor [From Brilinta] AdvReac Nausea & Verified 03/09/21 06:54 Vomiting Physical Exam Vitals: Vital Signs Temp Pulse Pulse Resp BP BP BP 04/29/22 08:00 70 16 04/29/22 07:09 04/29/22 07:00 98.1 F 72 16 04/29/22 03:42 70 16 04/29/22 03:10 97.7 F 73 16 151/69 04/29/22 02:00 98.4 F 72 16 150/104 04/29/22 01:11 69 16 134/68 04/29/22 00:59 16 04/29/22 00:00 98.2 F 70 16 140/69 04/28/22 23:55 98 F 69 16 139/67 04/28/22 23:25 75 16 04/28/22 23:21 98.2 F 76 16 147/81 BP Pulse Ox 04/29/22 08:00 04/29/22 07:09 95 04/29/22 07:00 174/82 96 04/29/22 03:42 04/29/22 03:10 95 04/29/22 02:00 97 04/29/22 01:11 97 04/29/22 00:59 04/29/22 00:00 98 04/28/22 23:55 97 04/28/22 23:25 98 04/28/22 23:21 97 Intake and Output 04/28/22 04/29/22 04/29/22 22:59 06:59 14:59 Intake Total 200 Balance 200 Intake: Oral 200 Other: Voiding Method Bedside Commode Bedside Commode # Voids 2 Weight 74.843 kg PHYSICAL EXAM GEN. APPEARANCE: alert, in no apparent distress HEAD EXAM: atraumatic, normocephalic, normal inspection EYE EXAM: normal appearance, PERRL, EOMI. ENT EXAM: normal exam, mucous membranes moist NECK EXAM: normal inspection. RESPIRATORY EXAM: normal lung sounds bilaterally. No wheeze or crackles CARDIOVASCULAR EXAM: regular rate, normal rhythm, normal heart sounds. GI/ABDOMINAL EXAM: soft, normal bowel sounds. Nontender EXTREMITIES EXAM: No edema NEUROLOGICAL EXAM: alert, oriented X3 PSYCHIATRIC EXAM: normal affect, normal mood SKIN EXAM: Insect bite oreilly seen on both upper and lower extremities and also few bite oreilly on her back Results CBC & Chem 7: 04/28/22 23:31 04/28/22 23:31 Labs: Abnormal Lab Results - Last 24 Hours (Table) 04/28/22 04/28/22 04/28/22 Range/Units 23:23 23:31 23:31 Chloride 110 H (98-107) mmol/L Carbon Dioxide 16 L (22-30) mmol/L BUN 25 H (7-17) mg/dL Creatinine 1.36 H (0.52-1.04) mg/dL Glucose 275 H (74-99) mg/dL POC Glucose (mg/dL) 259 H (70-110) mg/dL Hemoglobin A1c 12.2 H (0.0-6.0) % Phosphorus 5.2 H (2.5-4.5) mg/dL Alkaline Phosphatase 172 H (38-126) U/L Urine Glucose (UA) (Negative) Urine Ketones (Negative) Urine Blood (Negative) Ur Leukocyte Esterase (Negative) Urine WBC (0-5) /hpf Urine WBC Clumps (None) /hpf Urine Bacteria (None) /hpf Urine Mucus (None) /hpf 04/29/22 04/29/22 04/29/22 Range/Units 00:10 01:44 06:24 Chloride (98-107) mmol/L Carbon Dioxide (22-30) mmol/L BUN (7-17) mg/dL Creatinine (0.52-1.04) mg/dL Glucose (74-99) mg/dL POC Glucose (mg/dL) 195 H 243 H (70-110) mg/dL Hemoglobin A1c (0.0-6.0) % Phosphorus (2.5-4.5) mg/dL Alkaline Phosphatase (38-126) U/L Urine Glucose (UA) 4+ H (Negative) Urine Ketones Trace H (Negative) Urine Blood Trace H (Negative) Ur Leukocyte Esterase Small H (Negative) Urine WBC 46 H (0-5) /hpf Urine WBC Clumps Rare H (None) /hpf Urine Bacteria Rare H (None) /hpf Urine Mucus Rare H (None) /hpf Microbiology - Last 24 Hours (Table) 04/29/22 00:10 Urine Culture - Preliminary Urine,Voided Thrombosis Risk Factor Assmnt - Choose All That Apply Each Factor Represents 1 point: Abnormal pulmonary function (COPD), Obesity (BMI >25) Each Risk Factor Represents 3 Points: Age 75 years or older Thrombosis Risk Factor Assessment Total Risk Factor Score: 5 Thrombosis Risk Factor Assessment Level: High Risk Assessment and Plan Assessment: ASSESSMENT Status post fall Chronic dizziness Poorly controlled diabetes with A1c of 12.2 Acute kidney injury - pre renal -dehydration Possible UTI Vitamin B12 deficiency Elevated alkaline phosphatase Hypertension Hyperlipidemia GERD PLAN: Patient had a CAT scan of the head that was negative for any acute intracranial process. The fall she she had was because of buckling of the right knee. MRI of the lumbar spine has been ordered by neurology. Work-up done so far showed B12 deficiency, will supplement. Continue with ceftriaxone for possible UTI until finalization of urinary cultures. Continue with IV fluid r esuscitation. Patient has been started on insulin for glycemic control. GI prophylaxis with Protonix. DVT prophylaxis with heparin in place. We will repeat electrolytes for tomorrow morning. The treatment plan was discussed with the patient in detail. Further recommendations to follow depending on the progress of the patient.
[2022-04-29] MEDS ORDERED: CYANOCOBALAMIN 1,000 MCG/ML 1 ML VIAL IM ONE (20:30)
[2022-04-29] MEDS: METOPROLOL TARTRATE 50 MG TAB PO SCH (20:52)
[2022-04-30 06:41] LABS: Glucose,Whole Blood 225 mg/dL (70-110)
[2022-04-30] MEDS: INSULIN ASPART (NovoLOG) 100 UNIT/ML VIAL SQ SCH ×4 (06:52→23:48)
[2022-04-30] MEDS: ALBUTEROL NEBULIZED 2.5 MG/3 ML INHALATION SCH ×4 (07:26→20:10)
[2022-04-30] MEDS: HEPARIN SODIUM,PORCINE/PF 5,000 UNIT/0.5 ML SYRINGE SQ SCH ×2 (08:59→21:07)
[2022-04-30] MEDS: amLODIPine 10 MG TAB PO SCH (09:00)
[2022-04-30] MEDS: ASPIRIN 81 MG PO SCH (09:00)
[2022-04-30] MEDS: METOPROLOL TARTRATE 50 MG TAB PO SCH ×2 (09:00→21:08)
[2022-04-30] MEDS: PANTOPRAZOLE 40 MG TABLET PO SCH (09:00)
[2022-04-30] MEDS: EZETIMIBE 10 MG TAB PO SCH (09:00)
[2022-04-30 09:27] LABS: Basophils # (A) 0.05 X 10*3/uL (0.00-0.10); Basophils % (A) 0.8 %; Eosinophils # (A) 0.18 X 10*3/uL (0.04-0.35); HCT 38.9 % (37.2-46.3); HGB 12.2 g/dL (12.0-15.0); Immature Grans, Automated 0.5 %; Lymphocytes # (A) 2.43 X 10*3/uL (0.90-5.00); Lymphocytes % (A) 39.8 %; MCH 25.8 pg (27.0-32.0); MCHC 31.4 g/dL (32.0-37.0); MCV 82.2 fL (80.0-97.0); Mean Platelet Volume 12.7 fL (9.5-12.2); Monocytes # (A) 0.55 X 10*3/uL (0.20-1.00); NRBC Per 100 WBC 0 /100 WBCS (0.0-0.0); Neutrophils # (A) 2.86 X 10*3/uL (1.80-7.70); Neutrophils % (A) 46.9 %; Platelet Count 207 X 10*3/uL (140-440); RBC 4.73 X 10*6/uL (4.10-5.20); RDW 14.7 % (11.5-14.5)
[2022-04-30 09:29] LABS: African American GFR (CKD) 63.8 (60.0-200.0); Albumin 3.9 g/dL (3.8-4.9); Albumin/Globulin Ratio 1.63 (1.60-3.17); Calcium 9.3 mg/dL (8.7-10.3); Globulin 2.4 g/dL (1.6-3.3); Magnesium 1.8 mg/dL (1.5-2.4); Non-African American GFR(CKD) 55.1 (60.0-200.0); Potassium 4.8 mmol/L (3.5-5.5); Total Bilirubin 0.4 mg/dL (0.30-1.20); Total Protein 6.3 g/dL (6.2-8.2)
--- NOTE | 2022-04-30 12:00 | MR ---
EXAMINATION TYPE: MR lumbar spine wo con DATE OF EXAM: 04/30/2022 11:52 AM COMPARISON: None. CLINICAL INDICATION:Female, 77 years old with history of right leg weakness; TECHNIQUE: Multi planar, multi sequence imaging was performed utilizing: T1-weighted, T2-weighted, a nd turbo inversion recovery imaging of the lumbar spine. IV Contrast: None. FINDINGS: Alignment: The lumbar vertebral bodies have preserved heights. Grade 1 anterolisthesis of L3 on L4 an d L4 and L5. Cord: The conus medullaris and the distal spinal cord appear unremarkable with regards to their signa l intensity and morphology. Bones/Discs: No evidence of abnormal bone marrow signal on inversion recovery sequences. Multilevel d egenerative disc disease is noted and most pronounced at the L3-L5. Multilevel disc desiccation is pr esent. Lower thoracic spine visualized demonstrates disc bulging without evidence for significant spinal can al stenosis. L1-L2: No evidence of significant spinal canal stenosis or neural foraminal stenosis. L2-L3: Disc bulge and facet joint arthropathy with mild to moderate spinal canal stenosis. An mild bi lateral neural foraminal stenosis. L3-L4: Disc uncovering from grade 1 anterolisthesis with severe spinal canal stenosis. Facet joint ar thropathy with mild to moderate bilateral neural foraminal stenosis. There is bunching of the cauda e quina. L4-L5: Disc bulge and facet joint arthropathy without spinal canal and mild bilateral neural foramina l stenosis. L5-S1: Disc bulge and facet joint arthropathy without spinal canal and mild bilateral neural foramina l stenosis. IMPRESSION: 1. L3-L4 grade 1 anterolisthesis with severe spinal canal stenosis. 2. Multilevel disc degeneration changes and osteoarthritic changes with scattered mild to moderate n eural foraminal stenosis.
[2022-04-30 12:19] VITALS: BMI 25.8
[2022-04-30 12:49] LABS: Glucose,Whole Blood 233 mg/dL (70-110)
[2022-04-30] MEDS ORDERED: CYANOCOBALAMIN 1,000 MCG/ML 1 ML VIAL IM ONE (13:37)
[2022-04-30] MEDS: FOLIC ACID 1 MG TAB PO SCH (14:03)
--- NOTE | 2022-04-30 14:59 | P.PN ---
Subjective Progress Note Date: 04/30/22 Patient initially seen by Dr. Jefferson Granger. Please refer to his note for details. Patient is a 77-year-old female with dizziness and recent fall. On examination Dr. Granger felt patient has right lower extremity weakness. MRI of the lumbar spine was ordered. EEG was ordered by Dr. Granger. Patient states she has history of vertigo since summer. When she turns around, she feels dizzy. In July 2021 she remembers that if she would be working on the bumpy area of her garden, or if she steps on a wavy area, she would lose balance and fall. Patient states that in spring, she fell face forward while she was stepping on the curb. Patient states she has history of chronic low back pain for at least 2 years. She feels her right leg is also weak for last 2 years. The back pain could be 10/10 when she is working in the yard. Sometimes the pain does go away. Objective - Vital Signs Vital signs: Vital Signs Temp 98.0 F 04/30/22 07:00 Pulse 68 04/30/22 07:00 Resp 18 04/30/22 07:00 BP 176/93 04/30/22 07:00 Pulse Ox 97 04/30/22 07:00 FiO2 Intake & Output 04/29/22 04/30/22 04/30/22 18:59 06:59 18:59 Intake Total 400 Balance 400 Weight 74.843 kg Intake: Oral 400 Other: Voiding Method Bedside Commode Bedside Commode # Voids 1 3 1 - Exam Patient's mental status, speech and language functions are normal. Cranial nerves are normal. She is hard of hearing. Muscle strength is normal in arms and legs. Reflexes are 1 at the knees, 0 ankles plantars are flat. - Labs CBC & Chem 7: 04/30/22 03:38 04/30/22 03:38 Labs: Abnormal Lab Results - Last 24 Hours (Table) 04/29/22 04/29/22 04/29/22 Range/Units 10:19 17:19 19:36 MCH (27.0-32.0) pg MCHC (32.0-37.0) g/dL RDW (11.5-14.5) % MPV (9.5-12.2) fL Chloride (96-109) mmol/L Est GFR (CKD-EPI)NonAf (60.0-200.0) Glucose (70-110) mg/dL POC Glucose (mg/dL) 222 H 337 H (70-110) mg/dL Vitamin B12 152.0 L (200.0-944.0) pg/mL 04/30/22 04/30/22 04/30/22 Range/Units 03:38 03:38 06:39 MCH 25.8 L (27.0-32.0) pg MCHC 31.4 L (32.0-37.0) g/dL RDW 14.7 H (11.5-14.5) % MPV 12.7 H (9.5-12.2) fL Chloride 110 H (96-109) mmol/L Est GFR (CKD-EPI)NonAf 55.1 L (60.0-200.0) Glucose 192 H (70-110) mg/dL POC Glucose (mg/dL) 225 H (70-110) mg/dL Vitamin B12 (200.0-944.0) pg/mL 04/30/22 Range/Units 12:48 MCH (27.0-32.0) pg MCHC (32.0-37.0) g/dL RDW (11.5-14.5) % MPV (9.5-12.2) fL Chloride (96-109) mmol/L Est GFR (CKD-EPI)NonAf (60.0-200.0) Glucose (70-110) mg/dL POC Glucose (mg/dL) 233 H (70-110) mg/dL Vitamin B12 (200.0-944.0) pg/mL Microbiology - Last 24 Hours (Table) 04/29/22 00:10 Urine Culture - Final Urine,Voided 04/29/22 00:15 Blood Culture - Preliminary Blood No Growth after 24 hours 04/29/22 00:30 Blood Culture - Preliminary Blood No Growth after 24 hours Assessment and Plan Assessment: Gait imbalance with tendency to fall. Patient has suffered from frequent falls. Etiology multifactorial, as patient has been found to have severe lumbar spinal stenosis at L3-4 level, and B12 deficiency Subjective right leg weakness. No significant weakness noted on examination today. Probable due to spinal stenosis. Visual hallucinations with some confusion at home, probable due to mild deli rium. Rule out any central cause vs metabolic encephalopathy (hyperphosphatemia and uncontrolled DM) vs possible underlying cognitive impairement/dementia. Currently alert, oriented X4. Vitamin B12 deficiency. Possible acute UTI DM and is uncontrolled (HbA1c 12.2) Slight elevated hyperphosphatemia Acute kidney insufficiency History of myocardial infarction Plan: MRI lumbar spine revealed L3-L4 grade 1 anterolisthesis with severe spinal canal stenosis. I personally reviewed MRI, I agree with the findings. We will consult orthopedics spine. EEG was performed, which is normal awake and drowsy. No epileptiform activity was seen. TSH 2.25 normal, vitamin B12 very low 152, folate borderline 8.7. Patient has received B12 injection yesterday. We will give another vitamin B12 injection 1000 mcg IM daily for 2 days. Thereafter patient should receive B12 injection 1000 g IM weekly for 4 weeks and then twice a month. Also will start folate 1 mg daily. Recommend orthostatic vitals, as per Dr. Granger. Continue neuro checks PT and OT evaluate gait. Discussed with primary physician in detail.
[2022-04-30 16:39] LABS: Glucose,Whole Blood 157 mg/dL (70-110)
--- NOTE | 2022-04-30 20:13 | EEG ---
ELECTROENCEPHALOGRAM REPORT PREAMBLE: This is a 77-year-old female, who came to the hospital after a fall at home. The patient has been feeling dizzy and noticed some right-sided weakness since January. The patient has history of diabetes. CURRENT MEDICATIONS: 1. Norvasc. 2. Aspirin. 3. Zetia. 4. NovoLog. 5. Lopressor. 6. Protonix. EEG FINDINGS: This is a 21-channel digital EEG recorded with video competent, utilizing 10/20 [employer] System with referential and bipolar montages. Background consists of well-developed, well-regulated, moderate-voltage activity in 8 to 9 Hz alpha. Background is posterior dominant and reactive to eye opening and closing. Photic stimulation was not performed. Drowsiness was seen with appearance of bilaterally symmetric theta frequency rhythm. Some stage II sleep was attained with presence of sleep spindles. No focal or generalized epileptiform activity was seen. IMPRESSION: This is a normal EEG during wakefulness, drowsiness, and brief stage II sleep. No focal, lateralized, or epileptiform activity was seen. MMODL / IJN: [id number] /
[2022-04-30 23:17] LABS: Glucose,Whole Blood 226 mg/dL (70-110)
--- NOTE | 2022-05-01 00:22 | P.PN ---
Subjective Progress Note Date: 04/30/22 Principal diagnosis: s/p Fall Ms. Jones is a 77-year-old female with a past medical history of COPD, diabetes mellitus, hypertension, hyperlipidemia, CAD admitted to the hospital after having a fall. She was evaluated by neurology and they think it is most likely because of her leg giving away and ordered an MRI of the lumbar spine which showed severe spinal stenosis. Today the patient is comfortably sitting in a chair by the bedside appears to be no acute distress. Patient states that she still feels dizzy when she turns around. She denies any chest pain or palpitations. No cough or difficulty in breathing. Nominal pain nausea vomiting or diarrhea. Patient states that she has chronic low back pain ongoing for the past 2 to 3 years along with weakness in the right lower extremity. Today the patient's vital signs temperature of 98 heart rate of 68 respiratory rate 18 blood pressure 176. 93 saturating at 97% on room air reviewing her labs from this morning white count of 6.1 hemoglobin 12.2 platelets of 207. Sodium 141 potassium 4.8 chloride 110 bicarb 20 BUN 99 creatinine of 1. Objective - Vital Signs Vital signs: Vital Signs Temp 97.9 F 04/30/22 14:56 Pulse 64 04/30/22 14:56 Resp 18 04/30/22 14:56 BP 164/87 04/30/22 14:56 Pulse Ox 92 L 04/30/22 15:46 FiO2 Intake & Output 04/30/22 04/30/22 05/01/22 06:59 18:59 06:59 Intake Total 200 Balance 200 Weight 74.843 kg Intake: Oral 200 Other: Voiding Method Bedside Commode # Voids 3 3 - Exam PHYSICAL EXAM GEN. APPEARANCE: alert, in no apparent distress RESPIRATORY EXAM: normal lung sounds bilaterally. No wheeze or crackles CARDIOVASCULAR EXAM: regular rate, normal rhythm, normal heart sounds. GI/ABDOMINAL EXAM: soft, normal bowel sounds. Nontender EXTREMITIES EXAM: No edema NEUROLOGICAL EXAM: alert, oriented X3 SKIN EXAM: Insect bite oreilly seen on both upper and lower extremities and also few bite oreilly on her back - Labs CBC & Chem 7: 04/30/22 03:38 04/30/22 03:38 Labs: Abnormal Lab Results - Last 24 Hours (Table) 04/30/22 04/30/22 04/30/22 Range/Units 03:38 03:38 06:39 MCH 25.8 L (27.0-32.0) pg MCHC 31.4 L (32.0-37.0) g/dL RDW 14.7 H (11.5-14.5) % MPV 12.7 H (9.5-12.2) fL Chloride 110 H (96-109) mmol/L Est GFR (CKD-EPI)NonAf 55.1 L (60.0-200.0) Glucose 192 H (70-110) mg/dL POC Glucose (mg/dL) 225 H (70-110) mg/dL 04/30/22 04/30/22 04/30/22 Range/Units 12:48 16:37 23:16 MCH (27.0-32.0) pg MCHC (32.0-37.0) g/dL RDW (11.5-14.5) % MPV (9.5-12.2) fL Chloride (96-109) mmol/L Est GFR (CKD-EPI)NonAf (60.0-200.0) Glucose (70-110) mg/dL POC Glucose (mg/dL) 233 H 157 H 226 H (70-110) mg/dL Microbiology - Last 24 Hours (Table) 04/29/22 00:10 Urine Culture - Final Urine,Voided 04/29/22 00:15 Blood Culture - Preliminary Blood No Growth after 24 hours 04/29/22 00:30 Blood Culture - Preliminary Blood No Growth after 24 hours Assessment and Plan Assessment: ASSESSMENT Status post fall Chronic dizziness Poorly controlled diabetes with A1c of 12.2 Acute kidney injury - pre renal -dehydration Possible UTI Severe Vitamin B12 deficiency Elevated alkaline phosphatase Hypertension Hyperlipidemia GERD PLAN: Patient's vitamin B12 came very low at 152, she was given 1000 mcg of IM B12 yesterday MRI of the lumbar spine done shows severe spinal canal stenosis at the level of [id number] Dr. Taylor EEG done showed no epileptiform activity Urine culture negative so ceftriaxone will be discontinued Continue with insulin for glycemic control and adjust the dose depending on blood glucose levels Continue with GI DVT prophylaxis Treatment plan was discussed in detail with the patient at bedside Further recommendations depending on the progress of the patient
[2022-05-01 07:38] LABS: Glucose,Whole Blood 190 mg/dL (70-110)
[2022-05-01] MEDS: ALBUTEROL NEBULIZED 2.5 MG/3 ML INHALATION SCH ×4 (08:20→19:57)
[2022-05-01] MEDS: INSULIN ASPART (NovoLOG) 100 UNIT/ML VIAL SQ SCH ×4 (08:38→21:43)
[2022-05-01] MEDS: METOPROLOL TARTRATE 50 MG TAB PO SCH ×2 (08:39→20:15)
[2022-05-01] MEDS: amLODIPine 10 MG TAB PO SCH (08:39)
[2022-05-01] MEDS: HEPARIN SODIUM,PORCINE/PF 5,000 UNIT/0.5 ML SYRINGE SQ SCH ×2 (08:39→20:12)
[2022-05-01] MEDS: EZETIMIBE 10 MG TAB PO SCH (08:39)
[2022-05-01] MEDS: ASPIRIN 81 MG PO SCH (08:39)
[2022-05-01] MEDS: FOLIC ACID 1 MG TAB PO SCH (08:39)
[2022-05-01] MEDS: PANTOPRAZOLE 40 MG TABLET PO SCH (08:41)
--- NOTE | 2022-05-01 12:16 | P.CNOR ---
History of Present Illness - HPI Consult date: 05/01/22 Consult reason: low back pain, other History of present illness: Patient is a pleasant 77-year-old female who seen and examined today at bedside. She is admitted to the hospital after she says that she slipped and fell the other day and had a potential syncopal episode. She says it was a simple slip on the ground and she fell. She denies any chest pain. She denies any headaches loss of consciousness. She denies any weakness in her lower extremities. She does say that she has had a long history of low back pain over 20 years. She says it worsened a couple years ago after a fall at that point. She says she does not have specific weakness in her lower extremities. She has pain mainly at her back and travels down the backs of her thighs. She says it is do to a slipped disc in her back and she has been managing this with occasional [id number] medications and monitoring her activity. She denies any specific treatment for her lower back in the past. She says that she is been feeling like she has been bending further forward as she ambulates and has some limitations in her ambulation. She says she has to use a cart to lean on at the grocery. She denies any significant numbness tingling in her lower extremities. She denies any weakness in her lower extremity is. She denies any changes in bowel bladder function. She denies any acute weakness in her lower extremity is. Review of Systems As stated per HPI. Denies any new changes in her lower extremities. She feels like she is getting further flex forward and she ambulates. Denies any changes in bowel bladder function. Currently denies any headaches or syncope. Denies any chest pain shortness of breath. She says she's been having back pain for over 20 years which worsened a couple years ago after a fall. She says she has managed with this, but has not had any specific treatment such as injections or surgical intervention. Past Medical History Past Medical History: COPD, Diabetes Mellitus, GERD/Reflux, Hyperlipidemia, Hypertension, Myocardial Infarction (AK), Musculoskeletal Disorder (Long history of low back pain with spondylolisthesis) Additional Past Medical History / Comment(s): diarrhea on and off d/t metformin per pt, seasonal sinus problems. states no current RX for COPD Last Myocardial Infarction Date:: 01/02/19 History of Any Multi-Drug Resistant Organisms: None Reported Past Surgical History: Heart Catheterization With Stent, Tonsillectomy, Tubal Ligation Additional Past Surgical History / Comment(s): D & C, colonoscopy with cecal polypectomy, bilateral cataract removals/lens implants. 2 cardiac stents. Past Anesthesia/Blood Transfusion Reactions: Postoperative Nausea & Vomiting (PONV) Additional Past Anesthesia/Blood Transfusion Reaction / Comm: had hallucinations with Reglan in post op Date of Last Stent Placement:: 2019 Past Psychological History: Anxiety Smoking Status: Never smoker Past Alcohol Use History: None Reported Past Drug Use History: None Reported - Past Family History Mother Family Medical History: CVA/TIA, Diabetes Mellitus, Deep Vein Thrombosis (DVT) Additional Family Medical History / Comment(s): "blood clots in her legs when she was in her 40's from taking control". TIAs Father Family Medical History: Cancer, Congestive Heart Failure (CHF), Coronary Artery Disease (CAD), Diabetes Mellitus, Myocardial Infarction (AK) Additional Family Medical History / Comment(s): Father had a AK at the age of 54yrs. CA: skin ("tip top of his ear"). He of CHF at the age of 84 yrs. Medications and Allergies Home Medications Medication Instructions Recorded Confirmed Type Aspirin 81 mg PO DAILY #30 chew 01/05/19 04/29/22 Rx Losartan [Cozaar] 100 mg PO DAILY #60 tab 01/05/19 04/29/22 Rx Nitroglycerin Sl Tabs [Nitrostat] 0.4 mg SUBLINGUAL Q5M PRN #20 tab 01/05/19 04/29/22 Rx amLODIPine [Norvasc] 10 mg PO DAILY #30 tab 01/05/19 04/29/22 Rx hydrALAZINE HCL [Apresoline] 100 mg PO BID #120 tab 01/05/19 04/29/22 Rx sitaGLIPtin PHOS/metFORMIN HCL 50 mg PO BID 01/11/19 04/29/22 History [Janumet 50-1,000 mg Tablet] Metoprolol Tartrate [Lopressor] 50 mg PO BID 12/15/19 04/29/22 History Omeprazole [PriLOSEC] 40 mg PO BID 12/15/19 04/29/22 History Pioglitazone [Actos] 30 mg PO DAILY 12/15/19 04/29/22 History Empagliflozin [Jardiance] 25 mg PO DAILY 04/29/22 04/29/22 History Ezetimibe [Zetia] 10 mg PO DAILY 04/29/22 04/29/22 History Allergies Allergy/AdvReac Type Severity Reaction Status Date / Time codeine AdvReac Vomiting Verified 03/09/21 06:54 metoclopramide HCl AdvReac Hallucinati Verified 03/09/21 06:54 [From Reglan] ons morphine AdvReac Vomiting Verified 03/09/21 06:54 ticagrelor [From Brilinta] AdvReac Nausea & Verified 03/09/21 06:54 Vomiting Physical Examination Osteopathic Statement: *. No significant issues noted on an osteopathic structural exam other than those noted in the History and Physical/Consult. - L Spine: dermatomal strength & reflexes bilateral Strength: hip flexion: 5/5 (At her back she stands with a flexed posture about 15. She is able flex to about 50 but extends to about a degree shy of neutral. She is nontender over the midline. Her lower extremities have 5 over 5 strength with hip flexion the extension dorsal flexion and plantar flexion. Compartments are s) Strength: hip extension: 5/5 (Compartments are soft bilaterally. Negative Andrew's. Sustained dorsal flexion plantar flexion and EHL intact. Capillary refill less than 2 seconds. No pain with internal/external rotation of her hips) Results - Labs Labs: Abnormal Lab Results - Last 24 Hours (Table) 04/30/22 04/30/22 04/30/22 Range/Units 12:48 16:37 23:16 POC Glucose (mg/dL) 233 H 157 H 226 H (70-110) mg/dL 05/01/22 Range/Units 07:37 POC Glucose (mg/dL) 190 H (70-110) mg/dL Microbiology - Last 24 Hours (Table) 04/29/22 00:30 Blood Culture - Preliminary Blood No Growth after 48 hours 04/29/22 00:15 Blood Culture - Preliminary Blood No Growth after 48 hours 04/29/22 00:10 Urine Culture - Final Urine,Voided H & H 04/28/22 04/30/22 Range/Units 23:31 03:38 Hgb 15.4 12.2 (11.4-16.0) gm/dL Hct 43.7 38.9 (34.0-46.0) % Coagulation 04/28/22 Range/Units 23:31 INR Cancelled Result Diagrams: 04/30/22 03:38 04/30/22 03:38 - Diagnostic results Lumbar MRI with/without contrast: report reviewed (Severe spinal stenosis L3 4 with moderate to severe stenosis L2-3. There is significant facet arthritis L2 to S1. No significant stenosis L4 5 L5-S1.), image reviewed (Imaging of her lumbar spine including MRI is reviewed with the report and images. She has significant changes particular at L3 4 with the grade 2 spondylolisthesis at that level. There is significant facet arthritis particularly L2-3 and L3 4. There is severe spinal stenosis L3 4 and moderate to ) Assessment and Plan Assessment: Status post fall 3 days ago with possible syncopal episode No acute instability or fractures Lumbar spondylolisthesis L3 4 Severe spinal stenosis L3 4 and moderate to severe stenosis L2-3 Neurogenic claudication Low back pain due to degenerative spondylosis Plan: Status post fall 3 days ago with possible syncopal episode No acute instability or fractures Lumbar spondylolisthesis L3 4 Severe spinal stenosis L3 4 and moderate to severe stenosis L2-3 Neurogenic claudication Low back pain due to degenerative spondylosis The patient is continuing her management in regards to her fall from a few days ago with single episode. She is continue management per medicine and I think that is appropriate. She seems to be doing better in terms of her overall status. From a spine surgery standpoint it is okay for the patient be discharged home to have regular follow up with us and potentially with interventional pain management for continued management of her lumbar spine issues. In terms patient's lumbar spine she has chronic changes including spondylolisthesis L3 4 and stenosis L2-3 and L3 4. Stenosis is significant and so it severe at L3 4 which she maintains good neurologic function at her lower extremities without specific deficit. She continues to have sustained strength at her lower extremities without any specific change in her neurologic function in her lower extremities. She has had some conservative treatment at her low back without specific intervention. I think that she could have good potential for treatment for her lumbar spine if she chooses to do so. She is not taking a ny regular medications and good do well with formal physical therapy as well as interventional pain management for her lumbar spine in the form of potential epidural steroid injections or facet injections. She would like to consider this option and would like to follow up as an outpatient as it becomes available over the next few weeks and I think that is reasonable. The patient could be a candidate for surgical intervention if all conservative measures were to fail. She says that she has no interest in any surgery. She says her daughter is interested in surgery for her and would consider discussing that further. She would like to follow up as an outpatient to have further discussion and I think that is reasonable. From orthopedic spine standpoint she is neurologically intact and it is okay for her to be discharged whenever she is clear with medicine service. I would like to follow her up in the next few weeks for recheck evaluation to monitor status and to consider continuing with interventional pain management, therapy and other conservative care. Again we discussed the possibility of surgical intervention which would likely involve decompression and fusion type surgery and the patient has not and she did not at this point. She would like to discuss this further as outpatient with her family present think that is reasonable. We'll plan to see her in the next few weeks for recheck evaluation after discharge.
[2022-05-01 12:57] LABS: Glucose,Whole Blood 214 mg/dL (70-110)
--- NOTE | 2022-05-01 13:22 | P.PN ---
Subjective Progress Note Date: 05/01/22 05/01/2022: Patient was seen for a follow-up. Patient is sitting comfortably in the recliner. patient offers no new complaints. 04/30/2022: Patient initially seen by Dr. Jefferson Granger. Please refer to his note for details. Patient is a 77-year-old female with dizziness and recent fall. On examination Dr. Granger felt patient has right lower extremity weakness. MRI of the lumbar spine was ordered. EEG was ordered by Dr. Granger. Patient states she has history of vertigo since summer. When she turns around, she feels dizzy. In July 2021 she remembers that if she would be working on the bumpy area of her garden, or if she steps on a wavy area, she would lose balance and fall. Patient states that in spring, she fell face forward while she was stepping on the curb. Patient states she has history of chronic low back pain for at least 2 years. She feels her right leg is also weak for last 2 years. The back pain could be 10/10 when she is working in the yard. Sometimes the pain does go away. Objective - Vital Signs Vital signs: Vital Signs Temp 98.5 F 05/01/22 07:00 Pulse 84 05/01/22 08:34 Resp 16 05/01/22 08:00 BP 162/79 05/01/22 07:00 Pulse Ox 98 05/01/22 07:00 FiO2 Intake & Output 04/30/22 05/01/22 05/01/22 18:59 06:59 18:59 Intake Total 200 0 Balance 200 0 Weight 74.843 kg Intake: Oral 200 0 Other: Voiding Method Bedside Commode Bedside Commode # Voids 3 2 1 - Exam Patient's mental status, speech and language functions are normal. Cranial nerves are normal. Muscle strength is normal in arms and legs. Patient's muscle strength is normal including hip flexion, hip adduction, hip abduction, knee extensions, ankle and toes. Reflexes are 1 at the knees, 0 ankles plantars are flat. - Labs CBC & Chem 7: 04/30/22 03:38 04/30/22 03:38 Labs: Abnormal Lab Results - Last 24 Hours (Table) 04/30/22 04/30/22 05/01/22 Range/Units 16:37 23:16 07:37 POC Glucose (mg/dL) 157 H 226 H 190 H (70-110) mg/dL 05/01/22 Range/Units 12:54 POC Glucose (mg/dL) 214 H (70-110) mg/dL Microbiology - Last 24 Hours (Table) 04/29/22 00:30 Blood Culture - Preliminary Blood No Growth after 48 hours 04/29/22 00:15 Blood Culture - Preliminary Blood No Growth after 48 hours 04/29/22 00:10 Urine Culture - Final Urine,Voided Assessment and Plan Assessment: Gait imbalance with tendency to fall. Patient has suffered from frequent falls. Etiology likely due to severe lumbar spinal stenosis at L3-4 level, and B12 deficiency Subjective right leg weakness. No significant weakness noted on examination today. Probable due to spinal stenosis. Visual hallucinations with some confusion at home, probable due to mild delirium. Rule out any central cause vs metabolic encephalopathy (hype rphosphatemia and uncontrolled DM) vs possible underlying cognitive impairement/dementia. Currently alert, oriented X4. Vitamin B12 deficiency. Possible acute UTI, culture negative, will defer to IM DM and is uncontrolled (HbA1c 12.2) Slight elevated hyperphosphatemia Acute kidney insufficiency History of myocardial infarction Plan: MRI lumbar spine revealed L3-L4 grade 1 anterolisthesis with severe spinal canal stenosis. I personally reviewed MRI, I agree with the findings. Orthopedics spine input appreciated. Patient was to follow up in their office as an outpatient so that patient's daughter can also understand the whole risks and benefits of the surgery. Patient will follow up with orthopedics spine as an outpatient. EEG was performed, which is normal awake and drowsy. No epileptiform activity was seen. TSH 2.25 normal, vitamin B12 very low 152, folate borderline 8.7. Patient has received B12 injection yesterday. We will give another vitamin B12 injection 1000 mcg IM daily for 2 days. Thereafter patient should receive B12 injection 1000 g IM weekly for 4 weeks and then twice a month. Also will start folate 1 mg daily. Recommend orthostatic vitals, as per Dr. Granger. Optimize control of diabetes to target A1c <7.0 PT and OT evaluate gait. PT has cleared patient for discharge. Neurologically clear for discharge. Discussed with patient's nurse.
[2022-05-01 17:15] LABS: Glucose,Whole Blood 245 mg/dL (70-110)
[2022-05-01 20:11] VITALS: RESP 18
[2022-05-01 20:33] LABS: Glucose,Whole Blood 251 mg/dL (70-110)
--- NOTE | 2022-05-02 03:54 | P.PN ---
Subjective Progress Note Date: 05/01/22 s/p Fall Ms. Jones is a 77-year-old female with a past medical history of COPD, diabetes mellitus, hypertension, hyperlipidemia, CAD admitted to the hospital after having a fall. She was evaluated by neurology and they think it is most likely because of her leg giving away and ordered an MRI of the lumbar spine which showed severe spinal stenosis. Today the patient is comfortably sitting in a chair by the bedside appears to be no acute distress. Patient states that she still feels dizzy when she turns around. She denies any chest pain or palpitations. No cough or difficulty in breathing. Nominal pain nausea vomiting or diarrhea. Patient states that she has chronic low back pain ongoing for the past 2 to 3 years along with weakness in the right lower extremity. Today the patient's vital signs temperature of 98 heart rate of 68 respiratory rate 18 blood pressure 176. 93 saturating at 97% on room air reviewing her labs from this morning white count of 6.1 hemoglobin 12.2 platelets of 207. Sodium 141 potassium 4.8 chloride 110 bicarb 20 BUN 99 creatinine of 1. 05/01/2022 Patient is seen and evaluated in follow-up today with multiple medical consultations including orthopedics and neurology following. Review of systems: Constitutional: No reports of fatigue, fever, or chills Cardiovascular: No reports of chest pain or palpitations Respiratory: No reports of shortness of breath or cough GI: No reports of nausea, vomiting, or diarrhea : No reports of dysuria or retention Neurovascular: No reports of weakness or numbness All medications have been reviewed Active Medications Acetaminophen (Acetaminophen Tab 325 Mg Tab) 650 mg PO Q6HR PRN PRN Reason: Mild Pain or Fever > 100.5 Albuterol Sulfate (Albuterol Nebulized 2.5 Mg/3 Ml) 2.5 mg INHALATION RT-QID [facility] Last Admin: 05/01/22 19:57 Dose: Not Given Amlodipine Besylate (Amlodipine 10 Mg Tab) 10 mg PO DAILY [facility] Last Admin: 05/01/22 08:39 Dose: 10 mg Aspirin (Aspirin 81 Mg) 81 mg PO DAILY [facility] Last Admin: 05/01/22 08:39 Dose: 81 mg Dextrose/Water (Dextrose 50% Syringe 50 Ml) 25 ml IVP PER PROTOCOL PRN; Protocol PRN Reason: Hypoglycemia Dextrose/Water (Dextrose 50% Syringe 50 Ml) 50 ml IVP PER PROTOCOL PRN; Protocol PRN Reason: Hypoglycemia Ezetimibe (Ezetimibe 10 Mg Tab) 10 mg PO DAILY [facility] Last Admin: 05/01/22 08:39 Dose: 10 mg Folic Acid (Folic Acid 1 Mg Tab) 1 mg PO DAILY [facility] Last Admin: 05/01/22 08:39 Dose: 1 mg Heparin Sodium (Porcine) (Heparin Sodium,Porcine/Pf 5,000 Unit/0.5 Ml Syringe) 5,000 unit SQ Q12HR [facility] Last Admin: 05/01/22 20:12 Dose: Not Given Insulin Aspart (Insulin Aspart (Novolog) 100 Unit/Ml Vial) 0 unit SQ ACHS [facility]; Protocol Last Admin: 05/01/22 21:43 Dose: 6 unit Metoprolol Tartrate (Metoprolol Tartrate 50 Mg Tab) 50 mg PO BID [facility] Last Admin: 05/01/22 20:15 Dose: 50 mg Naloxone HCl (Naloxone 0.4 Mg/Ml 1 Ml Vial) 0.2 mg IV Q2M PRN PRN Reason: Opioid Reversal Ondansetron HCl (Ondansetron 4 Mg/2 Ml Vial) 4 mg IVP Q8HR PRN PRN Reason: Nausea And Vomiting Pantoprazole Sodium (Pantoprazole 40 Mg Tablet) 40 mg PO QAM [facility] Last Admin: 05/01/22 08:41 Dose: 40 mg Physical exam: GEN. APPEARANCE: alert, in no apparent distress RESPIRATORY EXAM: normal lung sounds bilaterally. No wheeze or crackles CARDIOVASCULAR EXAM: regular rate, normal rhythm, normal heart sounds. GI/ABDOMINAL EXAM: soft, normal bowel sounds. Nontender EXTREMITIES EXAM: No edema NEUROLOGICAL EXAM: alert, oriented X3 SKIN EXAM: Insect bite oreilly seen on both upper and lower extremities and also few bite oreilly on her back Assessment: Status post fall Chronic dizziness Poorly controlled diabetes with A1c of 12.2 Severe spinal canal stenosis at the level of L3-L4 is noted on MRI Acute kidney injury - pre renal -dehydration Possible UTI, ruled out, cultures were negative Severe Vitamin B12 deficiency Elevated alkaline phosphatase Hypertension Hyperlipidemia GERD GI and DVT prophylaxis Full code PLAN: Recommend to continue current medications and management with orthopedics and neurology following. Patient's vitamin B12 came very low at 152, she was given 1000 mcg of IM B12 yesterday EEG done showed no epileptiform activity with neurology following undergoing neurologic workup and has been cleared by neurology along with orthopedics for conservative management and outpatient follow-up Continue with insulin for glycemic control and adjust the dose depending on blood glucose levels, recommend Accu-Cheks before meals and at bedtime Recommend PT/OT therapy evaluation and awaiting notes, possible home with home care Further recommendations depending on the progress of the patient Due to multiple complex medical issues, prognosis is guarded Possible discharge in 24 hours The impression and plan of care has been dictated by Samira Regan, Nurse Practitioner as directed. Dr. Rhea MD I have performed a history and examination and MDM of this patient, discussed the same with the dictator, and agree with the dictator's assessment and plan as written ,documented as a scribe. Based on total visit time, I have performed more than 50% of the visit. Objective - Vital Signs Vital signs: Vital Signs Temp 97.8 F 05/02/22 02:07 Pulse 58 L 05/02/22 02:07 Resp 18 05/02/22 02:07 BP 145/67 05/02/22 02:07 Pulse Ox 98 05/02/22 02:07 FiO2 Intake & Output 05/01/22 05/01/22 05/02/22 06:59 18:59 06:59 Intake Total 118 Balance 118 Intake: Oral 118 Other: Voiding Method Bedside Commode Bedside Commode Bedside Commode # Voids 2 3 3 - Labs CBC & Chem 7: 04/30/22 03:38 04/30/22 03:38 Labs: Abnormal Lab Results - Last 24 Hours (Table) 05/01/22 05/01/22 05/01/22 Range/Units 07:37 12:54 17:14 POC Glucose (mg/dL) 190 H 214 H 245 H (70-110) mg/dL 05/01/22 Range/Units 20:32 POC Glucose (mg/dL) 251 H (70-110) mg/dL Microbiology - Last 24 Hours (Table) 04/29/22 00:30 Blood Culture - Preliminary Blood No Growth after 48 hours 04/29/22 00:15 Blood Culture - Preliminary Blood No Growth after 48 hours
[2022-05-02 06:24] LABS: Glucose,Whole Blood 172 mg/dL (70-110)
[2022-05-02] MEDS: INSULIN ASPART (NovoLOG) 100 UNIT/ML VIAL SQ SCH (06:28)
[2022-05-02] MEDS: ALBUTEROL NEBULIZED 2.5 MG/3 ML INHALATION SCH ×2 (06:58→11:04)
[2022-05-02 07:38] VITALS: BP 148/82; PULSE 61; TEMP 98
[2022-05-02] MEDS ORDERED: INFLUENZA VACC HIGH-DOSE (65+) 240 MCG/0.7 ML SYRINGE IM ONE (08:00)
[2022-05-02] MEDS: amLODIPine 10 MG TAB PO SCH (08:01)
[2022-05-02] MEDS: METOPROLOL TARTRATE 50 MG TAB PO SCH (08:01)
[2022-05-02] MEDS: PANTOPRAZOLE 40 MG TABLET PO SCH (08:01)
[2022-05-02] MEDS: FOLIC ACID 1 MG TAB PO SCH (08:01)
[2022-05-02] MEDS: ASPIRIN 81 MG PO SCH (08:01)
[2022-05-02] MEDS: EZETIMIBE 10 MG TAB PO SCH (08:01)
[2022-05-02] MEDS: HEPARIN SODIUM,PORCINE/PF 5,000 UNIT/0.5 ML SYRINGE SQ SCH (08:02)
--- NOTE | 2022-05-02 08:10 | P.DS ---
Providers Date of admission: 04/29/22 01:46 Attending physician: Milagros Wilkerson Consults: 04/29/22 01:17 Consult Physician Urgent Consulting Provider: Jefferson Granger Consult Reason/Comments: Near syncope, vertigo, gait difficulty Do you want consulting provider notified?: Yes, Notify in am 04/30/22 13:49 Consult Physician Urgent Consulting Provider: Kem Taylor Consult Reason/Comments: Severe spinal stenosis L3-4, anterolisthesis Do you want consulting provider notified?: Yes Primary care physician: Dale Harden [facility] Course: The patient was essentially admitted for presyncope and dizziness found have significant lower extremity weakness and spinal stenosis. She is not a surgical candidate at this time and does not wish to have surgery. Neurology workup was nominal for any type of intracranial pathology. The patient is discharged in stable condition to follow-up with me about a week Patient Condition at Discharge: Fair Plan - Discharge Summary New Discharge Prescriptions: New RX: Folic Acid 1 mg PO DAILY #30 tab Continue RX: hydrALAZINE HCL [Apresoline] 100 mg PO BID #120 tab RX: Aspirin 81 mg PO DAILY #30 chew RX: Losartan [Cozaar] 100 mg PO DAILY #60 tab RX: Nitroglycerin Sl Tabs [Nitrostat] 0.4 mg SUBLINGUAL Q5M PRN #20 tab PRN Reason: Chest Pain RX: amLODIPine [Norvasc] 10 mg PO DAILY #30 tab RX: sitaGLIPtin PHOS/metFORMIN HCL [Janumet 50-1,000 mg Tablet] 50 mg PO BID RX: Pioglitazone [Actos] 30 mg PO DAILY RX: Metoprolol Tartrate [Lopressor] 50 mg PO BID RX: Omeprazole [PriLOSEC] 40 mg PO BID RX: Empagliflozin [Jardiance] 25 mg PO DAILY RX: Ezetimibe [Zetia] 10 mg PO DAILY Discharge Medication List RX: Aspirin 81 mg PO DAILY #30 chew 01/05/19 [Rx] RX: Losartan [Cozaar] 100 mg PO DAILY #60 tab 01/05/19 [Rx] RX: Nitroglycerin Sl Tabs [Nitrostat] 0.4 mg SUBLINGUAL Q5M PRN #20 tab 01/05/19 [Rx] RX: amLODIPine [Norvasc] 10 mg PO DAILY #30 tab 01/05/19 [Rx] RX: hydrALAZINE HCL [Apresoline] 100 mg PO BID #120 tab 01/05/19 [Rx] RX: sitaGLIPtin PHOS/metFORMIN HCL [Janumet 50-1,000 mg Tablet] 50 mg PO BID 01/11/19 [History] RX: Metoprolol Tartrate [Lopressor] 50 mg PO BID 12/15/19 [History] RX: Omeprazole [PriLOSEC] 40 mg PO BID 12/15/19 [History] RX: Pioglitazone [Actos] 30 mg PO DAILY 12/15/19 [History] RX: Empagliflozin [Jardiance] 25 mg PO DAILY 04/29/22 [History] RX: Ezetimibe [Zetia] 10 mg PO DAILY 04/29/22 [History] RX: Folic Acid 1 mg PO DAILY #30 tab 05/02/22 [Rx] Follow up Appointment(s)/Referral(s): Kem Taylor DO [Doctor of Osteopathic Medicine] - 3 Weeks [facility] [NON-STAFF] - 1 Week Dale Harden MD [Primary Care Provider] - 1 Week Activity/Diet/Wound Care/Special Instructions: May ambulate as tolerated. No repetitive bending twisting or lifting. No rigorous or heavy activity. Discharge Disposition: HOME SELF-CARE
[2022-05-02 12:09] LABS: Glucose,Whole Blood 283 mg/dL (70-110)
== END 2022-05-02 12:45 | disposition home or self-care (01) ==
LOC: EC 23:16 → 6NMEDSUR 04-29 01:46
PROVIDERS: ADMIT Family Medicine; ATTEND Family Medicine
DX: N17.9 Acute kidney failure, unspecified (principal); E86.0 Dehydration; E11.65 Type 2 diabetes mellitus with hyperglycemia; R55 Syncope and collapse; R26.2 Difficulty in walking, not elsewhere classified; E53.8 Deficiency of other specified B group vitamins; E83.39 Other disorders of phosphorus metabolism; N39.0 Urinary tract infection, site not specified; J44.9 Chronic obstructive pulmonary disease, unspecified; I10 Essential (primary) hypertension; K21.9 Gastro-esophageal reflux disease without esophagitis; E78.5 Hyperlipidemia, unspecified; I25.2 Old myocardial infarction; M50.321 Other cervical disc degeneration at C4-C5 level; M50.322 Other cervical disc degeneration at C5-C6 level; M43.16 Spondylolisthesis, lumbar region; M50.323 Other cervical disc degeneration at C6-C7 level; M50.31 Other cervical disc degeneration, high cervical region; M50.33 Other cervical disc degeneration, cervicothoracic region; M47.812 Spondylosis without myelopathy or radiculopathy, cervical region; M48.062 Spinal stenosis, lumbar region with neurogenic claudication; F41.9 Anxiety disorder, unspecified; Z95.5 Presence of coronary angioplasty implant and graft; Z98.51 Tubal ligation status; Z79.84 Long term (current) use of oral hypoglycemic drugs; Z79.899 Other long term (current) drug therapy; Z79.02 Long term (current) use of antithrombotics/antiplatelets; Z79.82 Long term (current) use of aspirin; Z88.5 Allergy status to narcotic agent; Z96.1 Presence of intraocular lens; Z98.42 Cataract extraction status, left eye; Z98.41 Cataract extraction status, right eye; Z83.3 Family history of diabetes mellitus; Z82.3 Family history of stroke; Z82.49 Family history of ischemic heart disease and other diseases of the circulatory system; Z88.8 Allergy status to other drugs, medicaments and biological substances; Z23 Encounter for immunization
CPT/HCPCS: 96365; 96372 ×4; 96376; 99285; 36415 ×2; 94640; 94760 ×3; 95816; 93005; 97116; 97162; 97166; 80053 ×2; 84443; 82607; 82746; 83735 ×2; 84100; 84484; 85025 ×2; 85610; 85730; 81001; 87040; 87086; 83036; 71045; 72125; 70450; 72148; 90662; G0378 ×4; G0008; J3420 ×2; J0696 ×2; J1644 ×4

== ENCOUNTER → 2022-08-30 | Outpatient (CLI) | payer MEDICARE ==
--- NOTE | 2022-08-30 19:15 | US ---
EXAMINATION TYPE: US kidneys/renal and bladder DATE OF EXAM: 08/30/2022 COMPARISON: 09/04/2016 CLINICAL INDICATION: Female, 77 years old with history of R80.9 PROTEINURIA; Abnormal labs. TECHNIQUE: Multiple sonographic images of the kidneys and bladder are obtained. EXAM MEASUREMENTS: Right Kidney: 10.9 x 4.9 x 5.5 cm Left Kidney: 9.6 x 4.2 x 4.7 cm Right Kidney: No hydronephrosis or masses seen Left Kidney: Mid medial anechoic lesion in renal sinus = 1.3 x 1.4 x 1.6 cm. Bladder: distended, anechoic Bilateral Jets not seen IMPRESSION: A new cystic area measuring 1.6 cm centrally in the left kidney, suspected parapelvic cyst. As it was not seen on 09/04/2016, 3 month follow-up ultrasound to reassess. There is no calyceal dilatation to s uggest hydronephrosis.
== END | disposition home or self-care (01) ==
LOC: RADUSWWP 14:37
PROVIDERS: ATTEND Family Medicine
DX: R80.9 Proteinuria, unspecified (principal)
CPT/HCPCS: 76770

== ENCOUNTER → 2023-04-05 | Outpatient (CLI) | payer MEDICARE ==
--- NOTE | 2023-04-05 17:25 | US ---
EXAMINATION TYPE: US kidneys/renal and bladder DATE OF EXAM: 04/05/2023 COMPARISON: US 08/30/2022 CLINICAL INDICATION: Female, 78 years old with history of N28.1 CYST OF KIDNEY, ACQUIRED; Renal cyst EXAM MEASUREMENTS: Right Kidney: 11.0 x 5.0 x 4.7 cm Left Kidney: 9.6 x 5.2 x 5.2 cm Right Kidney: Anechoic area seen upper pole: 0.9 x 0.9 x 0.6 cm. Left Kidney: Peripelvic renal cyst measurin.4 x 1.6 x 1.7 cm. Bladder: Appears wnl Bilateral Jets seen: No IMPRESSION: Hypoechoic/anechoic lesions in the right kidney are too small to definitively characterize. This conc shadia for neoplasm MRI renal mass protocol should be performed.
== END | disposition home or self-care (01) ==
LOC: RADUSWWP 14:00
PROVIDERS: ATTEND Family Medicine
DX: N28.1 Cyst of kidney, acquired (principal)
CPT/HCPCS: 76770

== ENCOUNTER → 2023-12-10 | Outpatient (CLI) | payer MEDICARE ==
--- NOTE | 2024-01-09 15:40 | MR ---
Patient: Marcella Jones L Ordering Physician: Unknown, Unknown ID: [id number] Phone, Pager: Phone: N/A Pager: N/A : [phone] Age/Gender: 78Y, F Primary Location: N/A Procedure: MR kidney wo/w con Stud y Date: 12/10/2023 1:44:12 PM EXAMINATION TYPE: MR abdomen wo/w con DATE OF EXAM: 12/25/2023 7:54 AM CLINICAL INDICATION: Abnormal ultrasound prior COMPARISON: Renal ultrasound 04/05/2023 MRI lumbar spine 04/30/2022. TECHNIQUE: Multiplanar multi-sequence imaging was performed without contrast. Post contrast imaging was performed. Post IV contrast subtraction images were also submitted for review. IV Contrast: 8 cc Gadavist FINDINGS: LOWER CHEST: No gross irregularity. ABDOMEN Liver: No evidence for hepatic steatosis or cirrhosis. Gallbladder and Bile ducts: No evidence for ductal dilation, or biliary stricture or evidence of chol edocholithiasis. The gallbladder is within normal limits. Pancreas: No ductal dilation. No evidence for solid mass. Spleen: Normal for size. Adrenal glands: Unremarkable. Kidneys: Bilateral renal cysts the largest on the right measuring up to 12 mm and on the left measuri ng up to 23 mm. These are high T2/low T1 signal. No suspicious enhancing renal neoplasms. Stomach and Bowel: No evidence for bowel wall thickening or evidence for obstruction. Retroperitoneum/Peritoneum: No evidence of pneumoperitoneum or free fluid. Vasculature: No aortic aneurysm. Musculoskeletal: The osseous structures appear intact. Lymph Nodes: No gross evidence for lymphadenopathy. Abdominal wall: Unremarkable. IMPRESSION: 1. Bilateral Bosniak type I equivalent renal cysts. No solid enhancing renal masses visualized. 2. No acute abdominal process.
== END | disposition home or self-care (01) ==
LOC: RADMRIMAIN 14:14
PROVIDERS: ATTEND Family Medicine
DX: N28.1 Cyst of kidney, acquired (principal); R93.429 Abnormal radiologic findings on diagnostic imaging of unspecified kidney
CPT/HCPCS: 74183; A9585

== ENCOUNTER → 2024-08-04 | Outpatient (CLI) | payer MEDICARE ==
[2024-08-04 14:54] LABS: ALT 20 U/L (8-44); AST 32 U/L (13-35); Albumin 4.4 g/dL (3.8-4.9); Albumin/Globulin Ratio 1.52 Ratio (1.60-3.17); Alkaline Phosphatase 84 U/L (41-126); BUN/Creat Ratio 21.23 Ratio (12.00-20.00); Blood Urea Nitrogen 27.6 mg/dL (9.0-27.0); Calcium 9.5 mg/dL (8.7-10.3); Carbon Dioxide 21.4 mmol/L (21.6-31.8); Chloride 107 mmol/L (96-109); Chol/HDL Ratio 4.21 Ratio; Globulin 2.9 g/dL (1.6-3.3); Glucose 175 mg/dL (70-110); LDL Cholesterol,Calculated 103.2 mg/dL (0.0-131.0); Potassium 5.1 mmol/L (3.5-5.5); Sodium 140 mmol/L (135-145); Total Bilirubin 0.3 mg/dL (0.3-1.2); Total Protein 7.3 g/dL (6.2-8.2)
== END | disposition home or self-care (01) ==
LOC: LABWHC1 10:17
PROVIDERS: ATTEND Internal Medicine Interventional Cardiology
DX: E78.2 Mixed hyperlipidemia (principal)
CPT/HCPCS: 36415; 80053; 80061